=== PATIENT | female | born 1955 | race Caucasian/White ===

== ENCOUNTER 2020-02-04 15:52 | Outpatient (REF) | payer OTHER, SELFPAY ==
[2020-02-05 13:31] LABS: BV Int Neg Control Negative (Negative); BV Int Pos Control Positive (Positive)
== END 2020-02-04 15:53 | disposition home or self-care (01) ==
LOC: HO.LNP 15:52
PROVIDERS: Visit Provider Nurse Practitioner Family
DX: N30.90 Cystitis, unspecified without hematuria (principal)
CPT/HCPCS: 87086; 87480; 87510; 87660

== ENCOUNTER → 2020-07-20 11:13 | Outpatient (BNVA) | payer OTHER, SELFPAY | PROVIDERS: PCP Nurse Practitioner Family; Visit Provider Internal Medicine ==

== ENCOUNTER → 2020-09-15 10:19 | Outpatient (BNVA) | payer MEDICARE, MEDICAID, SELFPAY | PROVIDERS: PCP Nurse Practitioner Family; Visit Provider Internal Medicine | DX: J45.909 Unspecified asthma, uncomplicated (principal); R05 Cough; F17.200 Nicotine dependence, unspecified, uncomplicated; Z79.899 Other long term (current) drug therapy; Z71.6 Tobacco abuse counseling | CPT/HCPCS: 99212 ==

== ENCOUNTER 2020-12-08 20:28 | Emergency (ER) | payer MEDICARE, MEDICAID, SELFPAY ==
--- NOTE | ~2020-12-08 | CT_ITS ---
EXAMINATION: CT ANGIOGRAM NECK AND HEAD CLINICAL INFORMATION: Left-sided neck and headache COMPARISON: 08/15/2016 TECHNIQUE: Initial noncontrast head CT was performed. Test bolus sequences followed by intravenous administration 70 mL of Omnipaque 350. Helical imaging was performed in the axial plane from the thoracic inlet to the skull vertex. Delayed postcontrast imaging of the head was also performed. The data was processed at the orthopaedic technologist's workstation for generation of MIP sequences. Angled MIPs and volume rendered reformatted images were also generated at an offline 3D workstation. Stenoses are assessed in accordance with NASCET criteria unless otherwise indicated. DOSE LOWERING TECHNIQUES: This CT examination was performed using dose optimization techniques as appropriate, variously including the following: - Automated exposure control - Adjustment of mA and/or kV according to patient size (this includes techniques or standardized protocols for targeted exams were dose is matched to indication/reason for exam; i.e. extremities or head) - Use of iterative reconstruction technique DLP: 2144 mGy-cm FINDINGS: Neck CTA: There is a classic 3 vessel branching pattern of the aortic arch. Normal appearance of the visualized aortic arch and proximal branches. No evidence of stenosis at the branch origins. Both vertebral arteries are widely patent throughout their extracranial cervical course. There is mild calcification at the common carotid artery bifurcations bilaterally without significant stenosis. Otherwise normal appearance of the common and internal carotid arteries without focal stenosis. Brain CTA: Normal appearance of the intradural vertebral arteries; the left vertebral artery is dominant. Normal appearance of the basilar and superior cerebellar arteries. Normal appearance of the posterior cerebral arteries bilaterally. Normal appearance of the intradural internal carotid arteries without focal stenosis. Normal appearance of the anterior cerebral and middle cerebral arteries without focal occlusion or stenosis. Normal anterior communicating artery. Normal arborization of the middle cerebral arteries. CT Head: No intracranial mass, hemorrhage, extra-axial collection, or midline shift. The rodriguez-white matter differentiation is preserved. No pathologic intra-axial enhancement or regional oligemia. No hydrocephalus. The mastoid air cells and paranasal sinuses remain well aerated. CT Neck: The thyroid gland and remaining cervical soft tissues are normal in appearance. Patient is status post ACDF at C5-C6. Upper Chest: No abnormalities in the visualized lung apices or upper mediastinum. CT/CT angio head neck IMPRESSION: No acute intracranial findings. No hemodynamically significant stenosis in the major arteries of the neck. No large vessel occlusion or significant stenosis in the intracranial circulation.
[2020-12-08 20:41] VITALS: BP 143/96; PULSE 61; RESP 17; TEMP 36.7; O2SAT 96; BMI 33.2
--- NOTE | 2020-12-08 21:24 | ED_ITS ---
HPI - General Adult General Chief complaint: General Medical Stated complaint: headache Time Seen by Provider: 12/08/20 21:24 Source: patient Mode of arrival: ambulatory Limitations: no limitations History of Present Illness HPI narrative: Patient complaining of left-sided headache for last 1 week since yesterday noticed pain going to the neck 50 when she moves her neck on the left side also feel off balance which is going on for a while no nausea no vomiting patient has history of TIAs/CVA with right-sided weakness with full recovery on Plavix Related Data Home Medications Medication Instructions Recorded Confirmed cholecalciferol (vitamin D3) 10 10 mcg PO DAILY 02/03/20 08/03/20 mcg (400 unit) tablet citalopram 40 mg tablet 40 mg PO DAILY 02/03/20 08/03/20 lorazepam 1 mg tablet 1 mg PO BID PRN 02/03/20 08/03/20 albuterol sulfate 90 mcg/actuation 2 puff INHALATION Q6H PRN 07/20/20 08/03/20 aerosol inhaler Previous Rx's Medication Instructions Recorded trazodone 50 mg tablet 100 mg PO DAILY 30 Days #60 tab 05/18/20 betamethasone dipropionate 0.05 % 1 appl TOPICAL BID PRN #45 g 08/03/20 topical cream mecobalamin (vitamin B12) 1,000 1,000 mcg SUBLINGUAL DAILY 90 Days 08/27/20 mcg disintegrating #90 tab tablet,sublingual gabapentin 600 mg tablet 600 mg PO TID 90 Days #270 tab 09/15/20 metoprolol tartrate 50 mg tablet 50 mg PO BID 90 Days #180 tab 10/05/20 famotidine 40 mg tablet 40 mg PO BEDTIME #90 tab 10/12/20 atorvastatin 40 mg tablet 40 mg PO DAILY 90 Days #90 tab 11/01/20 clopidogrel 75 mg tablet 75 mg PO DAILY #90 tab 11/08/20 montelukast 10 mg tablet 10 mg PO DAILY 90 Days #90 tab 11/11/20 cyclobenzaprine 10 mg tablet 10 mg PO BEDTIME PRN 30 Days #30 12/08/20 tab Allergies Allergy/AdvReac Type Severity Reaction Status Date / Time aspirin [Aspirin] Allergy Severe ANAPHYLAXIS Verified 12/08/20 20:41 codeine [Codeine] Allergy Intermediate SHORTNESS Verified 12/08/20 20:41 OF BREATH, sob Penicillins Allergy Intermediate rash Verified 12/08/20 20:41 phenytoin Allergy Intermediate SHORTNESS Verified 12/08/20 20:41 OF BREATH,hives shrimp Allergy Mild ITCHY, Verified 12/08/20 20:41 anaphylaxis adhesive tape [ADHESIVE TAPE] Allergy Unknown RASH Verified 12/08/20 20:41 Review of Systems Review of Systems: Yes all other systems are reviewed and are negative [facility]LY [facility] Past Medical History Medical History (Updated 12/09/20 @ 00:39 by Alejandro Mayo MD) Asthma Cough CVA (cerebral vascular accident) Diabetes Dyslipidemia Esophageal stenosis Left sided sciatica Low vitamin B12 level Smoker TIA (transient ischemic attack) Vascular dementia Surgical History H/O arthroscopy H/O: hysterectomy History of removal of cyst Family History Family History Father Cirrhosis Brain cancer Mother No problems noted. Social History Social History Cigarette Packs Per Day: 0.5 Cigarettes Per Day: 5 Years Smoked: age 13 Advance Directives: No Advance Directives Information Provided: Yes Physical Exam Vital Signs: Vital Signs: Last Vital Signs Temp 98.1 F 12/08/20 20:41 Pulse 58 12/08/20 21:45 Resp 16 12/08/20 21:45 BP 124/50 L 12/08/20 21:45 Pulse Ox 94 12/08/20 21:45 Body Mass Index 33.2 Appearance: Alert. Oriented X3. No acute distress. Eyes: PERRLA, No Nystagmus ENT: Pharynx normal. Oral Mucosa moist no temporal artery tenderness no scalp tenderness Neck: Normal inspection. Neck supple. CVS: Normal heart rate and rhythm. Pulses normal. Respiratory: No respiratory distress. Equal air entry bilateral, no wheezing/rales/rhonchi Abdomen: Soft and nontender. Bowel sounds are present, no mass palpable, no CVA tenderness Skin: Skin warm and dry. Normal skin color. Normal skin turgor. Extremities: No lower extremity edema. No calf tenderness Neuro: Oriented X 3. No motor deficit. No sensory deficit.No cerebellar signs , cranial nerves II-XII intact Medical Decision Making MDM Narrative Medical decision making narrative: Patient's left scalp tenderness with pain in the left side of the neck CT head and neck is negative for any acute pathology patient comfortable having headache for the last 1 week likely tension headache. Discharge patient home Lab Data Lab results reviewed: Yes I reviewed the patient's lab results. Result diagrams: 12/08/20 21:44 12/08/20 21:44 Labs: Lab Results 12/08/20 12/08/20 Range/Units 21:44 21:44 WBC 9.9 (4.8-10.8) X10*3/uL RBC 4.14 L (4.20-5.50) X10*6/uL Hgb 10.1 L (12.0-16.0) g/dl Hct 32.1 L (37-47) % MCV 77.5 L (80-98) fL MCH 24.4 L (27.0-33.0) pg MCHC 31.5 (31.0-35.0) g/dl RDW 17.5 H (11.0-16.0) % Plt Count 272 (160-400) X10*3/uL MPV 10.3 (9.4-12.3) fL Immature Gran % (Auto) 0.4 (0.0-0.4) % Neut % (Auto) 50.8 (45-73) % Lymph % (Auto) 36.7 (20-40) % [place] % (Auto) 8.6 (2-11) % Eos % (Auto) 3.0 (0-4) % Baso % (Auto) 0.5 (0-2) % Lymph # (Auto) 3.6 (1.2-4.9) X10*3/uL [place] # (Auto) 0.9 (0.1-1.2) X10*3/uL Eos # (Auto) 0.3 (0.0-0.4) X10*3/uL Baso # (Auto) 0.1 (0.0-0.2) X10*3/uL Abs Immat Gran (auto) 0.04 H (0.00-0.03) X10*3/uL Absolute Neuts (auto) 5.0 (2.0-8.3) X10*3/uL Absolute Nucleated RBC 0.000 (0.0-0.012) X10*3/uL Nucleated RBC % (auto) 0.0 (0.0-0.2) /100WBC Sodium 141 (135-145) mmol/L Potassium 4.1 (3.3-5.1) mmol/L Chloride 109 H (96-108) mmol/L Carbon Dioxide 25 (22-29) mmol/L Anion Gap 11 L (12-20) BUN 9 (9-16) mg/dL Creatinine 0.96 (0.5-1.4) mg/dL Estim Creat Clear Calc 55.8 Estimated GFR 58 Random Glucose 100 (60-115) mg/dL Calcium 8.9 (8.4-10.2) mg/dL Discharge Plan Discharge Clinical Impression: Headache Qualifiers: Headache type: unspecified Headache chronicity pattern: chronic headache Intractability: not intractable Qualified Code(s): R51.9 - Headache, unspecified Patient Disposition: Home, Self-Care Instructions: Acute Headache (ED) Additional Instructions: Rest at home Tylenol for headache Follow with PCP if any concerns Prescriptions: No Action trazodone 50 mg tablet 100 mg PO DAILY 30 Days Qty: 60 RF: 2 mecobalamin (vitamin B12) 1,000 mcg tablet,disintegrating 1,000 mcg sublingual DAILY 90 Days Qty: 90 RF: 0 gabapentin 600 mg tablet 600 mg PO TID 90 Days Qty: 270 RF: 0 metoprolol tartrate 50 mg tablet 50 mg PO BID 90 Days Qty: 180 RF: 0 famotidine 40 mg tablet 40 mg PO BEDTIME Qty: 90 RF: 1 atorvastatin 40 mg tablet 40 mg PO DAILY 90 Days Qty: 90 RF: 1 clopidogrel 75 mg tablet 75 mg PO DAILY Qty: 90 RF: 0 montelukast 10 mg tablet 10 mg PO DAILY 90 Days Qty: 90 RF: 3 cyclobenzaprine 10 mg tablet 10 mg PO BEDTIME PRN (Reason: muscle spasm) 30 Days Qty: 30 RF: 1 citalopram 40 mg tablet 40 mg PO DAILY RF: 0 lorazepam 1 mg tablet 1 mg PO BID PRNRF: 0 cholecalciferol (vitamin D3) 10 mcg (400 unit) tablet 10 mcg PO DAILY RF: 0 betamethasone dipropionate 0.05 % cream 1 appl topical BID PRN (Reason: skin irritation) Qty: 45 RF: 0 albuterol sulfate 90 mcg/actuation HFA aerosol inhaler 2 puff inhalation Q6H PRNRF: 0
[2020-12-08 21:45] VITALS: BP 124/50; PULSE 58; RESP 16; O2SAT 94
[2020-12-08 21:49] LABS: MANUAL DIFF FLAG NO
[2020-12-08 21:50] LABS: Basophils Absolute Auto 0.1 X10*3/uL (0.0-0.2); Basophils Percent Auto 0.5 % (0-2); Eosinophils Absolute Auto 0.3 X10*3/uL (0.0-0.4); Hematocrit 32.1 % (37-47); Hemoglobin 10.1 g/dl (12.0-16.0); Imm Gran Abs Auto 0.04 X10*3/uL (0.00-0.03); Imm Gran Pct Auto 0.4 % (0.0-0.4); Lymphocytes Absolute Auto 3.6 X10*3/uL (1.2-4.9); Lymphocytes Percent Auto 36.7 % (20-40); Mean Corpuscular HGB Conc 31.5 g/dl (31.0-35.0); Mean Corpuscular Hemoglobin 24.4 pg (27.0-33.0); Mean Corpuscular Volume 77.5 fL (80-98); Mean Platelet Volume 10.3 fL (9.4-12.3); Monocytes Absolute Auto 0.9 X10*3/uL (0.1-1.2); Monocytes Percent Auto 8.6 % (2-11); Neutrophils Percent Auto 50.8 % (45-73); Platelet Count 272 X10*3/uL (160-400); Red Blood Count 4.14 X10*6/uL (4.20-5.50); Red Cell Distribution Width 17.5 % (11.0-16.0); White Blood Count 9.9 X10*3/uL (4.8-10.8)
[2020-12-08 22:13] LABS: Anion Gap 11 (12-20); Blood Urea Nitrogen 9 mg/dL (9-16); Calcium 8.9 mg/dL (8.4-10.2); Carbon Dioxide 25 mmol/L (22-29); Chloride 109 mmol/L (96-108); Creatinine Clr Calc Pharmacy 55.8; Estimated Glomerular Filt Rate 58; Glucose Random 100 mg/dL (60-115); Potassium 4.1 mmol/L (3.3-5.1); Sodium 141 mmol/L (135-145)
[2020-12-09] MEDS: iohexoL 350 MG/ML 100 ML INFUS..BTL 70 ML IV (00:06)
== END 2020-12-09 01:11 | disposition home or self-care (01) ==
PROVIDERS: Emergency Provider Internal Medicine; PCP Nurse Practitioner Family
DX: R51.9 Headache, unspecified (principal); Z86.73 Personal history of transient ischemic attack (TIA), and cerebral infarction without residual deficits; E11.9 Type 2 diabetes mellitus without complications; E78.5 Hyperlipidemia, unspecified; F17.210 Nicotine dependence, cigarettes, uncomplicated; Z79.02 Long term (current) use of antithrombotics/antiplatelets; Z79.899 Other long term (current) drug therapy
CPT/HCPCS: 36415; 70496; 70498; 80048; 85025; 99284; Q9967

== ENCOUNTER 2020-12-26 09:15 | Outpatient (REF) | payer MEDICARE, MEDICAID, SELFPAY ==
[2020-12-26 11:24] LABS: Basophils Percent Auto 0.6 % (0-2); Estimated Average Glucose 126 mg/dL; Hemoglobin 10.7 g/dl (12.0-16.0); MANUAL DIFF FLAG SCAN; PLT CLUMP 1; SCAN SMEAR FLAG 1
[2020-12-26 11:26] LABS: Eosinophils Absolute Auto 0.2 X10*3/uL (0.0-0.4); Hematocrit 35.1 % (37-47); Imm Gran Abs Auto 0.01 X10*3/uL (0.00-0.03); Imm Gran Pct Auto 0.1 % (0.0-0.4); Lymphocytes Absolute Auto 2.4 X10*3/uL (1.2-4.9); Mean Corpuscular HGB Conc 30.5 g/dl (31.0-35.0); Mean Corpuscular Hemoglobin 23.9 pg (27.0-33.0); Mean Corpuscular Volume 78.5 fL (80-98); Mean Platelet Volume 10.5 fL (9.4-12.3); Monocytes Absolute Auto 0.7 X10*3/uL (0.1-1.2); Monocytes Percent Auto 9.3 % (2-11); Neutrophils Absolute Auto 3.7 X10*3/uL (2.0-8.3); Platelet Count 275 X10*3/uL (160-400); Red Blood Count 4.47 X10*6/uL (4.20-5.50); Red Cell Distribution Width 18.8 % (11.0-16.0)
[2020-12-26 11:47] LABS: Creatinine Urine 80.29 mg/dL; Microalbum/Creatinine Ratio Ur 11.2 ug/mg cr
[2020-12-26 11:53] LABS: Alanine Aminotransferase 29 U/L (0-31); Alkaline Phosphatase 59 U/L (39-117); Anion Gap 14 (12-20); Aspartate Amino Transferase 26 U/L (5-31); Blood Urea Nitrogen 8 mg/dL (9-16); Carbon Dioxide 24 mmol/L (22-29); Chloride 107 mmol/L (96-108); Cholesterol 121 mg/dL; Estimated Glomerular Filt Rate > 60; Glucose Fasting 109 mg/dL (60-99); HDL Cholesterol 43 mg/dL; LDL Cholesterol Calculated 56 mg/dl; Potassium 4.4 mmol/L (3.3-5.1); Sodium 141 mmol/L (135-145); Total Protein 6.8 g/dL (6.5-8.0); Triglycerides 112 mg/dL
[2020-12-26 11:58] LABS: TSH reflex Free T4 0.73 uIU/mL (0.32-4.0)
[2020-12-26 12:02] LABS: Bilirubin Total 0.2 mg/dL (0.0-1.0)
[2020-12-26 12:56] LABS: SLIDE REVIEW VERIFIED
[2020-12-28 09:36] LABS: Vitamin B12 646 pg/mL (200-900)
== END 2020-12-26 09:16 | disposition home or self-care (01) ==
LOC: HO.HMGCLDS 09:15
PROVIDERS: PCP Nurse Practitioner Family; Visit Provider Nurse Practitioner Family
DX: E11.9 Type 2 diabetes mellitus without complications (principal); E53.8 Deficiency of other specified B group vitamins
CPT/HCPCS: 36415; 80053; 80061; 82043; 82607; 83036; 84443; 85025

== ENCOUNTER 2021-01-27 | Outpatient (REF) | payer MEDICARE, MEDICAID, SELFPAY ==
[2021-02-01 15:27] LABS: FIT1 NEGATIVE (NEGATIVE)
[2021-02-01 15:28] LABS: FIT Int Ctl YES; FIT2 POSITIVE (NEGATIVE)
== END 2021-01-27 00:01 | disposition home or self-care (01) ==
LOC: HO.LNP
PROVIDERS: Visit Provider Nurse Practitioner Family
DX: D64.9 Anemia, unspecified (principal)
CPT/HCPCS: 82274

== ENCOUNTER → 2021-03-23 10:13 | Outpatient (BNVA) | payer MEDICARE, MEDICAID, SELFPAY | PROVIDERS: PCP Nurse Practitioner Family; Visit Provider Internal Medicine | DX: J45.909 Unspecified asthma, uncomplicated (principal); J44.9 Chronic obstructive pulmonary disease, unspecified; F17.200 Nicotine dependence, unspecified, uncomplicated | CPT/HCPCS: 99212 ==

== ENCOUNTER 2021-07-13 10:13 | Outpatient (REF) | payer OTHER, MEDICAID, SELFPAY ==
[2021-07-13 11:32] LABS: Appearance Urine CLEAR; Color Urine YELLOW; Glucose Urine UA NEG (NEG); Leukocyte Esterase Urine TRACE (NEG); Nitrite Urine NEG (NEG); PH 5.5 (5.0-8.0); UACC Culture Trigger YES; Urine Blood NEG (NEG); Urine Ketones NEG (NEG); Urine Protein NEG (NEG-TRACE)
[2021-07-13 11:50] LABS: Bacteria Urine TRACE /LPF; RBC Urine 0 /HPF (0); Squamous Epithelial Cell Urine TRACE /LPF
[2021-07-13 12:14] LABS: Alanine Aminotransferase 32 U/L (0-31); Alkaline Phosphatase 57 U/L (39-117); Anion Gap 14 (12-20); Aspartate Amino Transferase 30 U/L (5-31); Bilirubin Total 0.3 mg/dL (0.0-1.0); Blood Urea Nitrogen 12 mg/dL (9-16); Calcium 9.7 mg/dL (8.4-10.2); Carbon Dioxide 25 mmol/L (22-29); Chloride 105 mmol/L (96-108); Cholesterol 128 mg/dL; Estimated Average Glucose 131 mg/dL; Estimated Glomerular Filt Rate 60; Glucose Fasting 135 mg/dL (60-99); HDL Cholesterol 46 mg/dL; Hemoglobin A1c % 6.2 %; LDL Cholesterol Calculated 58 mg/dl; Potassium 4.6 mmol/L (3.3-5.1); Sodium 139 mmol/L (135-145); Total Protein 7.1 g/dL (6.5-8.0); Triglycerides 124 mg/dL
[2021-07-13 12:15] LABS: Vitamin D 25-OH Total 12.2 ng/mL (>30)
[2021-07-13 12:20] LABS: Creatinine Urine 64.05 mg/dL; Microalbum/Creatinine Ratio Ur 9.3 ug/mg cr
[2021-07-13 12:25] LABS: Vitamin B12 328 pg/mL (200-900)
== END 2021-07-13 10:14 | disposition home or self-care (01) ==
LOC: HO.HMGCLDS 10:13
PROVIDERS: PCP Nurse Practitioner Family; Visit Provider Nurse Practitioner Family
DX: Z00.00 Encounter for general adult medical examination without abnormal findings (principal); E11.9 Type 2 diabetes mellitus without complications; E53.8 Deficiency of other specified B group vitamins; Z78.0 Asymptomatic menopausal state
CPT/HCPCS: 36415; 80053; 80061; 81001; 82043; 82306; 82607; 82746; 83036; 84443; 87086

== ENCOUNTER 2021-08-04 08:21 | Outpatient (REF) | payer OTHER, SELFPAY ==
--- NOTE | ~2021-08-04 | US_ITS ---
EXAMINATION: US ABDOMEN COMPLETE CLINICAL INFORMATION: Epigastric pain. COMPARISON: Renal ultrasound 06/26/2019. TECHNIQUE: Real-time imaging of the abdominal viscera. FINDINGS: PANCREAS: The visualized portion of the pancreas head and body are normal, portion of the pancreatic body and tail, not visualized are obscured by bowel gas. ABDOMINAL AORTA: The proximal, mid, and distal segments are normal in caliber. INFERIOR VENA CAVA: Visualized portions are normal. LIVER: The liver is normal in size. The liver contour is normal. No focal hepatic lesion. There is no intrahepatic biliary duct dilatation seen. GALLBLADDER: Normal. The gallbladder is physiologically distended without evidence of stones, sludge, polyps, wall thickening or pericholecystic fluid. COMMON BILE DUCT: Normal in caliber measuring 0.3 cm in diameter. RIGHT KIDNEY: Normal. No hydronephrosis. No renal calculi or focal parenchymal lesions. The kidney measures 10.1 cm in maximum dimension. LEFT KIDNEY: Normal. No hydronephrosis. No renal calculi or focal parenchymal lesions. The kidney measures 9.1 cm in maximum dimension. SPLEEN: Normal. The spleen measures 9.7 cm in maximum dimension. FREE FLUID: None. US/US abdomen complete IMPRESSION: Normal ultrasound, no evidence of gallbladder disease or gallstones. No ultrasound explanation for patient's epigastric pain. Pancreas partially visualized obscured by bowel gas.
== END 2021-08-04 08:22 | disposition home or self-care (01) ==
LOC: HO.HMGCX 08:21
PROVIDERS: Visit Provider Internal Medicine
DX: R10.13 Epigastric pain (principal)
CPT/HCPCS: 76700

== ENCOUNTER 2021-08-18 08:43 | Day surgery (SDC) | payer MEDICARE, SELFPAY ==
[2021-08-13 09:25] VITALS: BMI 33.0
--- NOTE | 2021-08-17 10:29 | HO.ANESPROP2 ---
Documented by User: Ghazal Aceves NP 08/17/21 10:31 HPI - Anesthesia Eval Consult details Narrative: 66yo F for Upper Endoscopy *Multiple Med Allergies* PMFSH Active Problems Active Problems: All Active Problems (Updated 07/13/21 @ 09:59 by Ilan Holden, [facility]) Screening for breast cancer (Acute) Postmenopausal (Acute) Physical exam (Acute) Allergic rhinitis (Acute) Anemia (Acute) Insomnia (Acute) Asthma (Acute) Dermatitis (Acute) Cough (Acute) Smoker (Acute) B12 deficiency (Acute) Diabetes (Acute) COPD (chronic obstructive pulmonary disease) (Acute) Vaginal itching (Acute) Dysuria (Acute) Past Medical History Medical History Allergic rhinitis Asthma Cough CVA (cerebral vascular accident) Diabetes Dyslipidemia Esophageal stenosis Left sided sciatica Low vitamin B12 level Smoker TIA (transient ischemic attack) Vascular dementia Family History Family History Father Cirrhosis Brain cancer Mother No problems noted. Surgical History Surgical History H/O arthroscopy H/O: hysterectomy History of removal of cyst Social History Social History Housing: House Patient Tobacco Use Status: Current everyday Tobacco user Tobacco use type: Cigarette Cigarette Packs Per Day: 0.5 Cigarettes Per Day: 4 Years Smoked: age 13 e-Cigarette/Vaping Use: Never Used Second Hand Smoke Exposure: No Use of substances other than those prescribed or required for medical reasons: No Are you DNR?: No Advance Directives: No Advance Directives Information Provided: Yes Current occupational status: retired and disabled Meds Allergies Allergy/AdvReac Type Severity Reaction Status Date / Time aspirin [Aspirin] Allergy Severe ANAPHYLAXIS Verified 07/13/21 09:32 codeine [Codeine] Allergy Intermediate SHORTNESS Verified 07/13/21 09:32 OF BREATH, sob Penicillins Allergy Intermediate rash Verified 07/13/21 09:32 phenytoin Allergy Intermediate SHORTNESS Verified 07/13/21 09:32 OF BREATH,hives shrimp Allergy Mild ITCHY, Verified 07/13/21 09:32 anaphylaxis adhesive tape [ADHESIVE TAPE] Allergy Unknown RASH Verified 07/13/21 09:32 Home Medications Medication Instructions Recorded Confirmed Last Taken Type albuterol sulfate 90 mcg/actuation 2 puff INHALATION Q6H PRN 07/20/20 08/03/20 Unknown History aerosol inhaler Exam Exam Date and Time: August 17, 2021 1029 Height,Weight and Vital Signs: Height 5 ft 2 in Weight 82.1 kg Pertinent Lab Results Pertinent Lab Results: Laboratory Tests 12/26/20 07/13/21 09:21 10:20 WBC 7.0 Hgb 10.7 L Hct 35.1 L Plt Count 275 Sodium 139 Potassium 4.6 Chloride 105 Carbon Dioxide 25 BUN 12 Creatinine 0.94 Assessment and Plan Assessment Anesthesia Assessment: Chart Reviewed Documented by User: Korey Escalante MD 08/18/21 14:56 HPI - Anesthesia Eval Consult details Narrative: 66yo F for Upper Endoscopy *Multiple Med Allergies* CVA , residual weakness right side , headache . PMFSH Past Medical History Medical History Allergic rhinitis Asthma Cough CVA (cerebral vascular accident) Diabetes Dyslipidemia Esophageal stenosis Left sided sciatica Low vitamin B12 level Smoker TIA (transient ischemic attack) Vascular dementia Family History Family History Father Cirrhosis Brain cancer Mother No problems noted. Family history of problems with anesthesia: No Surgical History Surgical History H/O arthroscopy H/O: hysterectomy History of removal of cyst History of Problems with Anesthesia: Yes (Delayed emergence ) Social History Social History Housing: House Patient Tobacco Use Status: Current everyday Tobacco user Tobacco use type: Cigarette Cigarette Packs Per Day: 0.5 Cigarettes Per Day: 4 Years Smoked: age 13 e-Cigarette/Vaping Use: Never Used Second Hand Smoke Exposure: No Use of substances other than those prescribed or required for medical reasons: No Are you DNR?: No Advance Directives: No Advance Directives Information Provided: Yes Current occupational status: retired and disabled Meds Allergies Allergy/AdvReac Type Severity Reaction Status Date / Time aspirin [Aspirin] Allergy Severe ANAPHYLAXIS Verified 07/13/21 09:32 codeine [Codeine] Allergy Intermediate SHORTNESS Verified 07/13/21 09:32 OF BREATH, sob Penicillins Allergy Intermediate rash Verified 07/13/21 09:32 phenytoin Allergy Intermediate SHORTNESS Verified 07/13/21 09:32 OF BREATH,hives shrimp Allergy Mild ITCHY, Verified 07/13/21 09:32 anaphylaxis adhesive tape [ADHESIVE TAPE] Allergy Unknown RASH Verified 07/13/21 09:32 Home Medications Medication Instructions Recorded Confirmed Last Taken Type albuterol sulfate 90 mcg/actuation 2 puff INHALATION Q6H PRN 07/20/20 08/03/20 Unknown History aerosol inhaler Exam Airway Mallampati Class: III TM Dist: >3cm Neck ROM: Limited Denture: Upper Loose/Missing/Broken Teeth: Yes Heart: S1,S2 Lungs: b/l breath sounds Assessment and Plan Assessment Anesthesia Assessment: Anesthesia Plan Discussed Final Anesthetic Review Family History of Problems with Anesthesia: No History of Problems with Anesthesia: Yes (Delayed emergence ) NPO: Yes ASA Class: III Final Preanesthetic Review: Meds/Allgs Chart Reviewed, Consent Obtained/Reviewed and Anes Risks/Benef Reviewed Patient Risk: Intermediate Procedure Risk: Intermediate Anesthetic Plan Anesthetic Plan: MAC: Disposition: Standard PACU
[2021-08-18 09:08] VITALS: BMI 33.0
[2021-08-18 09:31] VITALS: BP 131/66; PULSE 58; RESP 16; TEMP 35.7; O2SAT 97
[2021-08-18 09:35] LABS: Glucose, Whole Blood 111 mg/dL (60-115)
[2021-08-18] MEDS: Lactated Ringers 1,000 ML 100 ML IVCONT (09:41)
[2021-08-18 10:50] VITALS: BP 100/58; PULSE 61; RESP 16; TEMP 36.2; O2SAT 94
--- NOTE | 2021-08-18 10:53 | P.BOP_ITS ---
Brief Operative Note Date of Service: 08/18/21 Pre-op diagnosis: Abdominal pain Post-op diagnosis: other (Mild gastritis) Procedure: EGD with biopsies Surgeon: Jaime Jensen Anesthesia: MAC Was an Subway Train Driver used for this Procedure?: No Estimated blood loss (mL): 2.0 Pathology: other (A. Descending duodenum B. Gastric antrum) Condition: stable Disposition: PACU
[2021-08-18 11:05] VITALS: BP 115/69; PULSE 60; RESP 16; O2SAT 93
[2021-08-18 11:20] VITALS: BP 115/62; PULSE 60; RESP 18; TEMP 36.2; O2SAT 95
--- NOTE | 2021-08-18 22:27 | OP_ITS ---
SURGEON: Jaime Jensen MD INDICATIONS: The patient presents for evaluation of abdominal discomfort. Full consent was obtained from her for this, including risks of bleeding and perforation. PREOPERATIVE DIAGNOSIS: Abdominal discomfort. POSTOPERATIVE DIAGNOSIS: PROCEDURE PERFORMED: Esophagogastroduodenoscopy with biopsies. ESTIMATED BLOOD LOSS: COMPLICATIONS: ANESTHESIA: Monitored anesthesia care. ASSISTANTS: SPECIMENS: POSTOPERATIVE DIAGNOSES: Abdominal discomfort, mild gastritis. DESCRIPTION OF PROCEDURE: The patient was placed in the left lateral decubitus position. The Olympus video gastroscope was passed in the posterior oropharynx and upper esophagus under direct vision. The scope was passed slowly into the distal esophagus. The gastroesophageal junction appeared normal at 35 cm. There was no sign of any esophagitis nor Ford mucosa. The scope easily entered the stomach. I did not appreciate any hiatal hernia. The scope was advanced to the pylorus and the duodenum was cannulated to the descending portion. The duodenum including the bulb appeared normal. Biopsies were obtained from the second and third portions of duodenum. There was no ulceration or mass. The scope was withdrawn back into the stomach. The gastric antrum and body had some mild areas of erythema, but otherwise appeared normal. Peristalsis appeared normal. Biopsies were obtained from the antrum. Scope was retroflexed visualizing the proximal stomach carefully. This area appeared normal, without mass or ulceration. There was evidence of a previous fundoplication. The scope was straightened and withdrawn back in the esophagus. The esophageal mucosa appeared normal. The scope was withdrawn from the patient. She tolerated the procedure well and was returned to the recovery area in stable condition. IMPRESSION: 1. Mild gastritis. 2. Intact fundoplication. PLAN: The results of the biopsy will be checked. She did have a recent abdominal ultrasound that was negative for gallstones. She was advised to continue her omeprazole as well as dicyclomine p.r.n. She will see me later in the year for a followup visit. MD OXANA Roger/TITO / [id number]
== END 2021-08-18 11:59 | disposition home or self-care (01) ==
PROVIDERS: PCP Nurse Practitioner Family; Visit Provider Internal Medicine
PROC: 0DJ08ZZ Inspection of Upper Intestinal Tract, Via Natural or Artificial Opening Endoscopic (ICD-10-PCS; CPT 43235; principal; 2021-08-18 10:00)
DX: K29.50 Unspecified chronic gastritis without bleeding (principal); K21.9 Gastro-esophageal reflux disease without esophagitis; K58.9 Irritable bowel syndrome, unspecified; E78.5 Hyperlipidemia, unspecified; E11.9 Type 2 diabetes mellitus without complications; J44.9 Chronic obstructive pulmonary disease, unspecified; I69.828 Other speech and language deficits following other cerebrovascular disease; R41.3 Other amnesia; Z79.899 Other long term (current) drug therapy; Z88.0 Allergy status to penicillin; Z88.2 Allergy status to sulfonamides; Z88.8 Allergy status to other drugs, medicaments and biological substances; Z98.890 Other specified postprocedural states; F17.210 Nicotine dependence, cigarettes, uncomplicated
CPT/HCPCS: 43239; 82947; 88305; 88342; J3010

== ENCOUNTER → 2021-09-20 09:49 | Outpatient (BNVA) | payer MEDICARE, SELFPAY | PROVIDERS: PCP Nurse Practitioner Family; Visit Provider Internal Medicine | DX: J44.9 Chronic obstructive pulmonary disease, unspecified (principal); J30.9 Allergic rhinitis, unspecified; R05.9 Cough, unspecified; F17.210 Nicotine dependence, cigarettes, uncomplicated | CPT/HCPCS: 99212 ==

== ENCOUNTER 2021-10-12 11:13 | Outpatient (REF) | payer MEDICARE, MEDICAID, SELFPAY ==
[2021-10-12 13:33] LABS: MANUAL DIFF FLAG NO
[2021-10-12 13:41] LABS: Appearance Urine CLEAR; Color Urine YELLOW; Glucose Urine UA NEG (NEG); Leukocyte Esterase Urine 1+ (NEG); Nitrite Urine NEG (NEG); UACC Culture Trigger YES; Urine Blood NEG (NEG); Urine Ketones NEG (NEG); Urine Protein NEG (NEG-TRACE)
[2021-10-12 13:44] LABS: Basophils Absolute Auto 0.1 X10*3/uL (0.0-0.2); Basophils Percent Auto 0.8 % (0-2); Eosinophils Absolute Auto 0.2 X10*3/uL (0.0-0.4); Eosinophils Percent Auto 1.8 % (0-4); Hematocrit 34.2 % (37.0-47.0); Hemoglobin 10.4 g/dl (12.0-16.0); Imm Gran Abs Auto 0.05 X10*3/uL (0.00-0.03); Imm Gran Pct Auto 0.4 % (0.0-0.4); Lymphocytes Absolute Auto 2.6 X10*3/uL (1.2-4.9); Lymphocytes Percent Auto 22.4 % (20-40); Mean Corpuscular HGB Conc 30.4 g/dl (31.0-35.0); Mean Corpuscular Hemoglobin 22.9 pg (27.0-33.0); Mean Corpuscular Volume 75.2 fL (80.0-98.0); Monocytes Absolute Auto 0.9 X10*3/uL (0.1-1.2); Monocytes Percent Auto 7.5 % (2-11); Neutrophils Absolute Auto 7.6 x10*3/uL (2.0-8.3); Neutrophils Percent Auto 67.1 % (45-73); Platelet Count 355 X10*3/uL (160-400); Red Blood Count 4.55 X10*6/uL (4.20-5.50); Red Cell Distribution Width 20.1 % (11.0-16.0); White Blood Count 11.4 X10*3/uL (4.8-10.8)
[2021-10-12 14:02] LABS: RBC Urine 0 /HPF (0); WBC Clumps Urine NOTED
[2021-10-12 14:19] LABS: Estimated Average Glucose 126 mg/dL
[2021-10-12 14:20] LABS: Alanine Aminotransferase 30 U/L (0-31); Albumin Level 3.9 g/dL (3.5-5.0); Alkaline Phosphatase 51 U/L (39-117); Anion Gap 11 (12-20); Aspartate Amino Transferase 25 U/L (5-31); Bilirubin Total 0.3 mg/dL (0.0-1.0); Blood Urea Nitrogen 9 mg/dL (9-16); Calcium 9.2 mg/dL (8.4-10.2); Carbon Dioxide 26 mmol/L (22-29); Chloride 108 mmol/L (96-108); Cholesterol 121 mg/dL; Estimated Glomerular Filt Rate 59; Glucose Fasting 105 mg/dL (60-99); HDL Cholesterol 45 mg/dL; LDL Cholesterol Calculated 54 mg/dl; Potassium 4.6 mmol/L (3.3-5.1); Sodium 140 mmol/L (135-145); Total Protein 6.8 g/dL (6.5-8.0); Triglycerides 112 mg/dL
== END 2021-10-12 11:14 | disposition home or self-care (01) ==
LOC: HO.HMGCLDS 11:13
PROVIDERS: PCP Nurse Practitioner Family; Visit Provider Nurse Practitioner Family
DX: E11.9 Type 2 diabetes mellitus without complications (principal); N39.0 Urinary tract infection, site not specified
CPT/HCPCS: 36415; 80053; 80061; 81001; 83036; 85025; 87086

== ENCOUNTER 2021-10-24 | Outpatient (REF) | payer MEDICARE, MEDICAID, SELFPAY ==
[2021-10-25 12:10] LABS: FIT Int Ctl YES; FIT1 NEGATIVE (NEGATIVE); FIT2 NEGATIVE (NEGATIVE)
== END 2021-10-24 00:01 | disposition home or self-care (01) ==
LOC: HO.LNP
PROVIDERS: Visit Provider Nurse Practitioner Family
DX: D64.9 Anemia, unspecified (principal)
CPT/HCPCS: 82274

== ENCOUNTER 2021-12-23 10:08 | Outpatient (REF) | payer MEDICARE, MEDICAID, SELFPAY ==
[2021-12-23 14:18] LABS: MANUAL DIFF FLAG NO
[2021-12-23 14:32] LABS: Basophils Absolute Auto 0.1 X10*3/uL (0.0-0.2); Basophils Percent Auto 0.9 % (0-2); Eosinophils Absolute Auto 0.2 X10*3/uL (0.0-0.4); Eosinophils Percent Auto 2.3 % (0-4); Hematocrit 43.3 % (37.0-47.0); Hemoglobin 14.1 g/dl (12.0-16.0); Imm Gran Abs Auto 0.02 X10*3/uL (0.00-0.03); Imm Gran Pct Auto 0.2 % (0.0-0.4); Lymphocytes Absolute Auto 2.6 X10*3/uL (1.2-4.9); Lymphocytes Percent Auto 30.9 % (20-40); Mean Corpuscular HGB Conc 32.6 g/dl (31.0-35.0); Mean Corpuscular Hemoglobin 28.4 pg (27.0-33.0); Mean Corpuscular Volume 87.3 fL (80.0-98.0); Mean Platelet Volume 10.9 fL (9.4-12.3); Monocytes Absolute Auto 0.6 X10*3/uL (0.1-1.2); Monocytes Percent Auto 6.9 % (2-11); Neutrophils Percent Auto 58.8 % (45-73); Platelet Count 258 X10*3/uL (160-400); Red Blood Count 4.96 X10*6/uL (4.20-5.50); Red Cell Distribution Width 22.8 % (11.0-16.0); White Blood Count 8.5 X10*3/uL (4.8-10.8)
[2021-12-23 14:44] LABS: Iron 132 mcg/dL (30-160); Percent Iron Saturation 38 % (15-50); Total Iron Binding Capacity 351 mcg/dL (228-428); Unsaturated Iron Binding 219 ug/dL
[2021-12-23 15:07] LABS: Ferritin 47 ng/mL (10-250)
[2021-12-23 15:57] LABS: Folate 3.8 ng/mL (> or = 4.0); Vitamin B12 1664 pg/mL (200-900)
== END 2021-12-23 10:09 | disposition home or self-care (01) ==
LOC: HO.10HDL 10:08
PROVIDERS: Visit Provider Internal Medicine
DX: D50.9 Iron deficiency anemia, unspecified (principal)
CPT/HCPCS: 36415; 82607; 82728; 82746; 83540; 85025

== ENCOUNTER 2022-02-07 11:20 | Day surgery (SDC) | payer MEDICARE, MEDICAID, SELFPAY ==
[2022-02-07 11:38] VITALS: BMI 32.6
[2022-02-07 12:10] VITALS: BP 139/69; PULSE 73; RESP 18; TEMP 36.3; O2SAT 94
--- NOTE | 2022-02-07 12:14 | HO.ANESPROP2 ---
HPI - Anesthesia Eval Consult details Narrative: 66 yo female patient for colonoscopy PMFSH Active Problems Active Problems: All Active Problems (Updated 09/20/21 @ 10:33 by Cynthia Ga MD) Screening for breast cancer (Acute) Postmenopausal (Acute) Physical exam (Acute) Allergic rhinitis (Acute) Anemia (Acute) Insomnia (Acute) Asthma (Acute) Dermatitis (Acute) Cough (Acute) Smoker (Acute) B12 deficiency (Acute) Diabetes (Acute) COPD (chronic obstructive pulmonary disease) (Acute) Vaginal itching (Acute) Dysuria (Acute) CVA with residual Right sided weakness. Sometimes uses walker Past Medical History Medical History Allergic rhinitis Asthma Cough CVA (cerebral vascular accident) Diabetes Dyslipidemia Esophageal stenosis Left sided sciatica Low vitamin B12 level Smoker TIA (transient ischemic attack) Vascular dementia Family History Family History Father Cirrhosis Brain cancer Mother No problems noted. Family history of problems with anesthesia: No Surgical History Surgical History H/O arthroscopy H/O: hysterectomy History of removal of cyst History of Problems with Anesthesia: Yes (Delayed emergence ) Social History Social History Housing: House Patient Tobacco Use Status: Current everyday Tobacco user Tobacco use type: Cigarette Cigarette Packs Per Day: 0.5 Cigarettes Per Day: 5 Years Smoked: age 13 e-Cigarette/Vaping Use: Never Used Second Hand Smoke Exposure: No Use of substances other than those prescribed or required for medical reasons: No Are you DNR?: No Advance Directives: No Advance Directives Information Provided: Yes Advance Directives on File: No Current occupational status: retired and disabled Cognitive needs: No Hearing needs: No Vision needs: No Meds Allergies Allergy/AdvReac Type Severity Reaction Status Date / Time aspirin [Aspirin] Allergy Severe ANAPHYLAXIS Verified 01/20/22 10:44 codeine [Codeine] Allergy Intermediate SHORTNESS Verified 01/20/22 10:44 OF BREATH, sob Penicillins Allergy Intermediate rash Verified 01/20/22 10:44 phenytoin Allergy Intermediate SHORTNESS Verified 01/20/22 10:44 OF BREATH,hives shrimp Allergy Mild ITCHY, Verified 01/20/22 10:44 anaphylaxis adhesive tape [ADHESIVE TAPE] Allergy Unknown RASH Verified 01/20/22 10:44 Active Medications: Current Medications Sodium Biphosphate/Sodium Phosphate (Sodium Phosphate,[place]-Dibasic 133 Ml Enema) 133 ml LA ONCE PRN PRN Reason: Poor Colonoscopy Prep Results Exam Exam Date and Time: February 07, 2022 1214 Height,Weight and Vital Signs: Height 5 ft 1 in Weight 78.471 kg Last Vital Signs Temp 97.3 F 02/07/22 12:10 Pulse 73 02/07/22 12:10 Resp 18 02/07/22 12:10 BP 139/69 02/07/22 12:10 Pulse Ox 94 02/07/22 12:10 O2 Del Method 02/07/22 12:10 Pertinent Lab Results Pertinent Lab Results: Lab Results 02/07/22 Range/Units 12:12 POC Glucose 125 H (60-115) mg/dL Airway Mallampati Class: II TM Dist: >3cm Neck ROM: Full Denture: Upper Loose/Missing/Broken Teeth: No (Denies broken or loose teeth) Heart: RRR Lungs: CTAB. No wheezes Assessment and Plan Final Anesthetic Review Family History of Problems with Anesthesia: No History of Problems with Anesthesia: Yes (Delayed emergence ) NPO: Yes ASA Class: III Final Preanesthetic Review: No Changes in Pt Med Stat, Meds/Allgs Chart Reviewed, Consent Obtained/Reviewed and Anes Risks/Benef Reviewed Patient Risk: Intermediate Procedure Risk: Low Assessment/Block/Sedation in SS: Assess/Block/Sedation-SS Anesthetic Plan Anesthetic Plan: MAC: Disposition: Standard PACU
[2022-02-07 12:17] LABS: Glucose, Whole Blood 125 mg/dL (60-115)
[2022-02-07 13:40] VITALS: BP 104/73; PULSE 69; RESP 16; TEMP 36.9; O2SAT 97
--- NOTE | 2022-02-07 13:47 | PM.OP ---
Brief Operative Note Date of Service: 02/07/22 Pre-op diagnosis: Anemia, Heme + stool Post-op diagnosis: other (Diverticulosis) Procedure: Colonoscopy to the cecum and TI Surgeon: Jaime Jensen Anesthesia: MAC Was an Automatic Serging Machine Operator used for this Procedure?: No Estimated blood loss (mL): 0 Pathology: none sent Condition: stable Disposition: PACU
[2022-02-07 13:55] VITALS: BP 117/50; PULSE 69; RESP 16; O2SAT 96
[2022-02-07 14:10] VITALS: BP 126/76; PULSE 65; RESP 16; TEMP 36.9; O2SAT 96
--- NOTE | 2022-02-08 01:30 | OP_ITS ---
SURGEON: Jaime Jensen MD INDICATIONS: The patient presents for evaluation of heme-positive stool and previous anemia. Full consent has been obtained from her for this, including risks of bleeding and perforation. PREOPERATIVE DIAGNOSIS: Heme-positive stool and previous anemia. POSTOPERATIVE DIAGNOSIS: PROCEDURE PERFORMED: Colonoscopy to the cecum and terminal ileum. ESTIMATED BLOOD LOSS: COMPLICATIONS: ANESTHESIA: Monitored anesthesia care. ASSISTANTS: SPECIMENS: POSTOPERATIVE DIAGNOSES: Heme-positive stool and previous anemia, diverticulosis, and internal hemorrhoids. DESCRIPTION OF PROCEDURE: The patient was placed in the left lateral decubitus position. The digital rectal exam revealed no abnormalities. The Olympus video pediatric colonoscope was entered into the rectum advanced easily to the cecum. Once in the cecum, I did identify a normal-appearing cecal pouch with appendiceal orifice and a normal-appearing ileocecal valve. The terminal ileum was cannulated and appeared normal. The scope was withdrawn back in the colon. The entire cecum and ileocecal valve appeared normal. The scope was slowly withdrawn assessing all mucosal surfaces carefully. Preparation was excellent. I did not visualize any sign of polyps, colitis, nor angiodysplasia. There was a mild amount of sigmoid diverticulosis. In the rectum, scope was retroflexed visualizing internal hemorrhoids, but no other pathology. The rectal mucosa appeared normal. The scope was straightened and withdrawn from the patient she tolerated the procedure well and was returned to the recovery area in stable condition. IMPRESSION: 1. Diverticulosis. 2. Internal hemorrhoids. PLAN: Given today's negative exam, no previous history of tubular adenoma, and no family history of colon cancer, I would recommend a followup colonoscopy in 10 years for further screening. She was advised to resume her Plavix today. She was advised to resume her iron today as well. Her most recent labs from just last month revealed a normal hemoglobin of 14.1 with a normal MCV. Her ferritin was normal at 47, and the iron profile showed an iron of 132 with an iron saturation of 38%. B12 level was normal and folate level was slightly low at 3.8. She had been given a prescription for folate replacement in the past as well. She was advised to continue her folate and iron supplements. She will also continue her omeprazole. If things are stable, she will see me on a p.r.n. basis. MD OXANA Roger/TITO / [phone]
== END 2022-02-07 14:35 | disposition home or self-care (01) ==
PROVIDERS: PCP Nurse Practitioner Family; Visit Provider Internal Medicine
PROC: 0DJD8ZZ Inspection of Lower Intestinal Tract, Via Natural or Artificial Opening Endoscopic (ICD-10-PCS; CPT 45378; principal; 2022-02-07 11:30)
DX: D50.9 Iron deficiency anemia, unspecified (principal); R19.5 Other fecal abnormalities; K57.30 Diverticulosis of large intestine without perforation or abscess without bleeding; K64.8 Other hemorrhoids; K58.9 Irritable bowel syndrome, unspecified; J45.909 Unspecified asthma, uncomplicated; E78.5 Hyperlipidemia, unspecified; E11.9 Type 2 diabetes mellitus without complications; I69.328 Other speech and language deficits following cerebral infarction; R41.3 Other amnesia; F17.210 Nicotine dependence, cigarettes, uncomplicated; Z79.02 Long term (current) use of antithrombotics/antiplatelets; Z79.51 Long term (current) use of inhaled steroids; Z79.899 Other long term (current) drug therapy; Z88.0 Allergy status to penicillin; Z88.8 Allergy status to other drugs, medicaments and biological substances
CPT/HCPCS: 45378; 82947

== ENCOUNTER → 2022-03-21 10:22 | Outpatient (BNVA) | payer MEDICARE, MEDICAID, SELFPAY | PROVIDERS: PCP Nurse Practitioner Family; Visit Provider Internal Medicine | DX: J44.9 Chronic obstructive pulmonary disease, unspecified (principal); R05.9 Cough, unspecified; F17.210 Nicotine dependence, cigarettes, uncomplicated | CPT/HCPCS: 99212 ==

== ENCOUNTER 2022-05-09 11:06 | Outpatient (REF) | payer MEDICARE, MEDICAID, SELFPAY ==
[2022-05-09 13:59] LABS: MANUAL DIFF FLAG NO
[2022-05-09 14:06] LABS: Basophils Absolute Auto 0.1 X10*3/uL (0.0-0.2); Basophils Percent Auto 0.7 % (0-2); Eosinophils Absolute Auto 0.2 X10*3/uL (0.0-0.4); Eosinophils Percent Auto 1.7 % (0-4); Hematocrit 43.2 % (37.0-47.0); Hemoglobin 14.7 g/dl (12.0-16.0); Imm Gran Abs Auto 0.04 X10*3/uL (0.00-0.03); Imm Gran Pct Auto 0.3 % (0.0-0.4); Lymphocytes Absolute Auto 2.8 X10*3/uL (1.2-4.9); Lymphocytes Percent Auto 22.6 % (20-40); Mean Corpuscular Hemoglobin 32.5 pg (27.0-33.0); Mean Corpuscular Volume 95.6 fL (80.0-98.0); Mean Platelet Volume 10.6 fL (9.4-12.3); Monocytes Percent Auto 8.1 % (2-11); Neutrophils Absolute Auto 8.2 x10*3/uL (2.0-8.3); Neutrophils Percent Auto 66.6 % (45-73); Platelet Count 260 X10*3/uL (160-400); Red Blood Count 4.52 X10*6/uL (4.20-5.50); Red Cell Distribution Width 12.5 % (11.0-16.0); White Blood Count 12.3 X10*3/uL (4.8-10.8)
[2022-05-09 14:18] LABS: Estimated Average Glucose 120 mg/dL; Hemoglobin A1c % 5.8 %
[2022-05-09 14:26] LABS: Appearance Urine Cloudy; Color Urine Yellow; Glucose Urine UA Negative (Negative); Leukocyte Esterase Urine Large (3+) (Negative); Nitrite Urine Negative (Negative); UMIC TRIGGER UACC YES; Urine Blood Small (1+) (Negative); Urine Ketones Negative (Negative); Urine Protein Trace mg/dL (Neg-Trace)
[2022-05-09 14:41] LABS: Alanine Aminotransferase 43 U/L (0-31); Albumin Level 4.1 g/dL (3.5-5.0); Alkaline Phosphatase 46 U/L (39-117); Anion Gap 14 (12-20); Aspartate Amino Transferase 32 U/L (5-31); Bilirubin Total 0.4 mg/dL (0.0-1.0); Blood Urea Nitrogen 10 mg/dL (9-16); Calcium 9.3 mg/dL (8.4-10.2); Carbon Dioxide 28 mmol/L (22-29); Chloride 104 mmol/L (96-108); Cholesterol 152 mg/dL; Estimated Glomerular Filt Rate > 60; Glucose Fasting 111 mg/dL (60-99); HDL Cholesterol 49 mg/dL; LDL Cholesterol Calculated 76 mg/dl; Potassium 4.3 mmol/L (3.3-5.1); Sodium 142 mmol/L (135-145); Total Protein 6.9 g/dL (6.5-8.0); Triglycerides 138 mg/dL
[2022-05-09 14:46] LABS: TSH reflex Free T4 1.48 uIU/mL (0.32-4.0)
[2022-05-09 14:48] LABS: Bacteria Urine None Seen (None Seen); Hyaline Casts Urine 0-2 /LPF (0-2); Squamous Epithelial Cell Urine 0-2 /HPF (0-2); UACC Culture Trigger YES; WBC Urine >50 /HPF (0-5)
== END 2022-05-09 11:07 | disposition home or self-care (01) ==
LOC: HO.HMGCLDS 11:06
PROVIDERS: PCP Nurse Practitioner Family; Visit Provider Nurse Practitioner Family
DX: Z00.00 Encounter for general adult medical examination without abnormal findings (principal); E11.9 Type 2 diabetes mellitus without complications; R74.8 Abnormal levels of other serum enzymes
CPT/HCPCS: 36415; 80053; 80061; 81001; 81003; 83036; 84443; 85025; 87086

== ENCOUNTER 2022-05-16 08:58 | Outpatient (REF) | payer MEDICARE, MEDICAID, SELFPAY ==
--- NOTE | ~2022-05-16 | US_ITS ---
EXAMINATION: US ABDOMEN COMPLETE CLINICAL INFORMATION: Abnormal levels of other serum enzymes. COMPARISON: Ultrasound abdomen complete 08/04/2021. Ultrasound retroperitoneal complete (renal) 06/26/2019. TECHNIQUE: Real-time imaging of the abdominal viscera. FINDINGS: PANCREAS: Normal. ABDOMINAL AORTA: The proximal, mid, and distal segments are normal in caliber. INFERIOR VENA CAVA: Visualized portions are normal. LIVER: The liver is normal in size. The liver contour is normal. There is diffuse increased liver parenchymal echogenicity, consistent with hepatic steatosis. Similar findings can be appreciated on the 08/04/2021 abdominal ultrasound Focal fatty sparing is present adjacent to the gallbladder. No worrisome focal hepatic lesion. There is no intrahepatic biliary duct dilatation seen. GALLBLADDER: The gallbladder is physiologically distended without evidence of stones, sludge, polyps, wall thickening or pericholecystic fluid. COMMON BILE DUCT: Normal in caliber measuring 0.6 cm in diameter. RIGHT KIDNEY: Normal. No hydronephrosis. No renal calculi or focal parenchymal lesions. The kidney measures 10.0 cm in maximum dimension. LEFT KIDNEY: Normal. No hydronephrosis. No renal calculi or focal parenchymal lesions. The kidney measures 9.2 cm in maximum dimension. SPLEEN: Normal. The spleen measures 9.2 cm in maximum dimension. FREE FLUID: None. US/US abdomen complete IMPRESSION: Hepatic steatosis.
== END 2022-05-16 08:59 | disposition home or self-care (01) ==
LOC: HO.HMGCX 08:58
PROVIDERS: PCP Nurse Practitioner Family; Visit Provider Nurse Practitioner Family
DX: R74.8 Abnormal levels of other serum enzymes (principal)
CPT/HCPCS: 76700

== ENCOUNTER 2022-06-08 14:37 | Outpatient (REF) | payer MEDICARE, MEDICAID, SELFPAY ==
[2022-06-08 17:35] LABS: Appearance Urine Clear; Color Urine Yellow; Glucose Urine UA Negative (Negative); Leukocyte Esterase Urine Moderate (2+) (Negative); Nitrite Urine Negative (Negative); PH 5.5 (5.0-9.0); Specific Gravity - Urine <= 1.005 (1.005-1.025); UMIC TRIGGER UACC YES; Urine Blood Negative (Negative); Urine Ketones Negative (Negative); Urine Protein Negative (Neg-Trace)
[2022-06-08 17:54] LABS: Bacteria Urine None Seen (None Seen); Hyaline Casts Urine 0-2 /LPF (0-2); RBC Urine 0-2 /HPF (0-2); Squamous Epithelial Cell Urine 0-2 /HPF (0-2); UACC Culture Trigger YES
== END 2022-06-08 14:38 | disposition home or self-care (01) ==
LOC: HO.HMGCLDS 14:37
PROVIDERS: PCP Nurse Practitioner Family; Visit Provider Nurse Practitioner Family
DX: R10.9 Unspecified abdominal pain (principal); E11.9 Type 2 diabetes mellitus without complications
CPT/HCPCS: 81001; 81003; 87086

== ENCOUNTER 2022-06-10 13:36 | Outpatient (REF) | payer MEDICARE, MEDICAID, SELFPAY ==
[2022-06-11 10:44] LABS: Adenovirus F 40/41 Not Detected (Not Detect.); Astrovirus Not Detected (Not Detect.); Campylobacter Not Detected (Not Detect.); Cryptosporidium Not Detected (Not Detect.); Cyclospora cayetanensis Not Detected (Not Detect.); E. coli EAEC Not Detected (Not Detect.); E. coli EPEC Not Detected (Not Detect.); E. coli ETEC Not Detected (Not Detect.); E. coli STEC Not Detected (Not Detect.); Entamoeba histolytica Not Detected (Not Detect.); Giardia lamblia Not Detected (Not Detect.); Norovirus GI/GII Not Detected (Not Detect.); Plesiomonas shigelloides Not Detected (Not Detect.); Rotavirus A Not Detected (Not Detect.); Salmonella Not Detected (Not Detect.); Sapovirus Not Detected (Not Detect.); Shigella sp./EIEC Not Detected (Not Detect.); Vibrio Not Detected (Not Detect.); Vibrio Cholerae Not Detected (Not Detect.); Yersinia enterocolitica Not Detected (Not Detect.)
== END 2022-06-10 13:37 | disposition home or self-care (01) ==
LOC: HO.HMGCLNP 13:36
PROVIDERS: PCP Nurse Practitioner Family; Visit Provider Nurse Practitioner Family
DX: R19.7 Diarrhea, unspecified (principal)
CPT/HCPCS: 87507

== ENCOUNTER 2022-09-20 10:36 | Outpatient (REF) | payer MEDICARE, MEDICAID, SELFPAY ==
[2022-09-20 14:01] LABS: MANUAL DIFF FLAG NO
[2022-09-20 14:15] LABS: Basophils Absolute Auto 0.1 X10*3/uL (0.0-0.2); Basophils Percent Auto 0.9 % (0-2); Eosinophils Absolute Auto 0.2 X10*3/uL (0.0-0.4); Eosinophils Percent Auto 2.3 % (0-4); Hematocrit 43.1 % (37.0-47.0); Hemoglobin 14.2 g/dl (12.0-16.0); Imm Gran Abs Auto 0.04 X10*3/uL (0.00-0.03); Imm Gran Pct Auto 0.4 % (0.0-0.4); Lymphocytes Absolute Auto 2.8 X10*3/uL (1.2-4.9); Lymphocytes Percent Auto 28.9 % (20-40); Mean Corpuscular HGB Conc 32.9 g/dl (31.0-35.0); Mean Corpuscular Hemoglobin 32.4 pg (27.0-33.0); Mean Corpuscular Volume 98.4 fL (80.0-98.0); Mean Platelet Volume 11.5 fL (9.4-12.3); Monocytes Absolute Auto 0.7 X10*3/uL (0.1-1.2); Monocytes Percent Auto 7.4 % (2-11); Neutrophils Absolute Auto 5.7 x10*3/uL (2.0-8.3); Neutrophils Percent Auto 60.1 % (45-73); Platelet Count 246 X10*3/uL (160-400); Red Blood Count 4.38 X10*6/uL (4.20-5.50); Red Cell Distribution Width 11.9 % (11.0-16.0); White Blood Count 9.5 X10*3/uL (4.8-10.8)
[2022-09-20 14:20] LABS: Appearance Urine Clear; Color Urine Straw; Glucose Urine UA Negative (Negative); Leukocyte Esterase Urine Small (1+) (Negative); Nitrite Urine Negative (Negative); Specific Gravity - Urine <= 1.005 (1.005-1.025); UMIC TRIGGER UACC YES; Urine Blood Negative (Negative); Urine Ketones Negative (Negative); Urine Protein Negative (Neg-Trace)
[2022-09-20 14:26] LABS: Bacteria Urine None Seen (None Seen); Hyaline Casts Urine 0-2 /LPF (0-2); RBC Urine 0-2 /HPF (0-2); Squamous Epithelial Cell Urine 0-2 /HPF (0-2); UACC Culture Trigger YES; WBC Urine 0-5 /HPF (0-5)
[2022-09-20 14:27] LABS: Estimated Average Glucose 120 mg/dL; Hemoglobin A1C 151.1096 umol/L; Hemoglobin A1c % 5.8 %
[2022-09-20 14:31] LABS: Alanine Aminotransferase 26 U/L (0-31); Albumin Level 3.9 g/dL (3.5-5.0); Alkaline Phosphatase 52 U/L (39-117); Anion Gap 12 (12-20); Aspartate Amino Transferase 20 U/L (5-31); Bilirubin Total 0.4 mg/dL (0.0-1.0); Blood Urea Nitrogen 8 mg/dL (9-16); Calcium 9.8 mg/dL (8.4-10.2); Carbon Dioxide 28 mmol/L (22-29); Chloride 106 mmol/L (96-108); Cholesterol 127 mg/dL; Estimated Glomerular Filt Rate > 60; Glucose Fasting 107 mg/dL (60-99); HDL Cholesterol 47 mg/dL; LDL Cholesterol Calculated 56 mg/dl; Potassium 4.6 mmol/L (3.3-5.1); Sodium 141 mmol/L (135-145); Total Protein 6.7 g/dL (6.5-8.0); Triglycerides 120 mg/dL
[2022-09-20 14:47] LABS: TSH reflex Free T4 1.11 uIU/mL (0.32-4.0)
[2022-09-20 14:49] LABS: Creatinine Urine 20.34 mg/dL; Microalbumin Urine < 5.0 mg/L
== END 2022-09-20 10:37 | disposition home or self-care (01) ==
LOC: HO.HMGCLDS 10:36
PROVIDERS: PCP Nurse Practitioner Family; Visit Provider Nurse Practitioner Family
DX: E11.9 Type 2 diabetes mellitus without complications (principal); R82.90 Unspecified abnormal findings in urine
CPT/HCPCS: 36415; 80053; 80061; 81001; 82043; 83036; 84443; 85025; 87086

== ENCOUNTER 2022-11-17 10:33 | Outpatient (AMB) | payer MEDICARE, MEDICAID, SELFPAY ==
[2022-11-17 11:05] VITALS: BP 122/70; PULSE 56; O2SAT 96; BMI 32.9
--- NOTE | 2022-11-17 11:05 | A.OFFVIS_ITS ---
Intake Vital Signs 11/17/22 11:05 Height 5 ft 1 in Weight 174 lb BMI 32.9 BP 122/70 Blood Pressure Location Lt brachial Position Sitting Pulse 56 Pulse Oximetry (%) 96 Oxygen Delivery Method Room Air Intake Visit Reasons: COPD Intake Note: pt is here for follow up and states she has a cough that hurts her chest when it occurs, Electrical Unit Rebuilder Required: No Allergies aspirin [Aspirin] Allergy (Severe, Verified 11/17/22 11:23) ANAPHYLAXIS codeine [Codeine] Allergy (Intermediate, Verified 11/17/22 11:23) SHORTNESS OF BREATH, sob Penicillins Allergy (Intermediate, Verified 11/17/22 11:23) rash phenytoin Allergy (Intermediate, Verified 11/17/22 11:23) SHORTNESS OF BREATH,hives shrimp Allergy (Mild, Verified 11/17/22 11:23) ITCHY, anaphylaxis adhesive tape [ADHESIVE TAPE] Allergy (Unknown, Verified 11/17/22 11:23) RASH Medication List - Last Reconciled 11/17/22 by Cynthia Ga MD atorvastatin 40 mg PO DAILY 90 days cholecalciferol (vitamin D3) 25 mcg PO DAILY 90 days citalopram 40 mg PO DAILY 30 days clopidogrel 75 mg PO DAILY cyclobenzaprine 10 mg PO BEDTIME PRN 30 days famotidine 40 mg PO DAILY 90 days ferrous sulfate 325 mg PO DAILY folic acid 1 mg PO DAILY 90 days FreeStyle Niyah 2 [place] (flash glucose scanning reader) daily use NS FreeStyle Niyah 2 Sensor (flash glucose sensor) daily use NS gabapentin 600 mg PO TID 90 days lisinopril 2.5 mg PO DAILY 90 days lorazepam 1 mg PO BID PRN 30 days mecobalamin (vitamin B12) 1,000 mcg sublingual DAILY 90 days metoprolol tartrate 50 mg PO BID 90 days montelukast 10 mg PO DAILY 90 days trazodone 100 mg (2 x 50 mg) PO DAILY 30 days Do you need a note to return to daycare/school/sports/work: No HPI COPD HPI Details 67 YEARS OLD FEMALE A LONG-TIME PATIENT OF MINE, NOW COMES ABOUT EVERY 6 MONTHS FOR PULMONARY FOLLOW-UP. SHE IS A LIFETIME SMOKER AND HAS CUT DOWN TO ABOUT HALF PACK OF CIGARETTES A DAY. HER CHIEF COMPLAINT IS COUGH, WHICH IS INTERMITTENT. SHE WOULD NOT ADMIT THAT IT IS DUE TO SMOKING. SHE DOES BRING UP MINIMAL AMOUNT OF PHLEGM SOMETIMES. AND ALSO COMPLAINS OF DISCOMFORT IN THE CHEST WITH COUGH. IN THE PAST SHE USED TO BE ON COMBINATION OF LABA / ICS AGENTS, BUT SINCE LAST YEAR WE HAVE CUT IT DOWN TO ALBUTEROL ONLY P.R.N.. PFS Medical History Allergic rhinitis Asthma Cough CVA (cerebral vascular accident) Diabetes Dyslipidemia Esophageal stenosis Fatty liver Left sided sciatica Low vitamin B12 level Smoker TIA (transient ischemic attack) Vascular dementia Surgical History H/O arthroscopy H/O: hysterectomy History of removal of cyst Family History Father Cirrhosis Brain cancer Mother No problems noted. Social History Housing: House Patient Tobacco Use Status: Current everyday Tobacco user Tobacco use type: Cigarette Cigarette Packs Per Day: 0.5 Cigarettes Per Day: 8 Years Smoked: age 13 e-Cigarette/Vaping Use: Never Used Second Hand Smoke Exposure: No Current occupational status: retired and disabled Cognitive needs: No Hearing needs: No Vision needs: No Review of Systems Const All systems reviewed & are unremarkable except as noted in HPI and below Eyes Reports no additional complaints ENT Reports vertigo, Reports dizziness (Nonspecific off and on.) and Reports nasal congestion (Mild intermittent) Card Denies chest pain, Denies irregular heart rhythm and Denies leg edema Resp Reports as per HPI GI Reports heartburn (CONTROLLED WITH FAMOTIDINE) Reports no additional complaints Musc Reports no additional complaints Skin/Breast Reports system reviewed and no additional complaints, except as documented Neuro Reports vertigo and Reports dizziness (Nonspecific off and on.) Psych Reports no additional complaints and Reports anxiety (HAS TO USE LORAZEPAM 1 MG P.R.N..) Physical Exam Vital Signs: Last Vital Signs Pulse 56 11/17/22 11:05 BP 122/70 11/17/22 11:05 Pulse Ox 96 11/17/22 11:05 Oxygen Delivery Method Room Air 11/17/22 11:05 BMI result Body Mass Index 32.9 Const General: healthy appearing (Slightly pale looking), comfortable, no acute distress, alert and awake Orientation/consciousness: patient oriented x3 HEENT Head: Yes normal to inspection General nose exam: No nasal polyps present and No nasal discharge present Face and sinus: Yes sinuses nontender Mouth: oropharynx normal Throat: Yes posterior oropharynx normal Eyes General: appearance normal, both eyes and all related structures Neck Neck: Yes normal visual inspection, Yes no lymphadenopathy, Yes trachea midline and Yes no JVD Thyroid: Thyroid normal Chest Chest palpation & inspection: normal inspection of the chest, normal palpation of entire chest wall and no tenderness Resp Other: Percussion note is resonant, breath sounds are distant with prolonged expiratory phase but equal on both sides No wheezes rhonchi or Creps were heard. Cardio Palpation: normal PMI Rate: regular rate Rhythm: regular rhythm Heart sounds: no gallops and no murmurs GI Palpation (GI): Soft to palpation, nontender, No hepatosplenomegaly present and no masses Auscultation: normal bowel sounds Back/Spine/Pelvis Thoracic/Lumbar Spine: thoracic and lumbar spine normal to inspection and thoraco-lumbar ROM limited Skin General skin exam: no rashes or lesions noted Neuro General: patient oriented x3 and no focal motor deficits Cranial nerves: Yes CN's II-XII intact bilaterally Extrem General: Yes normal to inspection, Yes no clubbing, cyanosis or edema and Yes no calf tenderness Psych Appearance: grossly normal and well kempt Speech and movement: Normal speech and movement present Results Reviewed Results Reviewed: SPIROMETRY IN OFFICE , NORMAL. Assessment & Plan Assessment & Plan (1) Smoker: Comment: She has been a lifelong smoker, Currently down to 10 cigarettes a day, Have talked to her many times and she is not, going to stop completely. AGAIN COUNSELED TO QUIT SMOKING BUT , BE NO SHE IS NOT ABLE TO QUIT COMPLETELY. I ADVISED HER TO REDUCE THE NUMBER OF CIGARETTES TO 5 OR LESS . TALKED TO HER ABOUT AN WILL LUNG SCREENING PROGRAM. SHE IS AGREEABLE, AND THUS APPOINTMENT WILL BE MADE. Code(s): F17.200 - Nicotine dependence, unspecified, uncomplicated (2) Asthma: Comment: MILD , MOSTLY SEC TO BRONCHIAL IRRITATION , FROM SMOKING , WELL PSYCHOLOGICAL FACTORS . ADVISED TO USE , ALBUTEROL HFA, 2 PUFFS Q 4-6 HRS ONLY PRN , Code(s): J45.909 - Unspecified asthma, uncomplicated (3) COPD (chronic obstructive pulmonary disease): Comment: SHE HAS BEEN TREATED FOR MILD BRONCHIAL ASTHMA/COPD IN THE PAST. SPIROMETRY TODAY IS AGAIN NORMAL. TX : ADVISED TO USE ALBUTEROL HFA 2 PUFFS Q 6 HOURS ONLY P.R.N.. Code(s): J44.9 - Chronic obstructive pulmonary disease, unspecified (4) Allergic rhinitis: Comment: CHRONIC PERINEAL, ALLERGIC/VASOMOTOR RHINITIS, IT IS MILD SEEMS TO BE WELL CONTROLLED AT PRESENT. TX : MONTELUKAST 10 MG DAILY , AND OVER THE COUNTER ALLERGY AGENTS SUCH LORATADINE 10 MG P.R.N.. Code(s): J30.9 - Allergic rhinitis, unspecified Orders: Referrals Thoracic Surgery Referral F17.200 - Nicotine dependence, unspecified, uncomplicated, J44.9 - Chronic obstructive pulmonary disease, unspecified, J45.909 - Unspecified asthma, uncomplicated Coding Level of Care Code Est Pt Level 3 (53311) Diagnoses Smoker F17.200 Asthma J45.909 COPD (chronic obstructive pulmonary disease) J44.9 Allergic rhinitis J30.9
== END 2022-11-17 11:42 | disposition home or self-care (01) ==
PROVIDERS: PCP Nurse Practitioner Family; Visit Provider Internal Medicine
DX: F17.200 Nicotine dependence, unspecified, uncomplicated (principal); J44.9 Chronic obstructive pulmonary disease, unspecified; J30.9 Allergic rhinitis, unspecified
CPT/HCPCS: 99213

== ENCOUNTER → 2022-11-17 10:33 | Outpatient (BNVA) | payer MEDICARE, MEDICAID, SELFPAY | PROVIDERS: PCP Nurse Practitioner Family; Visit Provider Internal Medicine | DX: J44.9 Chronic obstructive pulmonary disease, unspecified (principal); J45.909 Unspecified asthma, uncomplicated; F17.210 Nicotine dependence, cigarettes, uncomplicated | CPT/HCPCS: 99212 ==

== ENCOUNTER 2023-06-08 13:33 | Outpatient (AMB) | payer MEDICARE, MEDICAID, SELFPAY ==
[2023-06-08 13:36] VITALS: BP 122/68; PULSE 61; O2SAT 96; BMI 32.8
--- NOTE | 2023-06-08 13:36 | MHC.PC.OV ---
Vital Signs 06/08/23 13:36 Height 5 ft 1 in Weight 173 lb 6 oz BMI 32.8 BP 122/68 Blood Pressure Location Lt brachial Position Sitting Pulse 61 Pulse Source Pulse Oximeter Pulse Oximetry (%) 96 Oxygen Delivery Method Room Air Intake Visit Reasons: Annual PE - see comments Intake Note: Pt is here for her Annual PE Allergies aspirin [Aspirin] Allergy (Severe, Verified 06/08/23 14:00) ANAPHYLAXIS codeine [Codeine] Allergy (Intermediate, Verified 06/08/23 14:00) SHORTNESS OF BREATH, sob Penicillins Allergy (Intermediate, Verified 06/08/23 14:00) rash phenytoin Allergy (Intermediate, Verified 06/08/23 14:00) SHORTNESS OF BREATH,hives shrimp Allergy (Mild, Verified 06/08/23 14:00) ITCHY, anaphylaxis adhesive tape [ADHESIVE TAPE] Allergy (Unknown, Verified 06/08/23 14:00) RASH Medication List - Last Reconciled 06/08/23 by BLAKE Cole atorvastatin 40 mg PO DAILY 90 days cholecalciferol (vitamin D3) 25 mcg PO DAILY 90 days citalopram 40 mg PO DAILY clopidogrel 75 mg PO DAILY cyclobenzaprine 10 mg PO BEDTIME PRN 30 days famotidine 40 mg PO DAILY 90 days ferrous sulfate 325 mg PO DAILY folic acid 1 mg PO DAILY 90 days FreeStyle Niyah 2 [place] (flash glucose scanning reader) daily use NS FreeStyle Niyah 2 Sensor (flash glucose sensor) daily use NS gabapentin 600 mg PO TID 90 days lisinopril 2.5 mg PO DAILY 90 days lorazepam 1 mg PO BID PRN 30 days mecobalamin (vitamin B12) 1,000 mcg sublingual DAILY 90 days metoprolol tartrate 50 mg PO BID 90 days montelukast 10 mg PO DAILY 90 days trazodone 100 mg (2 x 50 mg) PO DAILY 30 days Tobacco use date assessed: 06/08/23 Fall risk assessment: No Falls in past year Last assessed Fall Risk: 06/08/23 Dental Screening Dental Screen Date: 06/08/23 Did you have a dental visit in the last 12 months?: No Did you have a dental problem in the last 6 months where you did not have access to dental care?: No Was dental information given to patient?: Patient has dentist HPI Annual PE - see comments HPI Details Pt is here for a PE. Will order labs. Colon screen is up to date. Due for mammo, pt reports that she has not had one in years, will order. Pt is a diabetic, on an VALENTINE and a statin. Due for A1C, will order. Microalbumin is up to date. Denies polyuria, polydipsia, and neuropathy. Pt denies any signs and symptoms of hypoglycemia and does know how to correct it. Pt checks her blood sugar intermittently. Pt has been a PPD smoker since age 13. Will refer to thoracic for low-dose lung CT. Pt follows up with pulmonology. Pt will schedule her own eye exam. Hx of B12 deficiency, will order labs. [facility] Medical History Fatty liver Allergic rhinitis Asthma Cough Smoker Left sided sciatica Vascular dementia Dyslipidemia TIA (transient ischemic attack) Low vitamin B12 level Esophageal stenosis Diabetes CVA (cerebral vascular accident) Surgical History History of removal of cyst H/O arthroscopy H/O: hysterectomy Family History Father Cirrhosis Brain cancer Mother No problems noted. Social History Housing: House Patient Tobacco Use Status: Current everyday Tobacco user Tobacco use type: Cigarette Cigarette Packs Per Day: 0.5 Cigarettes Per Day: 5 Years Smoked: age 13 e-Cigarette/Vaping Use: Never Used Second Hand Smoke Exposure: No Current occupational status: retired and disabled Cognitive needs: No Hearing needs: No Vision needs: No Questionnaire PHQ-9 Over the last 2 weeks, how often have you been bothered by any of the following problems? 1. Little interest or pleasure in doing things: nearly every day 2. Feeling down, depressed, or hopeless: not at all 3. Trouble falling or staying asleep, or sleeping too much: several days 4. Feeling tired or having little energy: more than half the days 5. Poor appetite or overeating: nearly every day 6. Feeling bad about yourself - or that you are a failure or have let yourself or your family down: not at all 7. Trouble concentrating on things, such as reading the newspaper or watching television: not at all 8. Moving or speaking so slowly that other people could have noticed. Or the opposite - being so fidgety or restless that you have been moving around a lot more than usual: not at all 9. Thoughts that you would be better off or of hurting yourself in some way: not at all Total score: 9 Depression Screening Interpretation: Positive (has psychiatrist/therapist) Depression Screening Follow-up: Existing condition and In treatment Depression Screening Done: Yes 45729 - PHQ-9 Billing: Yes Source: Developed by Drs. Jaime Rodriguez, Brittani Wing, Raj Del Rosario and colleagues, with an educational ender from [employer]. Thrive Questionnaire Date Thrive assessed: 06/08/23 I am a: Patient What is your living situation today?: I have a steady place to live Within the past 12 months, did the food you bought not last and you didn't have the money to get more?: Sometimes True Within the past 12 months, did you worry whether your food would run out before you got money to buy more?: Sometimes True Do you have trouble paying for medicines?: No Do you have trouble getting transportation to medical appointments?: No Do you have trouble paying your heating and electricity bill?: No Do you have trouble taking care of your child, family member or friend?: No Do you have trouble with day-to-day activities such as bathing, preparing meals, shopping, managing finances, etc.?: Yes Are you currently unemployed and looking for a job?: No Are you interested in more education?: No THRIVE Score: 2 AUDIT C Alcohol Use Questionnaire (AUDIT-C) 1. How often do you have a drink containing alcohol?: Never Total Score: 0 Score Reviewed/Action Taken: Yes SHENA-7 AMB Questionnaire SHENA-7 Date SHENA - 7 assessed: 06/08/23 Source: Developed by Drs. Jaime Rodriguez, Brittani Wing, Raj Del Rosario and colleagues, with an educational ender from [employer]. SHENA-7 Assessment Billing SHENA-7 Assessment Tool: pt declined-do not bill Review of Systems Const Denies chills and Denies fever(s) Eyes Denies blurry vision ENT Denies vertigo, Denies dizziness and Denies sore throat Card Denies chest pain at rest, Denies chest pain with activity, Denies diaphoresis, Denies dyspnea and Denies dyspnea on exertion Resp Denies cough, Denies dyspnea, Denies dyspnea on exertion and Denies wheezing GI Denies abdominal pain, Denies melena, Denies hematochezia, Denies constipation, Denies diarrhea and Denies loose stools Denies hematuria Musc Denies numbness and Denies tingling Skin/Breast Denies lesions Neuro Denies vertigo, Denies dizziness, Denies numbness and Denies tingling Psych Denies anxiety, Denies depression, Denies homicidal ideation, Denies suicidal ideation and Denies other (substance abuse) Aller/Immun Denies wheezing Physical exam (Primary Care) Vital Signs: Last Vital Signs Pulse 61 06/08/23 13:36 BP 122/68 06/08/23 13:36 Pulse Ox 96 06/08/23 13:36 Oxygen Delivery Method Room Air 06/08/23 13:36 BMI result Body Mass Index 32.8 Tobacco/Smoking Status: Tobacco use Status Tobacco use date assessed 06/08/23 06/08/23 13:44 Patient Tobacco Use Status Current everyday Tobacco 06/08/23 13:44 Tobacco use type Cigarette 06/08/23 13:44 e-Cigarette/Vaping Use Never Used 06/08/23 13:44 Depression Screening Interpretation: Positive (has psychiatrist/therapist) Depression Screening Follow-up: Existing condition and In treatment Thrive Assessment: Date of Thrive Assessment Date Thrive assessed 07/13/21 06/08/23 13:44 Const General: cooperative Nutritional Appearance: obese Orientation/consciousness: patient oriented x3 HENMT Head: Yes normal to inspection, Yes normocephalic and Yes atraumatic Ears: TM's normal bilaterally Eyes General: appearance normal, both eyes and all related structures Alignment and Position: alignment normal and position normal Neck Neck: Yes normal visual inspection and Yes no lymphadenopathy Thyroid: Thyroid normal Resp Effort & Inspection: normal respiratory effort Auscultation: clear to auscultation bilaterally Cardio Rate: regular rate Rhythm: regular rhythm Heart sounds: S1 normal heart sound present, S2 normal heart sound present and no murmurs GI Palpation (GI): Soft to palpation and nontender Auscultation: normal bowel sounds Skin Rashes: no rashes Neuro General: patient oriented x3, moves all extremities, no focal motor deficits and deep tendon reflexes 2+ bilaterally Romberg Test: Negative Extrem Other: bilat feet: + sensation with use of monofilament, feet intact Psych Appearance: grossly normal Mental Status: mental status grossly normal Speech and movement: Normal speech and movement present Affect: normal affect Attitude: cooperative Thought process: Normal thought process present Thought content: Normal thought content present Insight: Good insight present (Psych) Judgement: Good judgement present (Psych) Assessment and Plan Assessment & Plan (1) Diabetes: Code(s): E11.9 - Type 2 diabetes mellitus without complications Plan: Labs ordered (2) Physical exam: Code(s): Z00.00 - Encounter for general adult medical examination without abnormal findings Plan: Labs ordered (3) B12 deficiency: Code(s): E53.8 - Deficiency of other specified B group vitamins Plan: Labs ordered (4) Smoker: Code(s): F17.200 - Nicotine dependence, unspecified, uncomplicated Plan: Referred to thoracic Plan The patient agreed to the use of a senior medical transcriptionist for this encounter. Scribed for LARRY Acuna- by Ana Chan senior medical transcriptionist, on 06/08/2023 at 13:50 EST. Orders: Orders Complete Blood Count Auto Diff Today E11.9 - Type 2 diabetes mellitus without complications, Z00.00 - Encounter for general adult medical examination without abnormal findings UA CC w/rflx Micro + Cult Today E11.9 - Type 2 diabetes mellitus without complications, Z00.00 - Encounter for general adult medical examination without abnormal findings Hemoglobin A1c Today E11.9 - Type 2 diabetes mellitus without complications, Z00.00 - Encounter for general adult medical examination without abnormal findings Microalbumin, Random (w Creat) Today E11.9 - Type 2 diabetes mellitus without complications, Z00.00 - Encounter for general adult medical examination without abnormal findings Comprehensive [place]. Panel Fast Today E11.9 - Type 2 diabetes mellitus without complications, Z00.00 - Encounter for general adult medical examination without abnormal findings TSH reflex Free T4 Today E11.9 - Type 2 diabetes mellitus without complications, Z00.00 - Encounter for general adult medical examination without abnormal findings Lipid Panel Today E11.9 - Type 2 diabetes mellitus without complications, Z00.00 - Encounter for general adult medical examination without abnormal findings Vitamin B12 and Folate Today E53.8 - Deficiency of other specified B group vitamins MM screening mammo BI Today Z12.31 - Encounter for screening mammogram for malignant neoplasm of breast Referrals Thoracic Surgery Referral F17.200 - Nicotine dependence, unspecified, uncomplicated Medications: Refilled FreeStyle Niyah 2 [place] (flash glucose scanning reader) daily use 1 ea 2RF NS E11.9 - Type 2 diabetes mellitus without complications FreeStyle Niyah 2 Sensor (flash glucose sensor) daily use 1 ea 2RF NS E11.9 - Type 2 diabetes mellitus without complications Coding Level of Care Code Est Pt Prev Care >65y(08709) Diagnoses Diabetes E11.9 Physical exam Z00.00 B12 deficiency E53.8 Smoker F17.200
== END 2023-06-08 14:05 | disposition home or self-care (01) ==
PROVIDERS: PCP Nurse Practitioner Family; Visit Provider Nurse Practitioner Family
DX: E11.9 Type 2 diabetes mellitus without complications (principal); Z00.00 Encounter for general adult medical examination without abnormal findings; E53.8 Deficiency of other specified B group vitamins; F17.200 Nicotine dependence, unspecified, uncomplicated
CPT/HCPCS: 99397

== ENCOUNTER 2023-06-27 09:01 | Outpatient (REF) | payer MEDICARE, MEDICAID, SELFPAY ==
--- NOTE | ~2023-06-27 | MM_ITS ---
EXAMINATION: MM SCREENING DIGITAL BREAST TOMOSYNTHESIS, BILATERAL CLINICAL INFORMATION: Screening. Asymptomatic. COMPARISON: Mammography: 12/13/2019, 01/14/2015, 11/15/2013, 09/07/2012 TECHNIQUE: Digital breast tomosynthesis is performed in both the craniocaudal and mediolateral oblique views along with computer-aided detection (CAD). Synthesized 2D images are generated from the tomosynthesis. FINDINGS: There are scattered areas of fibroglandular density (ACR BI-RADS breast composition Category b). There are no suspicious masses, suspicious grouped calcifications, or areas of architectural distortion in either breast. The parenchymal pattern is stable from prior exams. MM/MM tomosynthesis screening BI IMPRESSION: No mammographic evidence of malignancy. ASSESSMENT: BI-RADS BI-RADS 1 - Negative RECOMMENDATION: Routine annual mammography screening. 1 year F/U This examination should not preclude the clinical evaluation of a suspicious palpable abnormality. This patient's information was entered into a reminder system with a target due date for their next mammogram.
== END 2023-06-27 09:02 | disposition home or self-care (01) ==
LOC: HO.MAMMO 09:01
PROVIDERS: PCP Nurse Practitioner Family; Visit Provider Nurse Practitioner Family
DX: Z12.31 Encounter for screening mammogram for malignant neoplasm of breast (principal)
CPT/HCPCS: 77063; 77067

== ENCOUNTER → 2023-06-27 09:15 | Outpatient (BNV) | payer MEDICARE, MEDICAID, SELFPAY | PROVIDERS: PCP Nurse Practitioner Family; Visit Provider Radiology Diagnostic Radiology | DX: Z12.31 Encounter for screening mammogram for malignant neoplasm of breast (principal) | CPT/HCPCS: 77063; 77067 ==

== ENCOUNTER 2023-08-11 10:07 | Outpatient (AMB) | payer MEDICARE, MEDICAID, SELFPAY ==
--- NOTE | 2023-08-11 07:49 | A.OFFVIS_ITS ---
Intake Visit Reasons: Current Smoker Allergies aspirin [Aspirin] Allergy (Severe, Verified 06/08/23 14:00) ANAPHYLAXIS codeine [Codeine] Allergy (Intermediate, Verified 06/08/23 14:00) SHORTNESS OF BREATH, sob Penicillins Allergy (Intermediate, Verified 06/08/23 14:00) rash phenytoin Allergy (Intermediate, Verified 06/08/23 14:00) SHORTNESS OF BREATH,hives shrimp Allergy (Mild, Verified 06/08/23 14:00) ITCHY, anaphylaxis adhesive tape [ADHESIVE TAPE] Allergy (Unknown, Verified 06/08/23 14:00) RASH HPI HPI Current Smoker: Details: Initial visit for this 67yo smoker with a 40PYH. Patient has been smoking since age 13 for 54 years at 1ppd. Currently down to 1/4ppd. . Denies marijuana use. Denies second hand smoke exposure. Denies exposure to chemicals or substances like asbestos. . Denies known family history of lung cancer. Denies personal history of cancers. Denies chest CT in last year. . Denies recent travel outside the [place]. Denies recent respiratory illness or recent hospitalization for respiratory issues. Denies testing positive for COVID. Admits receiving COVID Vaccine. x 4. . Denies fever, chills, new/worsening cough, hemoptysis, hoarseness or dysphagia. Denies significant chest pain, significant dyspnea or unintentional weight loss. Patient Lung Cancer Screening Questionnaire reviewed with patient by provider. . Shared Decision Making Completed. Patient meets criteria. Discussed in detail with patient, the risk vs benefit of LDCT screening. Patient consents to proceed with scan. Discussed smoking cessation. [facility] Medical History (Updated 08/11/23 @ 10:18 by Nohelia Hernandez PA-C) History of TIA (transient ischemic attack) Vascular dementia Diabetes Dyslipidemia Fatty liver COPD (chronic obstructive pulmonary disease) Asthma Nicotine dependence, cigarettes, uncomplicated Allergic rhinitis Cough Esophageal stenosis B12 deficiency Left sided sciatica Surgical History (Updated 08/07/23 @ 15:39 by Nohelia Hernandez PA-C) History of Estevan fundoplication History of appendectomy History of hysterectomy History of esophagogastroduodenoscopy (EGD) History of colonoscopy History of arthroscopic knee surgery History of removal of cyst Family History Father Cirrhosis Brain cancer Mother No problems noted. Social History (Updated 08/11/23 @ 10:19 by Nohelia Hernandez PA-C) Housing: House Patient Tobacco Use Status: Current everyday Tobacco user Tobacco use type: Cigarette Cigarette Packs Per Day: 0.5 Cigarettes Per Day: 5 Years Smoked: (onset 13yo, 1ppd x 54yrs, now 1/4ppd, 40PYH) e-Cigarette/Vaping Use: Never Used Second Hand Smoke Exposure: No Current occupational status: retired and disabled Cognitive needs: No Hearing needs: No Vision needs: No Assessment & Plan Assessment & Plan (1) Nicotine dependence, cigarettes, uncomplicated: Comment: (smoker - onset 13yo, 1ppd x 54yrs, now 1/4ppd, 40PYH) Code(s): F17.210 - Nicotine dependence, cigarettes, uncomplicated Category: Medical Plan: - SDM visit completed today in office. - Patient meets criteria for LDCT for lung cancer screening purposes and is asymptomatic. - Smoking cessation counseling offered. Patients can always call [phone]. - Will arrange for a LDCT scan of the chest for screening purposes at [facility]. - Risks, benefits, and alternatives were discussed in detail and the patient agrees to proceed. - Risks discussed include but are not limited to: radiation exposure, anxiety during testing and while awaiting results, false negatives, false positives and possibility of additional intervention such as further imaging or surgical procedures for benign disease. - Benefits are obviously detection of lung cancer at an early stage which can lead to improved outcomes. - Discussed the importance of screening program compliance with adherence to yearly LDCT scan as scheduled - or sooner interval scans for personalized screening regimen. - Discussed follow up plan. Our office will send a letter discussing results and if needed set up phone call and office visit based on CT findings. - Patient educated on results categorization and the management decisions for suspicious findings potentially found on the screening LDCT scan. Any patient with a Lung RADS score of 3 or 4 will be reviewed by a multidisciplinary team at [facility] to form a plan of action in regards to scan findings. - If further work up is warranted for a suspicious lung finding this will be followed by the Lung Cancer Screening program in conjunction with the Thoracic Surgery Department at [facility]. - A copy of the office note and LDCT will be sent to the patient's PCP - as well as documentation on any associated further plans of care. - Incidental findings on LDCT are the PCP's responsibility. These findings are indicated with an S finding on the LDCT Assessment. A note discussing the findings will be sent to the PCP who is then responsible for further management. - All questions answered.? Coding Level of Care Code Lung Cancer Screening G0296 Diagnoses Nicotine dependence, cigarettes, uncomplicated F17.210
== END 2023-08-11 10:29 | disposition home or self-care (01) ==
PROVIDERS: PCP Nurse Practitioner Family; Referring Provider Nurse Practitioner Family; Visit Provider Physician Assistant Medical
DX: F17.210 Nicotine dependence, cigarettes, uncomplicated (principal)
CPT/HCPCS: G0296

== ENCOUNTER 2023-08-11 10:26 | Outpatient (REF) | payer MEDICARE, MEDICAID, SELFPAY ==
--- NOTE | ~2023-08-11 | CT_ITS ---
EXAMINATION: CT CHEST SCREENING CLINICAL INFORMATION: Nicotine dependence, cigarettes, uncomplicated. The patient is a current smoker with a 54 pack-year history of smoking. COMPARISON: X-ray chest 08/15/2016. TECHNIQUE: Multidetector volumetric CT imaging of the chest is performed on a Siemens SOMATOM Definition scanner without contrast using low-dose technique. Additional 2D coronal and sagittal reformatted images and axial 3D maximum intensity projection (MIP) images are generated on the CT workstation. This CT examination was performed using dose optimization techniques as appropriate, variously including the following: *Automated exposure control *Adjustment of mA and/or kV according to patient size (this includes techniques or standardized protocols for targeted exams where dose is matched to indication/reason for exam; i.e. extremities or head) *Use of iterative reconstruction technique DLP: 49 mGy-cm FINDINGS: LUNGS: Some mild bronchial thickening is present. There is a small 3 mm perifissural nodule in the right lower lobe (5:202). Calcified granuloma is seen in the left upper lobe (5:163). The lungs are otherwise clear with no evidence of inflammation or worrisome nodules. MEDIASTINUM: The mediastinum is normal. CORONARY ARTERY CALCIFICATION: Minimal. PLEURA: There is no pleural effusion. No pleural mass or thickening. AXILLA: No lymphadenopathy. UPPER ABDOMEN: There is hepatic steatosis. Fatty infiltration of the pancreas is noted. OSSEOUS STRUCTURES: Unremarkable. CT/CT lung screening IMPRESSION: No findings suggestive of malignancy. ASSESSMENT: Lung-RADS category 2: Benign. RECOMMENDATION: Routine annual low-dose CT screening in 12 months.
== END 2023-08-11 10:27 | disposition home or self-care (01) ==
LOC: HO.CT 10:26
PROVIDERS: PCP Nurse Practitioner Family; Visit Provider Physician Assistant Medical
DX: Z12.2 Encounter for screening for malignant neoplasm of respiratory organs (principal); F17.210 Nicotine dependence, cigarettes, uncomplicated
CPT/HCPCS: 71271; G0296

== ENCOUNTER 2023-08-24 14:07 | Outpatient (AMB) | payer MEDICARE, MEDICAID, SELFPAY ==
--- NOTE | 2023-08-24 14:35 | A.OFFPC_ITS ---
Vital Signs 08/24/23 14:37 Height 5 ft 1 in Weight 177 lb BMI 33.4 BP 110/70 Blood Pressure Location Lt brachial Position Sitting Pulse 64 Pulse Source Pulse Oximeter Pulse Oximetry (%) 94 Oxygen Delivery Method Room Air Intake Visit Reasons: 08/29 replace battery spinal cord stimulator (NEOS) Intake Note: Patient here for preop clearance. EKG, CBC, BMP Allergies aspirin [Aspirin] Allergy (Severe, Verified 08/24/23 16:58) ANAPHYLAXIS codeine [Codeine] Allergy (Intermediate, Verified 08/24/23 16:58) SHORTNESS OF BREATH, sob Penicillins Allergy (Intermediate, Verified 08/24/23 16:58) rash phenytoin Allergy (Intermediate, Verified 08/24/23 16:58) SHORTNESS OF BREATH,hives shrimp Allergy (Mild, Verified 08/24/23 16:58) ITCHY, anaphylaxis adhesive tape [ADHESIVE TAPE] Allergy (Unknown, Verified 08/24/23 16:58) RASH Medication List - Last Reconciled 08/24/23 by PORTIA Cole atorvastatin 40 mg PO DAILY 90 days cholecalciferol (vitamin D3) 25 mcg PO DAILY 90 days citalopram 40 mg PO DAILY clopidogrel 75 mg PO DAILY cyclobenzaprine 10 mg PO BEDTIME PRN 30 days famotidine 40 mg PO DAILY 90 days ferrous sulfate 325 mg PO DAILY folic acid 1 mg PO DAILY 90 days FreeStyle Niyah 2 [place]rett (flash glucose scanning reader) daily use NS FreeStyle Niyah 2 Sensor (flash glucose sensor) daily use NS gabapentin 600 mg PO TID 90 days lisinopril 2.5 mg PO DAILY 90 days lorazepam 1 mg PO BID PRN 30 days mecobalamin (vitamin B12) 1,000 mcg sublingual DAILY 90 days metoprolol tartrate 50 mg PO BID 90 days montelukast 10 mg PO DAILY 90 days trazodone 100 mg (2 x 50 mg) PO DAILY 30 days Tobacco use date assessed: 06/08/23 Fall risk assessment: No Falls in past year Last assessed Fall Risk: 08/24/23 Dental Screening Dental Screen Date: 06/08/23 HPI 08/29 replace battery spinal cord stimulator (NEOS) HPI Details Pt is here for a pre-op evaluation. She is scheduled to have the battery replaced in her spinal cord stimulator on 08/29. EKG done in office. Will order labs. [facility] Medical History (Updated 08/24/23 @ 15:10 by LARRY ColeJAY) Post laminectomy syndrome History of TIA (transient ischemic attack) Vascular dementia Diabetes Dyslipidemia Fatty liver COPD (chronic obstructive pulmonary disease) Asthma Nicotine dependence, cigarettes, uncomplicated Allergic rhinitis Cough Esophageal stenosis B12 deficiency Left sided sciatica Surgical History (Updated 08/21/23 @ 17:22 by LARRY ColeJAY) S/P insertion of spinal cord stimulator History of Estevan fundoplication History of appendectomy History of hysterectomy History of esophagogastroduodenoscopy (EGD) History of colonoscopy History of arthroscopic knee surgery History of removal of cyst Family History Father Cirrhosis Brain cancer Mother No problems noted. Social History Housing: House Patient Tobacco Use Status: Current everyday Tobacco user Tobacco use type: Cigarette Cigarette Packs Per Day: 0.5 Cigarettes Per Day: 5 Years Smoked: (onset 13yo, 1ppd x 54yrs, now 1/4ppd, 40PYH) e-Cigarette/Vaping Use: Never Used Second Hand Smoke Exposure: No Current occupational status: retired and disabled Cognitive needs: No Hearing needs: No Vision needs: No Questionnaire Thrive Questionnaire Date Thrive assessed: 06/08/23 SHENA-7 AMB Questionnaire SHENA-7 Date SHENA - 7 assessed: 06/08/23 Source: Developed by Drs. Jaime Rodriguez, Brittani Wing, Raj Del Rosario and colleagues, with an educational ender from [employer]. Review of Systems Const Denies chills and Denies fever(s) Eyes Denies blurry vision ENT Denies vertigo, Denies dizziness and Denies sore throat Card Denies chest pain at rest, Denies chest pain with activity, Denies diaphoresis, Denies dyspnea and Denies dyspnea on exertion Resp Denies cough, Denies dyspnea, Denies dyspnea on exertion and Denies wheezing GI Denies abdominal pain, Denies melena, Denies hematochezia, Denies constipation, Denies diarrhea and Denies loose stools Denies hematuria Musc Denies numbness and Denies tingling Skin/Breast Denies lesions Neuro Denies vertigo, Denies dizziness, Denies numbness and Denies tingling Psych Denies anxiety, Denies depression, Denies homicidal ideation, Denies suicidal ideation and Denies other (substance abuse) Aller/Immun Denies wheezing Physical exam (Primary Care) Vital Signs: Last Vital Signs Pulse 64 08/24/23 14:37 BP 110/70 08/24/23 14:37 Pulse Ox 94 08/24/23 14:37 Oxygen Delivery Method Room Air 08/24/23 14:37 BMI result Body Mass Index 33.4 Tobacco/Smoking Status: Tobacco use Status Tobacco use date assessed 06/08/23 08/24/23 14:36 Patient Tobacco Use Status Current everyday Tobacco 08/24/23 14:36 Tobacco use type Cigarette 08/24/23 14:36 e-Cigarette/Vaping Use Never Used 08/24/23 14:36 Thrive Assessment: Date of Thrive Assessment Date Thrive assessed 06/08/23 08/24/23 14:36 Const General: cooperative Nutritional Appearance: well nourished Orientation/consciousness: patient oriented x3 Neck Neck: Yes normal visual inspection and Yes no lymphadenopathy Resp Other: lungs fairly clear, slightly diminished Effort & Inspection: normal respiratory effort Cardio Rate: regular rate Rhythm: regular rhythm Heart sounds: S1 normal heart sound present, S2 normal heart sound present and no murmurs Neuro General: patient oriented x3 Psych Appearance: grossly normal Mental Status: mental status grossly normal Speech and movement: Normal speech and movement present Affect: normal affect Attitude: cooperative Thought process: Normal thought process present Thought content: Normal thought content present Insight: Good insight present (Psych) Judgement: Good judgement present (Psych) Assessment and Plan Assessment & Plan (1) Pre-op evaluation: Code(s): Z01.818 - Encounter for other preprocedural examination Plan The patient agreed to the use of a biomedical engineering supervisor for this encounter. Scribed for BLAKE Acuna by Ana Chan biomedical engineering supervisor, on 08/24/2023 at 15:10 EST. Orders: Orders Complete Blood Count Auto Diff Today Z01.818 - Encounter for other preprocedural examination Comprehensive Met. Panel Today Z01.818 - Encounter for other preprocedural examination TSH reflex Free T4 Today Z01.818 - Encounter for other preprocedural examination UA CC w/rflx Micro + Cult Today Z01.818 - Encounter for other preprocedural examination Coding Level of Care Code Est Pt Prev Care >65y(72573) Diagnoses Pre-op evaluation Z01.818
[2023-08-24 14:37] VITALS: BP 110/70; PULSE 64; O2SAT 94; BMI 33.4
== END 2023-08-24 16:19 | disposition home or self-care (01) ==
PROVIDERS: PCP Nurse Practitioner Family; Visit Provider Nurse Practitioner Family
DX: Z01.818 Encounter for other preprocedural examination (principal)
CPT/HCPCS: 93000; 99213

== ENCOUNTER 2023-08-24 15:14 | Outpatient (REF) | payer MEDICARE, MEDICAID, SELFPAY ==
[2023-08-24 16:15] LABS: MANUAL DIFF FLAG NO
[2023-08-24 16:25] LABS: Basophils Absolute Auto 0.1 X10*3/uL (0.0-0.2); Basophils Percent Auto 0.7 % (0-2); Eosinophils Absolute Auto 0.3 X10*3/uL (0.0-0.4); Eosinophils Percent Auto 2.5 % (0-4); Hematocrit 42.5 % (37.0-47.0); Hemoglobin 14.3 g/dl (12.0-16.0); Imm Gran Abs Auto 0.04 X10*3/uL (0.00-0.03); Imm Gran Pct Auto 0.4 % (0.0-0.4); Lymphocytes Absolute Auto 3.1 X10*3/uL (1.2-4.9); Lymphocytes Percent Auto 31.5 % (20-40); Mean Corpuscular HGB Conc 33.6 g/dl (31.0-35.0); Mean Corpuscular Hemoglobin 32.1 pg (27.0-33.0); Mean Corpuscular Volume 95.5 fL (80.0-98.0); Monocytes Absolute Auto 0.8 X10*3/uL (0.1-1.2); Monocytes Percent Auto 8.2 % (2-11); Neutrophils Absolute Auto 5.6 x10*3/uL (2.0-8.3); Neutrophils Percent Auto 56.7 % (45-73); Platelet Count 242 X10*3/uL (160-400); Red Blood Count 4.45 X10*6/uL (4.20-5.50); Red Cell Distribution Width 12.7 % (11.0-16.0); White Blood Count 9.9 X10*3/uL (4.8-10.8)
[2023-08-24 16:32] LABS: Appearance Urine Clear; Color Urine Yellow; Glucose Urine UA Negative (Negative); Leukocyte Esterase Urine Moderate (2+) (Negative); Nitrite Urine Negative (Negative); PH 5.5 (5.0-9.0); Specific Gravity - Urine 1.015 (1.005-1.025); UMIC TRIGGER UACC YES; Urine Blood Negative (Negative); Urine Ketones Negative (Negative); Urine Protein Negative (Neg-Trace)
[2023-08-24 16:44] LABS: Bacteria Urine None Seen (None Seen); Hyaline Casts Urine 0-2 /LPF (0-2); RBC Urine 0-2 /HPF (0-2); Squamous Epithelial Cell Urine 0-2 /HPF (0-2); UACC Culture Trigger YES
[2023-08-24 18:43] LABS: Alanine Aminotransferase 46 U/L (0-31); Alkaline Phosphatase 54 U/L (39-117); Anion Gap 15 (12-20); Aspartate Amino Transferase 33 U/L (5-31); Bilirubin Total 0.2 mg/dL (0.0-1.0); Blood Urea Nitrogen 8 mg/dL (9-16); Carbon Dioxide 26 mmol/L (22-29); Chloride 104 mmol/L (96-108); Estimated Glomerular Filt Rate 55; Glucose Random 131 mg/dL (60-115); Potassium 3.7 mmol/L (3.3-5.1); Sodium 141 mmol/L (135-145); Total Protein 7.3 g/dL (6.5-8.0)
[2023-08-24 18:59] LABS: TSH reflex Free T4 0.89 uIU/mL (0.32-4.0)
== END 2023-08-24 15:15 | disposition home or self-care (01) ==
LOC: HO.HMGCLDS 15:14
PROVIDERS: PCP Nurse Practitioner Family; Visit Provider Nurse Practitioner Family
DX: Z01.818 Encounter for other preprocedural examination (principal); R82.90 Unspecified abnormal findings in urine
CPT/HCPCS: 36415; 80053; 81001; 81003; 84443; 85025; 87086

== ENCOUNTER 2023-08-30 13:57 | Outpatient (AMB) | payer MEDICARE, MEDICAID, SELFPAY ==
--- OUTSIDE RECORDS SUMMARY | 2023-08-30 13:58 | XMS_ITS | Continuity of Care Document ---
Author Organization [facility] Address [address] [place] [address]- Care Team Providers Care Hot Pond Operator Name Role Phone Cynthia Ga Primary Care Physician [facility] [id number] Date(s): 08/18/23 - 08/25/23 [facility] [address] [place], [place] [address] Attending Physician: Driss Mitchell DO Referring Physician: Paola Manzanares MD Allergies, Adverse Reactions, Alerts Substance Reaction Severity Status codeine throat closes Active aspirin throat closes Active penicillins unknown Active Dilantin itching Active Shrimp throat closes,itching Acti ve Medications atorvastatin 40 mg oral tablet 1 tablet = 40 mg, By Mouth, Daily, # 30 tablet, 1 Refills, Maintenance, Tablet, Print Requisition Start Date: 08/18/16 Status: Ordered Calcium 600 +D oral tablet 1 tablet, By Mouth, Daily, 0 Refills, Maintenance, 12/23/13 8:41:09 Start Date: 12/23/13 Status: Ordered citalopram 20 mg oral tablet 1 tablet = 20 mg, By Mouth, 2 times a day, 0 Refills, Maintenance, 12/23/13 8:34:22 Start Date: 12/23/13 Status: Ordered cyclobenzaprine 10 mg oral tablet 1 tablet = 10 mg, By Mouth, Daily at bedtime, 0 Refills, Maintenance, 12/23/13 8:37:42 Start Date: 12/23/13 Status: Ordered gabapentin 600 mg oral tablet 1 tablet = 600 mg, By Mouth, 3 times a day, 0 Refills, Maintenance, 12/23/13 8:35:39 Start Date: 12/23/13 Status: Ordered lorazepam 1 mg oral tablet 1 tablet = 1 mg, By Mouth, 2 times a day, 0 Refills, Maintenance, 12/23/13 8:38:36 Start Date: 12/23/13 Status: Ordered metoprolol 25 mg oral tablet 1 tablet = 25 mg, By Mouth, 2 times a day, 0 Refills, Maintenance, 12/23/13 8:42:37 Start Date: 12/23/13 Status: Ordered Physical therapy Physical therapy, See Instructions, # 1 each, Refills 0, Tot. Refills 0, Maintenance, Indication: Stroke, 08/18/16 13:40:37, Compound Start Date: 08/18/16 Status: Ordered Singulair 10 mg oral tablet 1 tablet = 10 mg, By Mouth, Daily, 0 Refills, Maintenance, 12/23/13 8:36:22 Start Date: 12/23/13 Status: Ordered trazodone 100 mg oral tablet 1 tablet = 100 mg, By Mouth, Daily at bedtime, 0 Refills, Maintenance, 12/23/13 8:36:53 Start Date: 12/23/13 Status: Ordered Problem List Condition Confirmation Course Effective Dates Status H ealth Status Informant Anxiety Confirmed Active Basal ganglia hemorrhage 1 Confirmed Active CVAx 3? 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 2Reportedly x 3 Procedures Procedure Date Related Diagnosis Body Site Status Appendectomy Completed Colonoscopy Completed Hysterectomy Completed Myringotomy and insertion of T tube Completed Possible Hiatal herniorrhaphy Completed Spinal cord stimulator Co mpleted Vital Signs Most recent to oldest [Reference Range]: 1 Height 154.94 cm (08/18/23 12:24 PM) Weight 80.1 kg (08/18/23 12:24 PM) Oxygen Saturation [94-100 %] 97 % (08/18/23 12:24 PM) Pulse Rate [55-90 bpm] 65 bpm (08/18/23 12:24 PM) Body Mass Index [18.5-24.99 kg/m2] 33.37 kg/m2 *>HHI* (08/18/23 12:24 PM) Blood Pressure [90-138/55-84 mm Hg] 123/ 65mm Hg (08/18/23 12:24 PM) Respiratory Rate [16-30 br/min] 16 br/mi n (08/18/23 12:24 PM) Mode of Delivery (Oxygen) Room air (08/18/23 12:24 PM) Blood pressure sites Arm, left (08/18/23 12:24 PM) Weight Obtained Via Standing scale (08/18/23 12:24 PM) Social History Social History Type Response Smoking Status Current every day everardo castillo entered on: 08/15/16 Sex Patient Care team information Care Team Personnel Name: Cynthia Ga Position: Reference Physician Member Role: PCP Address: Address: [address] [place] [id number]- Name: Irais Evans RN Position: S RN Member Role: Primary Care Nurse Name: Magi Lombardi RN Position: S RN Member Role: Primary Care Nurse Care Team Related Persons Name: PAOLA LI Address: [address] [address]
--- OUTSIDE RECORDS SUMMARY | 2023-08-30 13:58 | XMS_ITS | Patient Health Record ---
Author Organization [facility] Address [address] [place] [address] Care Team Providers Care Group Therapy Counselor Name Role Phone AMBER PEGUERO Primary Care Provider Paola Quintero Unavailable [phone] ALLERGIES Allergen (clinical drug ingredient) Drug/Non Drug Allergy documented on EMR Reaction Allergy Type Onset Date Status aspirin Aspirin Unknown Drug Allergy Active opioid, analgesics (uncoded) Unknown Allergy Active Shellfish (FN) shrimp (uncoded) Unknown Allergy Active adhesive tape (uncoded) Unknown Allergy Active Penicillin Unknown Drug Allergy Active phenytoin Dilantin Unknown Drug Allergy Active Codeine Phosphate Unknown Drug Allergy Active REASON FOR REFERRAL No Information MEDICATIONS Medication SIG (Take, Route, Frequency, Duration) Notes Start Date End Date Status Spiriva HandiHaler 18 MCG 1 capsule Inha lation Once a day Not-Taking Singulair 10 MG 1 tablet in the evening Orally Once a day Not-Taking Dicyclomine HCl 10 MG take 1 30-60 minut es before a meal Orally Up tp three times a day for 30 day(s) 07/23/2021 Active Omeprazole 20 MG 1 capsule Orally bid Active Morphine Sulfate 15 MG 1 tablet as neede d Orally every 4 hrs Not-Taking metFORMIN HCl 500 MG 1 tablet with a kirt l Orally twice a day Not-Taking Calcium 600 + D 600-200 MG-UNIT 1 Orally qd Active MiraLax (colon prep) 8.3 ounce ((238) grams mixed with Gatorade or Crystal Light orally begin at 5:00 p.m. the day before the procedure for 1 day 03/27/2018 Not-Taking ProAir HFA 108 (90 Base) MCG/ACT 2 puffs as needed Inhalation every 4 hrs Active Ferrous Sulfate 325 (65 Fe) MG 1 tablet Orally Once a day Not-Taking Metoprolol Succinate ER 25 MG 1 tablet Orally twice a day Active Nitroglycerin 0.4 MG 1 spray under the tongue Sublingual prn Active Dulcolax (colon prep) 5 MG take at 3:00 p.m and 7:00p.m. Orally two tablets twice a day for one day for 1 day 03/27/2018 Not-Taking Citalopram & Diet Manage Prod 10 MG 1 Orally bid Active Cyclobenzaprine HCl 10 MG 1 tablet Orally qhs Active traZODone HCl 50 MG 2 tablet at bedtime Orally Once a day Active Oxycodone-Acetaminophen ER 7.5-325 MG 1 tablet Orally every 12 hrs Not-Taking LORazepam 1 MG 1 tablet as needed Orally Twice a day Active Clopidogrel Bisulfate 75 MG 1 tablet Ora lly Once a day for 30 day(s) Active Vitamin D-3 25 MCG (1000 UT) 1 capsule Orally Once a day for 30 day(s) Active Gabapentin 600 MG 1 capsule Orally Three times a day Active Metoprolol Succinate 25 MG 1 capsule Ora lly Once a day for 30 day(s) Active Atorvastatin Calcium 40 MG 1 tablet Oral ly Once a day for 30 day(s) Active Folic Acid 1 MG 1 tablet Orally Once a day for 30 day(s) 01/08/2022 Active IMMUNIZATIONS Vaccine Route Administration Date Status Comme nts Influenza Unknown 12/18/2017 Administered Influenza Unknown 02/03/2021 Administered SOCIAL HISTORY Tobacco Use: Social History Observation Description Date Details (start date - stop date) Current Smoker NA - NA Sex Assigned At : Social History Observation Description Sex Assigned At Unknown Tobacco Use/Smoking Question Answer Notes Patient is a current smoker How often do you smoke cigarettes? every day How many cigarettes a day do you smoke? 6-10 How soon after you wake up do you smoke your fir st cigarette? within 5 minutes Are you interested in quitting? Not ready to duncan t PROBLEMS Problem Type ICD Code Onset Dates Problem Status W/U Status Risk SNOMED Code Notes Problem Epigastric abdominal pain (R10.13) Active confirmed 86174159 Problem Gastro-esophageal reflux disease without esophagitis (K21.9) Active confirmed 139632736 Problem Encounter for screening for malignant neoplasm of colon (Z12.11) Active confirmed 901941775 Problem Gastroparesis (K31.84) Active confirmed 926876802 Problem Irritable bowel syndrome without diarrhea (K58.9) Active confirmed 95295787 Problem Other constipation (K59.09) Active confirmed 524438920 Problem Iron deficiency anemia (D50.9) Active confirmed Iron deficien cy anemia (58612961) Problem Gastroesophageal reflux disease, esophagitis presence not specified (K21.9) Active confirmed 517280104 Problem Heme + stool (R19.5) Active confirmed Abnormal feces (801183970) Problem Gastritis (K29.70) Active confirmed Gas tritis (8326825) Problem Abdominal pain, generalized (R10.84) Active confirmed 956931616 Problem Irritable bowel syndrome with constipation (K58.1) Active confirmed 333543753 Problem Diverticulosis of colon (K57.30) Active confirmed Diverticulosi s of colon (850625941) Problem Folate deficiency (E53.8) Active confirmed Folate deficiency (348480753) PLAN OF TREATMENT Pending Test Test Name Order Date IRON + IBC (FE) 12/23/2021 VITAMIN B12 AND FOLATE 12/23/2021 CBC w DIFF 12/23/2021 US ABD 07/23/2021 Future Test Test Name Order Date COLONOSCOPY 03/27/2018 UPPER GI ENDOSCOPY 07/23/2021 COLONOSCOPY 12/23/2021 Insurance Providers Payer Name Payer Address Payer Phone Subscriber Number Group Number Insured Name Patient Relationship to Insured Coverage Start Date Coverage End Date [facility] [address] [address] [place] [address] [phone] [id number] JACOBO LI Self - patient is the insured 2 2 MEDICAL (GENERAL) HISTORY Medical History History ICD Code Irritable bowel syndrome Gastroparesis-- a nuclear me dicine gastric emptying study in 2008 revealed significantly delayed gastric emptying Gastroesophageal reflux and dysphagia--most recent EGD was August 2011, at which time there was no evidence of any esophagitis nor esophageal stricture--the gastroesophageal junction was dilated with a 20 mm balloon--the previous fundoplication appeared intact Chronic back pain Depression and anxiety Hyperlipidemia Diet-controlled diabetes hearing aids She denies any history of HI She reports a history of a CVA and TIAs- - some residual speech deficit Reported negative colonoscopy with Dr. Ashlee Oliveros in 2004 Colonoscopy in November revealed only hyperplastic polyps, diverticulosis, and internal hemorrhoids Stroke x 2/ TIA's Memory issues Negative colonoscopy in 2018 Upper endoscopy in August was negative for celiac disease, gastritis, H. pylori, ulcer disease, and esophagitis Negative gallbladder ultrasound in July of 2021 Surgical History Surgery Date(Month/Year) Laparoscopic Estevan Fundoplication by Dr Miranda in October of 2001 Knee surgery Appendectomy NEAL Stimulator in back for back pain Elbow surgery C-spine disc
[2023-08-30 14:22] VITALS: BP 142/72; PULSE 91; O2SAT 98; BMI 32.1
--- NOTE | 2023-08-30 14:22 | MHC.OFFWIV ---
Intake Vital Signs 08/30/23 14:22 Height 5 ft 1 in Weight 170 lb BMI 32.1 BP 142/72 H Blood Pressure Location Rt brachial Position Sitting Pulse 91 Pulse Source Pulse Oximeter Pulse Oximetry (%) 98 Oxygen Delivery Method Room Air Intake Visit Reasons: EST/light headed/trouble sleeping (lobby) Intake Note: pt is here for light headed with trouble sleeping Patient Tobacco Use Status: Current everyday Tobacco user Allergies aspirin [Aspirin] Allergy (Severe, Verified 08/30/23 14:23) ANAPHYLAXIS codeine [Codeine] Allergy (Intermediate, Verified 08/30/23 14:23) SHORTNESS OF BREATH, sob Penicillins Allergy (Intermediate, Verified 08/30/23 14:23) rash phenytoin Allergy (Intermediate, Verified 08/30/23 14:23) SHORTNESS OF BREATH,hives shrimp Allergy (Mild, Verified 08/30/23 14:23) ITCHY, anaphylaxis adhesive tape [ADHESIVE TAPE] Allergy (Unknown, Verified 08/30/23 14:23) RASH Do you need a note to return to daycare/school/sports/work: No HPI HPI Comments History of Present Illness Details 68 y/o female patient who presents to walk in clinic with c/o feeling lethargic, inability to sleep, headaches, fatigue and stresses. Pt lives with her mother and the two are not getting along, so she has been under tremendous stress. Pt also needs refills of her medications - she has been out since . [facility] Medical History (Updated 08/30/23 @ 14:45 by Carol Kyle NP) Post laminectomy syndrome History of TIA (transient ischemic attack) Vascular dementia Diabetes Dyslipidemia Fatty liver COPD (chronic obstructive pulmonary disease) Asthma Nicotine dependence, cigarettes, uncomplicated Allergic rhinitis Cough Esophageal stenosis B12 deficiency Left sided sciatica Surgical History (Updated 08/21/23 @ 17:22 by BLAKE Cole) S/P insertion of spinal cord stimulator History of Estevan fundoplication History of appendectomy History of hysterectomy History of esophagogastroduodenoscopy (EGD) History of colonoscopy History of arthroscopic knee surgery History of removal of cyst Family History Father Cirrhosis Brain cancer Mother No problems noted. Social History Housing: House Patient Tobacco Use Status: Current everyday Tobacco user Tobacco use type: Cigarette Cigarette Packs Per Day: 0.5 Cigarettes Per Day: 5 Years Smoked: (onset 13yo, 1ppd x 54yrs, now 1/4ppd, 40PYH) e-Cigarette/Vaping Use: Never Used Second Hand Smoke Exposure: No Current occupational status: retired and disabled Cognitive needs: No Hearing needs: No Vision needs: No Review of Systems Const All systems reviewed & are unremarkable except as noted in HPI and below Physical Exam Vital Signs: Last Vital Signs Pulse 91 08/30/23 14:22 BP 142/72 H 08/30/23 14:22 Pulse Ox 98 08/30/23 14:22 Oxygen Delivery Method Room Air 08/30/23 14:22 BMI result Body Mass Index 32.1 Const General: comfortable and no acute distress Nutritional Appearance: obese Orientation/consciousness: patient oriented x3 Resp Effort & Inspection: normal respiratory effort Auscultation: clear to auscultation bilaterally Cardio Rate: regular rate Rhythm: regular rhythm Neuro General: patient oriented x3, gait normal and moves all extremities Psych Speech and movement: Normal speech and movement present Assessment & Plan Assessment & Plan (1) Medication refill: Code(s): Z76.0 - Encounter for issue of repeat prescription Plan: - refilled all her medications with 90 day supply - F/U with PCP for refills. (2) Malaise and fatigue: Code(s): R53.81 - Other malaise; R53.83 - Other fatigue Plan: - Probably stress related - Trazodone will help with sleep. Medications: Changed From atorvastatin 40 mg PO DAILY 90 days 90 tabs 1RF E78.5 - Hyperlipidemia, unspecified To atorvastatin 40 mg PO DAILY 90 tabs 0RF E78.5 - Hyperlipidemia, unspecified Refilled trazodone 100 mg (2 x 50 mg) PO DAILY 60 tabs 0RF 30 days citalopram 40 mg PO DAILY 90 tabs 1RF clopidogrel 75 mg PO DAILY 90 tabs 0RF gabapentin 600 mg PO TID 270 tabs 0RF 90 days metoprolol tartrate 50 mg PO BID 180 tabs 0RF 90 days montelukast 10 mg PO DAILY 90 tabs 0RF 90 days Coding Level of Care Code Est Pt Level 3 (72698) Diagnoses Medication refill Z76.0 Malaise and fatigue R53.81; R53.83 Time Spent (min) 15
== END 2023-08-30 14:54 | disposition home or self-care (01) ==
PROVIDERS: PCP Nurse Practitioner Family; Visit Provider Nurse Practitioner Family
DX: Z76.0 Encounter for issue of repeat prescription (principal); R53.81 Other malaise; R53.83 Other fatigue
CPT/HCPCS: 99213

== ENCOUNTER 2023-09-19 10:30 | Outpatient (AMB) | payer OTHER, MEDICAID, SELFPAY ==
--- NOTE | 2023-09-19 10:32 | A.OFFPC_ITS ---
Vital Signs 09/19/23 10:35 Height 5 ft 1 in Weight 170 lb 2 oz BMI 32.1 BP 108/68 Blood Pressure Location Rt brachial Position Sitting Pulse 52 Pulse Source Pulse Oximeter Pulse Oximetry (%) 94 Oxygen Delivery Method Room Air Intake Visit Reasons: 4M F/U Intake Note: Patient here for dm f/u. Allergies aspirin [Aspirin] Allergy (Severe, Verified 09/19/23 10:35) ANAPHYLAXIS codeine [Codeine] Allergy (Intermediate, Verified 09/19/23 10:35) SHORTNESS OF BREATH, sob Penicillins Allergy (Intermediate, Verified 09/19/23 10:35) rash phenytoin Allergy (Intermediate, Verified 09/19/23 10:35) SHORTNESS OF BREATH,hives shrimp Allergy (Mild, Verified 09/19/23 10:35) ITCHY, anaphylaxis adhesive tape [ADHESIVE TAPE] Allergy (Unknown, Verified 09/19/23 10:35) RASH Medication List - Last Reconciled 09/19/23 by BLAKE Cole atorvastatin 40 mg PO DAILY cholecalciferol (vitamin D3) 25 mcg PO DAILY 90 days citalopram 40 mg PO DAILY clopidogrel 75 mg PO DAILY cyclobenzaprine 10 mg PO BEDTIME PRN 30 days famotidine 40 mg PO DAILY 90 days ferrous sulfate 325 mg PO DAILY folic acid 1 mg PO DAILY 90 days FreeStyle Niyah 2 Jasper (flash glucose scanning reader) daily use NS FreeStyle Niyah 2 Sensor (flash glucose sensor) daily use NS gabapentin 600 mg PO TID 90 days lisinopril 2.5 mg PO DAILY 90 days lorazepam 1 mg PO BID PRN 30 days mecobalamin (vitamin B12) 1,000 mcg sublingual DAILY 90 days metoprolol tartrate 50 mg PO BID 90 days montelukast 10 mg PO DAILY 90 days trazodone 100 mg (2 x 50 mg) PO DAILY 30 days Tobacco use date assessed: 06/08/23 Fall risk assessment: No Falls in past year Last assessed Fall Risk: 09/19/23 Dental Screening Dental Screen Date: 06/08/23 HPI 4M F/U HPI Details Pt is a diabetic, on an VALENTINE and a statin. A1C in office today is 6.2. Due for microalbumin, will order. Denies polyuria, polydipsia, and neuropathy. Pt denies any signs and symptoms of hypoglycemia and does know how to correct it. Dyslipidemia: On atorvastatin 40mg. Will order labs. [facility] Medical History (Updated 08/30/23 @ 14:45 by Carol Kyle NP) Post laminectomy syndrome History of TIA (transient ischemic attack) Vascular dementia Diabetes Dyslipidemia Fatty liver COPD (chronic obstructive pulmonary disease) Asthma Nicotine dependence, cigarettes, uncomplicated Allergic rhinitis Cough Esophageal stenosis B12 deficiency Left sided sciatica Surgical History (Updated 08/21/23 @ 17:22 [facility] S/P insertion of spinal cord stimulator History of Estevan fundoplication History of appendectomy History of hysterectomy History of esophagogastroduodenoscopy (EGD) History of colonoscopy History of arthroscopic knee surgery History of removal of cyst Family History Father Cirrhosis Brain cancer Mother No problems noted. Social History Housing: House Patient Tobacco Use Status: Current everyday Tobacco user Tobacco use type: Cigarette Cigarette Packs Per Day: 0.5 Cigarettes Per Day: 5 Years Smoked: (onset 13yo, 1ppd x 54yrs, now 1/4ppd, 40PYH) e-Cigarette/Vaping Use: Never Used Second Hand Smoke Exposure: No Current occupational status: retired and disabled Cognitive needs: No Hearing needs: No Vision needs: No Questionnaire PHQ-9 Over the last 2 weeks, how often have you been bothered by any of the following problems? 22669 - PHQ-9 Billing: Patient declined-do not bill Source: Developed by Drs. Jaime Rodriguez, Brittani Wing, Raj Del Rosario and colleagues, with an educational ender from [employer]. Thrive Questionnaire Date Thrive assessed: 06/08/23 SHENA-7 AMB Questionnaire SHENA-7 Date SHENA - 7 assessed: 06/08/23 Source: Developed by Drs. Jaime Rodriguez, Brittani Wing, Raj Del Rosario and colleagues, with an educational ender from [employer]. SHENA-7 Assessment Billing SHENA-7 Assessment Tool: pt declined-do not bill Review of Systems Const Reports as per HPI Physical exam (Primary Care) Vital Signs: Last Vital Signs Pulse 52 09/19/23 10:35 BP 108/68 09/19/23 10:35 Pulse Ox 94 09/19/23 10:35 Oxygen Delivery Method Room Air 09/19/23 10:35 BMI result Body Mass Index 32.1 Tobacco/Smoking Status: Tobacco use Status Tobacco use date assessed 06/08/23 09/19/23 10:34 Patient Tobacco Use Status Current everyday Tobacco 09/19/23 10:34 Tobacco use type Cigarette 09/19/23 10:34 e-Cigarette/Vaping Use Never Used 09/19/23 10:34 Thrive Assessment: Date of Thrive Assessment Date Thrive assessed 06/08/23 09/19/23 10:34 Const General: cooperative Orientation/consciousness: patient oriented x3 Resp Effort & Inspection: normal respiratory effort Auscultation: clear to auscultation bilaterally and diminished lung sounds Cardio Rate: regular rate Rhythm: regular rhythm Heart sounds: S1 normal heart sound present and S2 normal heart sound present Neuro General: patient oriented x3 Extrem Other: bilat feet: + sensation with use of monofilament, feet intact, callus noted to right big toe medial aspect Psych Appearance: grossly normal Mental Status: mental status grossly normal Speech and movement: Normal speech and movement present Affect: normal affect Attitude: cooperative Thought process: Normal thought process present Thought content: Normal thought content present Insight: Good insight present (Psych) Judgement: Good judgement present (Psych) Results AMB Hemoglobin A1c AMB Hemoglobin A1c 6.2 % Last Edit by LARISSA Wesley on 09/19/23 10 :51 Assessment and Plan Assessment & Plan (1) Dyslipidemia: Code(s): E78.5 - Hyperlipidemia, unspecified Plan: Labs ordered (2) Diabetes: Code(s): E11.9 - Type 2 diabetes mellitus without complications Plan: Labs ordered Plan The patient agreed to the use of a medical physicist for this encounter. Scribed for BLAKE Acuna by Ana Chan medical physicist, on 09/19/2023 at 10:45 EST. Orders: Orders Lipid Panel Today E11.9 - Type 2 diabetes mellitus without complications, E78.5 - Hyperlipidemia, unspecified Microalbumin, Random (w Creat) Today E11.9 - Type 2 diabetes mellitus without complications AMB Hemoglobin A1c Today E11.9 - Type 2 diabetes mellitus without complications Coding Level of Care Code Est Pt Level 3 (36252) Diagnoses Dyslipidemia E78.5 Diabetes E11.9
[2023-09-19 10:35] VITALS: BP 108/68; PULSE 52; O2SAT 94; BMI 32.1
== END 2023-09-19 10:57 | disposition home or self-care (01) ==
PROVIDERS: PCP Nurse Practitioner Family; Visit Provider Nurse Practitioner Family
DX: E78.5 Hyperlipidemia, unspecified (principal); E11.9 Type 2 diabetes mellitus without complications
CPT/HCPCS: 83036; 99213

== ENCOUNTER 2023-09-19 10:57 | Outpatient (REF) | payer MEDICARE, MEDICAID, SELFPAY ==
[2023-09-19 13:21] LABS: MANUAL DIFF FLAG NO
[2023-09-19 13:33] LABS: Appearance Urine Clear; Color Urine Yellow; Glucose Urine UA Negative (Negative); Leukocyte Esterase Urine Moderate (2+) (Negative); Nitrite Urine Negative (Negative); UMIC TRIGGER UACC YES; Urine Blood Negative (Negative); Urine Ketones Negative (Negative); Urine Protein Negative (Neg-Trace)
[2023-09-19 13:34] LABS: Basophils Absolute Auto 0.1 X10*3/uL (0.0-0.2); Eosinophils Absolute Auto 0.2 X10*3/uL (0.0-0.4); Eosinophils Percent Auto 2.6 % (0-4); Hematocrit 43.2 % (37.0-47.0); Hemoglobin 14.6 g/dl (12.0-16.0); Imm Gran Abs Auto 0.02 X10*3/uL (0.00-0.03); Imm Gran Pct Auto 0.2 % (0.0-0.4); Lymphocytes Absolute Auto 2.5 X10*3/uL (1.2-4.9); Lymphocytes Percent Auto 31.7 % (20-40); Mean Corpuscular HGB Conc 33.8 g/dl (31.0-35.0); Mean Corpuscular Hemoglobin 32.7 pg (27.0-33.0); Mean Corpuscular Volume 96.6 fL (80.0-98.0); Mean Platelet Volume 11.1 fL (9.4-12.3); Monocytes Absolute Auto 0.6 X10*3/uL (0.1-1.2); Neutrophils Absolute Auto 4.6 x10*3/uL (2.0-8.3); Neutrophils Percent Auto 57.5 % (45-73); Platelet Count 261 X10*3/uL (160-400); Red Blood Count 4.47 X10*6/uL (4.20-5.50); Red Cell Distribution Width 12.6 % (11.0-16.0)
[2023-09-19 13:36] LABS: Bacteria Urine None Seen (None Seen); Hyaline Casts Urine 0-2 /LPF (0-2); RBC Urine 0-2 /HPF (0-2); Squamous Epithelial Cell Urine 0-2 /HPF (0-2); UACC Culture Trigger YES
[2023-09-19 14:00] LABS: Alanine Aminotransferase 51 U/L (0-31); Albumin Level 3.9 g/dL (3.5-5.0); Alkaline Phosphatase 53 U/L (39-117); Anion Gap 14 (12-20); Aspartate Amino Transferase 46 U/L (5-31); Bilirubin Total 0.4 mg/dL (0.0-1.0); Blood Urea Nitrogen 9 mg/dL (9-16); Calcium 9.7 mg/dL (8.4-10.2); Carbon Dioxide 24 mmol/L (22-29); Chloride 107 mmol/L (96-108); Cholesterol 121 mg/dL (<200); Estimated Glomerular Filt Rate > 60; Glucose Fasting 112 mg/dL (60-99); HDL Cholesterol 42 mg/dL (>40); LDL Cholesterol Calculated 51 mg/dL (<100); Potassium 4.5 mmol/L (3.3-5.1); Sodium 140 mmol/L (135-145); Total Protein 6.9 g/dL (6.5-8.0); Triglycerides 141 mg/dL (<150)
[2023-09-19 14:03] LABS: Estimated Average Glucose 126 mg/dL
[2023-09-19 14:07] LABS: Creatinine Urine 93.41 mg/dL; Microalbum/Creatinine Ratio Ur 19.2 ug/mg cr (<30)
[2023-09-19 14:30] LABS: Folate > 20.0 ng/mL (> or = 4.0); Vitamin B12 > 2000 pg/mL (200-900)
== END 2023-09-19 10:58 | disposition home or self-care (01) ==
LOC: HO.HMGCLDS 10:57
PROVIDERS: PCP Nurse Practitioner Family; Visit Provider Nurse Practitioner Family
DX: Z00.00 Encounter for general adult medical examination without abnormal findings (principal); E11.9 Type 2 diabetes mellitus without complications; E78.5 Hyperlipidemia, unspecified; E53.8 Deficiency of other specified B group vitamins; R82.90 Unspecified abnormal findings in urine
CPT/HCPCS: 36415; 80053; 80061; 81001; 82043; 82570; 82607; 82746; 83036; 84443; 85025; 87086

== ENCOUNTER 2024-01-23 10:10 | Outpatient (AMB) | payer MEDICARE, MEDICAID, SELFPAY ==
[2024-01-23 10:12] VITALS: BP 120/72; PULSE 58; O2SAT 95; BMI 30.4
--- NOTE | 2024-01-23 10:12 | A.OFFPC_ITS ---
Vital Signs 01/23/24 10:12 Height 5 ft 1 in Weight 161 lb BMI 30.4 BP 120/72 Blood Pressure Location Lt brachial Position Sitting Pulse 58 Pulse Source Pulse Oximeter Pulse Oximetry (%) 95 Oxygen Delivery Method Room Air Intake Visit Reasons: 4M F/U Intake Note: pt is here for 4 month follow up [employer] Specialist Required: No Accompanied by: Self / Same As Patient Allergies aspirin [Aspirin] Allergy (Severe, Verified 01/23/24 10:13) ANAPHYLAXIS codeine [Codeine] Allergy (Intermediate, Verified 01/23/24 10:13) SHORTNESS OF BREATH, sob Penicillins Allergy (Intermediate, Verified 01/23/24 10:13) rash phenytoin Allergy (Intermediate, Verified 01/23/24 10:13) SHORTNESS OF BREATH,hives shrimp Allergy (Mild, Verified 01/23/24 10:13) ITCHY, anaphylaxis adhesive tape [ADHESIVE TAPE] Allergy (Unknown, Verified 01/23/24 10:13) RASH Tobacco use date assessed: 06/08/23 Fall risk assessment: No Falls in past year Last assessed Fall Risk: 01/23/24 Dental Screening Dental Screen Date: 06/08/23 HPI 4M F/U HPI Details diabetes: here for a follow up. Denies any polyuria, polydipsia, or neuropathy. A1c was 5.9 today. Pt is on a statin and a VALENTINE. Will order more labs. Microalbumin is up to date. Reports her eye exam is up to date [facility] Medical History Post laminectomy syndrome History of TIA (transient ischemic attack) Vascular dementia Diabetes Dyslipidemia Fatty liver COPD (chronic obstructive pulmonary disease) Asthma Nicotine dependence, cigarettes, uncomplicated Allergic rhinitis Cough Esophageal stenosis B12 deficiency Left sided sciatica Surgical History S/P insertion of spinal cord stimulator History of Estevan fundoplication History of appendectomy History of hysterectomy History of esophagogastroduodenoscopy (EGD) History of colonoscopy History of arthroscopic knee surgery History of removal of cyst Family History Father Cirrhosis Brain cancer Mother No problems noted. Social History Housing: House Patient Tobacco Use Status: Current everyday Tobacco user Tobacco use type: Cigarette Cigarette Packs Per Day: 0.5 Cigarettes Per Day: 5 Years Smoked: (onset 13yo, 1ppd x 54yrs, now 1/4ppd, 40PYH) Packs Per Year: 0 Packs per year/per ci.00 e-Cigarette/Vaping Use: Never Used Second Hand Smoke Exposure: No Current occupational status: retired and disabled Cognitive needs: No Hearing needs: No Vision needs: No Questionnaire PHQ-9 Over the last 2 weeks, how often have you been bothered by any of the following problems? 1. Little interest or pleasure in doing things: not at all 2. Feeling down, depressed, or hopeless: not at all 3. Trouble falling or staying asleep, or sleeping too much: not at all 4. Feeling tired or having little energy: not at all 5. Poor appetite or overeating: not at all 6. Feeling bad about yourself - or that you are a failure or have let yourself or your family down: not at all 7. Trouble concentrating on things, such as reading the newspaper or watching television: not at all 8. Moving or speaking so slowly that other people could have noticed. Or the opposite - being so fidgety or restless that you have been moving around a lot more than usual: not at all 9. Thoughts that you would be better off or of hurting yourself in some way: not at all Total score: 0 Depression Screening Interpretation: Negative Depression Screening Done: Yes 54752 - PHQ-9 Billing: Yes Source: Developed by Drs. Jaime Rodriguez, Brittani Wing, Raj Del Rosario and colleagues, with an educational ender from [employer]. Thrive Questionnaire Date Thrive assessed: 01/23/24 I am a: Patient What is your living situation today?: I have a steady place to live Within the past 12 months, did the food you bought not last and you didn't have the money to get more?: Often true Within the past 12 months, did you worry whether your food would run out before you got money to buy more?: Often true Do you have trouble paying for medicines?: No Do you have trouble getting transportation to medical appointments?: Yes Do you have trouble paying your heating and electricity bill?: No Do you have trouble taking care of your child, family member or friend?: No Do you have trouble with day-to-day activities such as bathing, preparing meals, shopping, managing finances, etc.?: No Are you interested in more education?: No Please select the resources that you would like help with: None Currently or been in a relationship where the following occur: I choose not to answer THRIVE Score: 3 AUDIT C Alcohol Use Questionnaire (AUDIT-C) 1. How often do you have a drink containing alcohol?: Monthly or less 2. How many drinks containing alcohol do you have on a typical day when you are drinking?: 1 or 2 3. How often do you have six or more drinks on one occasion?: Never Total Score: 1 Score Reviewed/Action Taken: Yes SHENA-7 AMB Questionnaire SHENA-7 Date SHENA - 7 assessed: 01/23/24 Feeling nervous, anxious, or on edge: 0 = Not at all Not being able to stop or control worryin = Not at all Worrying too much about different things: 0 = Not at all Trouble relaxin = Not at all Being so restless that it is hard to sit still: 0 = Not at all Becoming easily annoyed or irritable: 1 = Several days Feeling afraid as if something awful might happen: 0 = Not at all Total SHENA-7 score (0-4 normal; 5-9 mild; 10-14 moderate; 15-21 severe): 1 Source: Developed by Drs. Jiame Rodriguez, Brittani Wing, Raj Del Rosario and colleagues, with an educational ender from [employer]. SHENA-7 Assessment Billing SHENA-7 Assessment Tool: SHENA-7 Assessment 95119 Physical exam (Primary Care) Vital Signs: Last Vital Signs Pulse 58 01/23/24 10:12 BP 120/72 01/23/24 10:12 Pulse Ox 95 01/23/24 10:12 Oxygen Delivery Method Room Air 01/23/24 10:12 BMI result Body Mass Index 30.4 Tobacco/Smoking Status: Tobacco use Status Tobacco use date assessed 06/08/23 01/23/24 10:14 Patient Tobacco Use Status Current everyday Tobacco 01/23/24 10:14 Tobacco use type Cigarette 01/23/24 10:14 e-Cigarette/Vaping Use Never Used 01/23/24 10:14 PHQ-9: PHQ-9 Score PHQ-9: Total score 0 01/23/24 10:45 Depression Screening Interpretation: Negative Thrive Assessment: Date of Thrive Assessment Date Thrive assessed 01/23/24 01/23/24 10:14 Currently or been in a relationship where the following occur: I choose not to answer Resp Effort & Inspection: normal respiratory effort Auscultation: clear to auscultation bilaterally Cardio Rate: regular rate Rhythm: regular rhythm Heart sounds: S1 normal heart sound present and S2 normal heart sound present Neuro Other: + sensation with use of monofilament, intact bilat Psych Appearance: grossly normal Mental Status: mental status grossly normal Speech and movement: Normal speech and movement present Affect: normal affect Attitude: cooperative Thought process: Normal thought process present Thought content: Normal thought content present Insight: Good insight present (Psych) Judgement: Good judgement present (Psych) Results AMB Hemoglobin A1c AMB Hemoglobin A1c 5.9 % Last Edit by Miller Chandler CMA on 01/23/24 10: 45 Results Reviewed Results Reviewed: Laboratory Last Values Hgb A1c (Clinic) 5.9 % (4.0-6.0) 01/23/24 10:45 Coding Level of Care Code Est Pt Level 3 (10028) Diagnoses Diabetes E11.9 Postmenopausal Z78.0 Vitamin D deficiency E55.9 Additional Codes SHENA-7 Assessment Billing - SHENA-7 Assessment Tool: SHENA-7 Assessment [id number] ([id number]) Assessment & Plan Assessment & Plan (1) Diabetes: Code(s): E11.9 - Type 2 diabetes mellitus without complications Category: Medical Plan: controlled (2) Postmenopausal: Code(s): Z78.0 - Asymptomatic menopausal state Category: Medical Plan: bone density (3) Vitamin D deficiency: Code(s): E55.9 - Vitamin D deficiency, unspecified Category: Medical Plan: checking levels Orders: Orders AMB Hemoglobin A1c Today E11.9 - Type 2 diabetes mellitus without complications Complete Blood Count Auto Diff Today E11.9 - Type 2 diabetes mellitus without complications Comprehensive [place]. Panel Fast Today E11.9 - Type 2 diabetes mellitus without complications UA CC w/rflx Micro + Cult Today E11.9 - Type 2 diabetes mellitus without complications XR DEXA axial skeleton Today E55.9 - Vitamin D deficiency, unspecified, Z78.0 - Asymptomatic menopausal state TSH reflex Free T4 Today E11.9 - Type 2 diabetes mellitus without complications Lipid Panel Today E11.9 - Type 2 diabetes mellitus without complications Vitamin D 25-OH Total Today E55.9 - Vitamin D deficiency, unspecified
== END 2024-01-23 15:23 | disposition home or self-care (01) ==
PROVIDERS: PCP Nurse Practitioner Family; Visit Provider Nurse Practitioner Family
DX: E11.9 Type 2 diabetes mellitus without complications (principal); Z78.0 Asymptomatic menopausal state; E55.9 Vitamin D deficiency, unspecified

== ENCOUNTER → 2024-01-23 10:10 | Outpatient (BNVA) | payer MEDICARE, MEDICAID, SELFPAY | PROVIDERS: PCP Nurse Practitioner Family; Visit Provider Nurse Practitioner Family | DX: E11.9 Type 2 diabetes mellitus without complications (principal); E55.9 Vitamin D deficiency, unspecified; Z78.0 Asymptomatic menopausal state | CPT/HCPCS: 83036; 96127; 99212 ==

== ENCOUNTER 2024-02-15 09:05 | Outpatient (REF) | payer MEDICARE, MEDICAID, SELFPAY ==
[2024-02-15 13:18] LABS: MANUAL DIFF FLAG NO
[2024-02-15 13:19] LABS: Appearance Urine Clear; Color Urine Yellow; Glucose Urine UA Negative (Negative); Leukocyte Esterase Urine Moderate (2+) (Negative); Nitrite Urine Negative (Negative); Specific Gravity - Urine 1.015 (1.005-1.025); UMIC TRIGGER UACC YES; Urine Blood Negative (Negative); Urine Ketones Negative (Negative); Urine Protein Negative (Neg-Trace)
[2024-02-15 13:23] LABS: Bacteria Urine None Seen (None Seen); Hyaline Casts Urine 0-2 /LPF (0-2); RBC Urine 0-2 /HPF (0-2); Squamous Epithelial Cell Urine 0-2 /HPF (0-2); UACC Culture Trigger YES
[2024-02-15 13:43] LABS: INTERNATIONAL NORM RATIO 0.9 (0.9-1.1)
[2024-02-15 13:46] LABS: Basophils Absolute Auto 0.1 X10*3/uL (0.0-0.2); Basophils Percent Auto 0.9 % (0-2); Eosinophils Absolute Auto 0.2 X10*3/uL (0.0-0.4); Eosinophils Percent Auto 2.5 % (0-4); Hemoglobin 13.8 g/dl (12.0-16.0); Imm Gran Abs Auto 0.03 X10*3/uL (0.00-0.03); Imm Gran Pct Auto 0.3 % (0.0-0.4); Lymphocytes Absolute Auto 2.2 X10*3/uL (1.2-4.9); Lymphocytes Percent Auto 25.2 % (20-40); Mean Corpuscular HGB Conc 33.7 g/dl (31.0-35.0); Mean Corpuscular Hemoglobin 33.2 pg (27.0-33.0); Mean Corpuscular Volume 98.6 fL (80.0-98.0); Mean Platelet Volume 11.6 fL (9.4-12.3); Monocytes Absolute Auto 0.7 X10*3/uL (0.1-1.2); Monocytes Percent Auto 8.1 % (2-11); Neutrophils Absolute Auto 5.5 x10*3/uL (2.0-8.3); Partial Thromboplastin Time 33.1 SEC (26.0-36.8); Platelet Count 228 X10*3/uL (160-400); Red Blood Count 4.16 X10*6/uL (4.20-5.50); Red Cell Distribution Width 13.2 % (11.0-16.0); White Blood Count 8.7 X10*3/uL (4.8-10.8)
[2024-02-15 14:30] LABS: Alanine Aminotransferase 27 U/L (0-31); Albumin Level 3.7 g/dL (3.5-5.0); Alkaline Phosphatase 51 U/L (39-117); Anion Gap 12 (12-20); Aspartate Amino Transferase 29 U/L (5-31); Bilirubin Total 0.4 mg/dL (0.0-1.0); Blood Urea Nitrogen 11 mg/dL (9-16); Calcium 10.1 mg/dL (8.4-10.2); Carbon Dioxide 27 mmol/L (22-29); Chloride 108 mmol/L (96-108); Cholesterol 129 mg/dL (<200); Estimated Glomerular Filt Rate > 60; Glucose Fasting 97 mg/dL (60-99); HDL Cholesterol 46 mg/dL (>40); LDL Cholesterol Calculated 59 mg/dL (<100); Potassium 4.1 mmol/L (3.3-5.1); Sodium 143 mmol/L (135-145); Total Protein 6.5 g/dL (6.5-8.0); Triglycerides 120 mg/dL (<150)
[2024-02-15 14:37] LABS: TSH reflex Free T4 1.49 uIU/mL (0.32-4.0); Vitamin D 25-OH Total 45.9 ng/mL (>30)
== END 2024-02-15 09:06 | disposition home or self-care (01) ==
LOC: HO.HMGCLDS 09:05
PROVIDERS: PCP Nurse Practitioner Family; Visit Provider Nurse Practitioner Family
DX: E11.9 Type 2 diabetes mellitus without complications (principal); R23.3 Spontaneous ecchymoses; E55.9 Vitamin D deficiency, unspecified
CPT/HCPCS: 36415; 80053; 80061; 81001; 82306; 84443; 85025; 85610; 85730; 87086

== ENCOUNTER 2024-02-22 11:21 | Outpatient (REF) | payer MEDICARE, MEDICAID, SELFPAY ==
--- NOTE | ~2024-02-22 | MM_ITS ---
EXAMINATION: BONE DENSITOMETRY CLINICAL INDICATION: Vitamin D deficiency. COMPARISON: Previous BD dated 01/12/2012 and baseline BD dated 05/17/2007. TECHNIQUE: Using a [employer] DXA System (software version: 13.1) manufactured by [employer], dual-energy x-ray absorptiometry was performed of the lumbar spine and left hip. The images are of good technical quality. Summary results are attached. FINDINGS: LEFT FEMUR, NECK: Current: BMD 0.826 g/cm2, Z-score -0.1, T-score -1.5, osteopenia. Prior: BMD 0.887 g/cm2. Baseline: BMD 0.897 g/cm2. LEFT FEMUR, TOTAL: Current: BMD 1.034 g/cm2, Z-score 1.4, T-score 0.2, normal, 3.4% decrease from previous, 5.5% decrease from baseline (<5% change is not significant). Prior: BMD 1.070 g/cm2. Baseline: BMD 1.094 g/cm2. AP SPINE L1-L4: Current: BMD 1.344 g/cm2, Z-score 2.8, T-score 1.4, normal, 13.2% increase from previous, 20.9% increase from baseline (<5% change is not significant). Prior: BMD 1.187 g/cm2. Baseline: BMD 1.112 g/cm2. IDENTIFIED RISK FACTORS: Early menopause, history of fracture (adult), hysterectomy, anticonvulsant, bilateral oophorectomy, osteoporosis, tobacco use (current smoker), secondary osteoporosis. HISTORY OF FRACTURE: Other. MEDICATIONS: Vitamin D. MM/XR DEXA axial skeleton IMPRESSION: 1. DIAGNOSIS: Osteopenia based on the lowest T-score value of -1.5 in the femoral neck applying World Health Organization criteria. 2. 10-YEAR FRACTURE RISK PREDICTION, FRAX: Major osteoporotic fracture (clinical spine, forearm, hip or shoulder) 15.5%. Hip fracture 3.3%. 3. Treatment Recommendations: NOF guidelines recommend consideration for treatment in postmenopausal women and men age 50 and older presenting with the following: -A hip or vertebral (clinical or morphometric) fracture. -T-score less than or equal to -2.5 at the femoral neck or spine after appropriate evaluation to exclude secondary causes. -Low bone mass at the hip or spine and a 10-year fracture probability by FRAX of greater than or equal to 3% for hip fracture or greater than or equal to 20% for major osteoporotic fracture based on the [place] adapted WHO algorithm. 4. Other Recommendations: All treatment decisions require clinical judgment and consideration of individual patient factors, including patient preferences, comorbidities, previous drug use, risk factors not captured in the FRAX model (e.g. frailty, falls, vitamin D deficiency, increased bone turnover, interval significant decline in bone density) and possible under or overestimation of fracture risk by FRAX. Additional medical evaluation for secondary cause of low bone mineral density may be appropriate. FUTURE SCAN RECOMMENDATION: People with diagnosed cases of osteoporosis or at high risk for fracture should have regular bone mineral density tests. For patients eligible for Medicare, routine testing is allowed once every 2 years. The testing frequency can be increased to one year for patients who have rapidly progressing disease, those who are receiving or discontinuing medical therapy to restore bone mass, or have additional risk factors. Electronically signed by: Stefano Carver MD 02/22/2024 04:13 PM JOO AMEZCUA
== END 2024-02-22 11:22 | disposition home or self-care (01) ==
LOC: HO.MAMMO 11:21
PROVIDERS: PCP Nurse Practitioner Family; Visit Provider Nurse Practitioner Family
DX: E55.9 Vitamin D deficiency, unspecified (principal); Z78.0 Asymptomatic menopausal state
CPT/HCPCS: 77080

== ENCOUNTER 2024-06-15 09:15 | Outpatient (AMB) | payer MEDICARE, MEDICAID, SELFPAY ==
[2024-06-15 09:23] VITALS: BP 100/60; PULSE 54; RESP 16; TEMP 36.7; O2SAT 98; BMI 31.9
--- NOTE | 2024-06-15 09:23 | AM.OFFWIN_ITS ---
Intake Vital Signs 06/15/24 09:23 Height 5 ft 1 in Weight 169 lb BMI 31.9 BP 100/60 Blood Pressure Location Rt brachial Position Sitting Respiration 16 Pulse 54 Pulse Source Pulse Oximeter Temp 98.0 F Temp Source Oral Pulse Oximetry (%) 98 Oxygen Delivery Method Room Air Intake Visit Reasons: EP LT knee swelling Intake Note: Pt is here today c/o Lt knee pain and swelling started this am: no injury noted Patient Tobacco Use Status: Current everyday Tobacco user Allergies aspirin [Aspirin] Allergy (Severe, Verified 06/15/24 09:34) ANAPHYLAXIS codeine [Codeine] Allergy (Intermediate, Verified 06/15/24 09:34) SHORTNESS OF BREATH, sob Penicillins Allergy (Intermediate, Verified 06/15/24:34) rash phenytoin Allergy (Intermediate, Verified 06/15/24:34) SHORTNESS OF BREATH,hives shrimp Allergy (Mild, Verified 06/15/24 09:34) ITCHY, anaphylaxis adhesive tape [ADHESIVE TAPE] Allergy (Unknown, Verified 06/15/24:34) RASH HPI EP LT knee swelling HPI Details Patient is a 68-year-old female comes to the walk-in clinic complaining of 2 weeks of persistent left knee pain and swelling. She reports no acute injury that she can remember prior to this, and has had to start using a cane to ambulate due to the pain. She is a heavy smoker, and a diabetic, as well as sedentary lifestyle, and has history of COPD, B12 deficiency and other comorbidities. She denies fever or chills, weakness, myalgias or malaise, nausea vomiting or diarrhea, or other systemic signs of infection. No extremity weakness, numbness or tingling, chest pain or pressure or shortness of breath, or other significant associated symptoms. [facility] Medical History Post laminectomy syndrome History of TIA (transient ischemic attack) Vascular dementia Diabetes Dyslipidemia Fatty liver COPD (chronic obstructive pulmonary disease) Asthma Nicotine dependence, cigarettes, uncomplicated Allergic rhinitis Cough Esophageal stenosis B12 deficiency Vitamin D deficiency Osteopenia Left sided sciatica Surgical History S/P insertion of spinal cord stimulator History of Estevan fundoplication History of appendectomy History of hysterectomy History of esophagogastroduodenoscopy (EGD) History of colonoscopy History of arthroscopic knee surgery History of removal of cyst Family History Father Cirrhosis Brain cancer Mother No problems noted. Social History Housing: House Patient Tobacco Use Status: Current everyday Tobacco user Tobacco use type: Cigarette Cigarette Packs Per Day: 0.5 Cigarettes Per Day: 5 Years Smoked: (onset 13yo, 1ppd x 54yrs, now 1/4ppd, 40PYH) e-Cigarette/Vaping Use: Never Used Second Hand Smoke Exposure: No Current occupational status: retired and disabled Cognitive needs: No Hearing needs: No Vision needs: No Review of Systems Const All systems reviewed & are unremarkable except as noted in HPI and below Physical Exam Vital Signs: Last Vital Signs Temp 98.0 F 06/15/24 09:23 Pulse 54 06/15/24 09:23 Resp 16 06/15/24 09:23 BP 100/60 06/15/24 09:23 Pulse Ox 98 06/15/24 09:23 Oxygen Delivery Method Room Air 06/15/24 09:23 BMI result Body Mass Index 31.9 Const General: cooperative, comfortable, no acute distress, alert, awake, Physically active and well groomed; No anxious, diaphoretic, ill appearing, intoxicated appearing, poor hygiene or tired appearing Nutritional Appearance: average body habitus Limitations: no limitations Resp Effort & Inspection: normal respiratory effort, able to speak in complete sentences, no audible wheezes, no cough, no grunting, not labored, no nasal flaring, no pursed lip breathing, no retractions, not tachypneic, no tripod positioning, no use of accessory muscles and symmetric chest movement Auscultation: clear to auscultation bilaterally, no crackles, no rales, no rhonchi, no wheezes, lung sounds not diminished and No rub present Cardio Rate: regular rate Skin Other: Left posterior knee swelling, and tenderness to palpation. There is no erythema, warmth, induration or fluctuance to the area. She has 2+ pitting edema distally, with intact posterior tibial pulse. Good range of motion and strength to the left foot. Extrem Other: Left posterior knee with swollen palpable edema, tender to the palpation. No fluctuance noted, but mild induration to the area, and left calf also mildly firm than the right. No palpable cord in the calf. No erythema or warmth surrounding the joint. She has limited range of motion due to pain. Neurovascularly intact distally Psych Appearance: grossly normal Mental Status: mental status grossly normal Speech and movement: Normal speech and movement present Affect: normal affect Attitude: cooperative Thought process: Normal thought process present Insight: Good insight present (Psych) Judgement: Good judgement present (Psych) Assessment & Plan Assessment & Plan (1) Edema of knee: Code(s): M25.469 - Effusion, unspecified knee Plan Patient is a 68-year-old female was a heavy smoker and is at high-risk for DVTs, who comes to the walk-in clinic complaining of persistent left knee pain and swelling for the last 2 weeks. She reports that she has had no fever or chills or systemic signs of infection. There was no reported acute chronic physical trauma otherwise. No erythema or warmth or fever or chills suggestive of a septic joint, however very possible that she has a DVT. Unfortunately, we do not have ultrasound here at the walk-in today, as it is the weekend, and I told her that she should have Doppler ultrasound of the veins to rule out a clot at this time. I told her of the risks a clot dislodging and becoming life- threatening. She had a friend drive her here, who will be the one picking her up, and I advised that she get a ride over to the emergency department. She declined ambulance transport. She reports that she will go to [facility] as soon as she gets picked up. Coding Level of Care Code Est Pt Level 4 (09211) Diagnoses Edema of knee M25.469
== END 2024-06-15 11:08 | disposition home or self-care (01) ==
PROVIDERS: PCP Nurse Practitioner Family; Visit Provider Physician Assistant Medical
DX: M25.469 Effusion, unspecified knee (principal)

== ENCOUNTER → 2024-06-15 09:15 | Outpatient (BNVA) | payer MEDICARE, MEDICAID, SELFPAY | PROVIDERS: PCP Nurse Practitioner Family | DX: M25.462 Effusion, left knee (principal) | CPT/HCPCS: 99212 ==

== ENCOUNTER 2024-06-17 13:26 | Outpatient (REF) | payer MEDICARE, SELFPAY ==
--- NOTE | ~2024-06-17 | US_ITS ---
.EXAMINATION: US TRIPLEX LOWER EXTREMITY, LEFT CLINICAL INFORMATION: Edema, left lower extremity. COMPARISON: None available. TECHNIQUE: Color-flow triplex imaging with spectral analysis and compression Doppler were performed on the left lower extremity. FINDINGS: Respiratory variation, normal compression and augmented flow are noted throughout the visualized common femoral vein, superficial femoral vein, profunda femoral vein, popliteal vein and midcalf peroneal and posterior tibial venous segments.. There is no Delgado's cyst. US/US venous duplex LE LT IMPRESSION: No acute deep venous thrombosis involving the left lower extremity. Negative exam. Electronically signed by: Domo Arvizu MD 06/17/2024 02:12 PM EST
--- OUTSIDE RECORDS SUMMARY | 2024-06-17 15:53 | XMS_ITS | Patient Health Record ---
Author Organization [facility] Address [address] [place] [address] Care Team Providers Care Laboratory Assistant Name Role Phone AMBER PEGUERO Primary Care Provider Paola Quintero Unavailable [phone] ALLERGIES Allergen (clinical drug ingredient) Drug/Non Drug Allergy documented on EMR Reaction Allergy Type Onset Date Status Penicillin Unknown Drug Allergy Active phenytoin Dilantin Unknown Drug Allergy Active Codeine Phosphate Unknown Drug Allergy Active aspirin Aspirin Unknown Drug Allergy Active opioid, analgesics (uncoded) Unknown Allergy Active Shellfish (FN) shrimp (uncoded) Unknown Allergy Active adhesive tape (uncoded) Unknown Allergy Active REASON FOR REFERRAL No Information [...] Problem Epigastric abdominal pain (R10.13) Active confirmed 54186409 Problem Gastro-esophageal reflux disease without esophagitis (K21.9) Active confirmed [id number] Problem Encounter for screening for malignant neoplasm of colon (Z12.11) Active confirmed [id number] Problem Gastroparesis (K31.84) Active confirmed 646909367 Problem Irritable bowel syndrome without diarrhea (K58.9) Active confirmed 16344385 Problem Other constipation (K59.09) Active confirmed 222597396 Problem Iron deficiency anemia (D50.9) Active confirmed Iron deficien cy anemia (16807141) Problem Gastroesophageal reflux disease, esophagitis presence not specified (K21.9) Active confirmed 189337939 Problem Heme + stool (R19.5) Active confirmed Abnormal feces (042252865) Problem Gastritis (K29.70) Active confirmed Gas tritis (5769248) Problem Abdominal pain, generalized (R10.84) Active confirmed 915313170 Problem Irritable bowel syndrome with constipation (K58.1) Active confirmed 736016957 Problem Diverticulosis of colon (K57.30) Active confirmed Diverticulosi s of colon (574360404) Problem Folate deficiency (E53.8) Active confirmed Folate deficiency (614728856) PLAN OF TREATMENT Pending Test Test Name [...] Insured Coverage Start Date Coverage End Date [facility] [address] [address] [place] [address] [id number] JACOBO LI Self - patient is the [...] hearing aids She denies any history of [place] She reports a history of a CVA [...]
== END 2024-06-17 13:27 | disposition home or self-care (01) ==
LOC: HO.US 13:26
PROVIDERS: PCP Nurse Practitioner Family; Visit Provider Nurse Practitioner Family
DX: R22.42 Localized swelling, mass and lump, left lower limb (principal); M79.89 Other specified soft tissue disorders
CPT/HCPCS: 93971

== ENCOUNTER → 2024-06-17 13:32 | Outpatient (BNV) | payer MEDICARE, SELFPAY | PROVIDERS: PCP Nurse Practitioner Family; Visit Provider Radiology Diagnostic Radiology | DX: R60.0 Localized edema (principal) | CPT/HCPCS: 93971 ==

== ENCOUNTER 2024-07-09 14:58 | Outpatient (REF) | payer MEDICARE, MEDICAID, SELFPAY ==
--- NOTE | ~2024-07-09 | XR_ITS ---
EXAMINATION: XR KNEE, LEFT CLINICAL INFORMATION: M25.562 - Pain in left knee COMPARISON: None available. TECHNIQUE: Four views of the left knee. FINDINGS: Joint space narrowing involving the medial compartment. Marginal osteophyte formation and medial femoral condyle and medial tibial plateau. Sclerosis and the articular surface of the medial femoral condyle and medial tibial plateau. No acute cortical disruption or malalignment. Exostosis at the quadriceps tendon insertion. Suprapatellar bursa joint effusion, large volume. 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 Suprapatellar bursa joint effusion, large volume. Electronically signed by: Domo Arvizu MD 07/10/2024 02:25 PM EDT
--- OUTSIDE RECORDS SUMMARY | 2024-07-09 19:20 | XMS_ITS | Patient Health Record ---
Author Organization [facility] Address [address] [place] [address] Care Team Providers Care Grain Operations Manager Name Role Phone AMBER PEGUERO Primary Care Provider Paola Quintero Unavailable [phone] Allergies Allergen (clinical drug ingredient) Drug/Non Drug Allergy documented on EMR Reaction Allergy Type Onset Date Status aspirin Aspirin Unknown Drug Allergy Active opioid, analgesics (uncoded) Unknown Allergy Active Shellfish (FN) shrimp (uncoded) Unknown Allergy Active adhesive tape (uncoded) Unknown Allergy Active Penicillin Unknown Drug Allergy Active phenytoin Dilantin Unknown Drug Allergy Active Codeine Phosphate Unknown Drug Allergy Active Reason For Referral No Information Medications Medication SIG (Take, Route, Frequency, Duration) Notes [...] a day for 30 day(s) 01/08/2022 Active Immunizations Vaccine Route Administration Date Status Comme nts Influenza Unknown 12/18/2017 Administered Influenza Unknown 02/03/2021 Administered Social History Tobacco Use: Social History Observation Description Date Details (start date - stop date) Current Smoker NA - NA Tobacco Use/Smoking Question Answer Notes Patient is a current smoker How often do you smoke cigarettes? every day How many cigarettes a day do you smoke? 6-10 How soon after you wake up do you smoke your fir st cigarette? within 5 minutes Are you interested in quitting? Not ready to duncan t Section Notes: She does smoke, but denies a ny significant alcohol use She does smoke 1 1/2 ppd, bu t denies any significant alcohol use She does smoke 1/2 ppd, but denies any significant alcohol use She does smoke 1/2 ppd, but denies any significant alcohol use She does smoke 1/2 ppd, but denies any significant alcohol use Problems Problem Type SNOMED Code ICD Code Onset Dates Problem Status W/U Status Risk Notes Problem 33146390 Epigastric abdominal pain (R10.13) Active confirmed Problem 650673254 Gastro-esophagea l reflux disease without esophagitis (K21.9) Active confirmed Problem 511256187 Encounter for screening for malignant neoplasm of colon (Z12.11) Active confirmed Problem 002274060 Gastroparesis (K31.84) Active confirmed Problem 73939377 Irritable bowel syndrome without diarrhea (K58.9) Active confirmed Problem 238256398 Other constipati on (K59.09) Active confirmed Problem Iron deficiency anemia (81977766) Iron deficiency anemia (D50.9) Active confirmed Problem 760105871 Gastroesophageal reflux disease, esophagitis presence not specified (K21.9) Active confirmed Problem Abnormal feces (055150543) Heme + stool (R19.5) Active confirmed Problem Gastritis (3755727) Gastritis (K29.70) Active confirmed Problem 651857171 Abdominal pain, generalized (R10.84) Active confirmed Problem 201746893 Irritable bowel syndrome with constipation (K58.1) Active confirmed Problem Diverticulosis of colon (550190787) Diverticulosis of colon (K57.30) Active confirmed Problem Folate deficiency (171264960) Folate deficiency (E53.8) Active confirmed Plan Of Treatment Pending Test Test Name Order Date IRON + IBC (FE) 12/23/2021 VITAMIN B12 AND FOLATE 12/23/2021 CBC w DIFF 12/23/2021 US ABD 07/23/2021 Future Test Test Name Order Date COLONOSCOPY 03/27/2018 UPPER GI ENDOSCOPY 07/23/2021 COLONOSCOPY 12/23/2021 Insurance Providers Payer Name Payer Address Payer Phone Subscriber Number Group Number Insured Name Patient Relationship to Insured Coverage Start Date Coverage End Date [facility] [address] [address] [place], [place] [id number] [phone] [id number] GARYISAAC ESPINALILA Self - patient is the insured 2 2 Medical (General) History Medical History History ICD Code Irritable bowel [...] hearing aids She denies any history of [place] She reports a history of a CVA [...]
== END 2024-07-09 14:59 | disposition home or self-care (01) ==
LOC: HO.HMGCX 14:58
PROVIDERS: PCP Nurse Practitioner Family; Visit Provider Nurse Practitioner Family
DX: Z00.01 Encounter for general adult medical examination with abnormal findings (principal); M25.562 Pain in left knee; E11.9 Type 2 diabetes mellitus without complications; E53.8 Deficiency of other specified B group vitamins
CPT/HCPCS: 73564; 83036; 96127; 99397

== ENCOUNTER 2024-07-09 14:58 | Outpatient (AMB) | payer MEDICARE, MEDICAID, SELFPAY ==
[2024-07-09 15:00] VITALS: BP 122/72; PULSE 55; RESP 20; TEMP 36.9; O2SAT 95; BMI 31.6
--- NOTE | 2024-07-09 15:00 | MHC.PC.OV ---
Vital Signs 07/09/24 15:00 Height 5 ft 1 in Weight 167 lb 6 oz BMI 31.6 BP 122/72 Blood Pressure Location Lt brachial Position Sitting Respiration 20 Pulse 55 Pulse Source Pulse Oximeter Temp 98.4 F Temp Source Oral Pulse Oximetry (%) 95 Oxygen Delivery Method Room Air Intake Visit Reasons: ANNUAL PE Intake Note: Pt is here today for her annual physical. Pt states that she has been having L knee pain for about 7 weeks now. Allergies aspirin [Aspirin] Allergy (Severe, Verified 07/09/24 15:00) ANAPHYLAXIS codeine [Codeine] Allergy (Intermediate, Verified 07/09/24 15:00) SHORTNESS OF BREATH, sob Penicillins Allergy (Intermediate, Verified 07/09/24 15:00) rash phenytoin Allergy (Intermediate, Verified 07/09/24 15:00) SHORTNESS OF BREATH,hives shrimp Allergy (Mild, Verified 07/09/24 15:00) ITCHY, anaphylaxis adhesive tape [ADHESIVE TAPE] Allergy (Unknown, Verified 07/09/24 15:00) RASH Medication List - Last Reconciled 07/09/24 by LARRY Cole- atorvastatin 40 mg PO DAILY cholecalciferol (vitamin D3) 25 mcg PO DAILY 90 days citalopram 40 mg PO DAILY clopidogrel 75 mg PO DAILY cyclobenzaprine 10 mg PO BEDTIME PRN 30 days famotidine 40 mg PO DAILY 90 days ferrous sulfate 325 mg PO DAILY folic acid 1 mg PO DAILY 90 days FreeStyle Niyah 2 [place] (flash glucose scanning reader) daily use NS FreeStyle Niyah 2 Sensor (flash glucose sensor) daily use NS gabapentin 600 mg PO TID 90 days lisinopril 2.5 mg PO DAILY 90 days lorazepam 1 mg PO BID PRN 30 days mecobalamin (vitamin B12) 1,000 mcg sublingual DAILY 90 days metoprolol tartrate 50 mg PO BID montelukast 10 mg PO DAILY 90 days tramadol 50 mg PO BEDTIME trazodone 100 mg PO DAILY PRN 30 days Tobacco use date assessed: 07/09/24 Fall risk assessment: No Falls in past year Last assessed Fall Risk: 07/09/24 Dental Screening Dental Screen Date: 07/09/24 Did you have a dental visit in the last 12 months?: Yes Did you have a dental problem in the last 6 months where you did not have access to dental care?: No Was dental information given to patient?: Patient has dentist HPI ANNUAL PE HPI Details History of Present Illness The patient is a 68-year-old female presenting for a physical exam. She is a known case of Type 2 Diabetes Mellitus and follows up regularly for Chronic Obstructive Pulmonary Disease (COPD) with a cash sales audit clerk. Her diabetic condition is currently controlled with a 5.8 A1c. There is a callus on her right medial big toe without any open lesions. The patient has been experiencing left knee pain and swelling for the past seven weeks. An ultrasound study has already ruled out DVT. The pain is associated with tenderness and crepitus in the anterior and medial knee aspects, but there is no report of severe injury or recent trauma. Health Maintenance - Mammogram due; patient has previous cancellations. - Colon cancer screening is current and up to date. - Bone density screening is current and up to date. - Enrolled in the low-dose CAT scan program and sees pulmonary for COPD management. Social History Review of Systems denies any fevers, chills, cp, sob, n/v, blood in stool, urinary issues, polyuria, polydipsia, neuropathy. Physical Exam General: Cooperative, healthy appearing, comfortable, no acute distress and well developed Orientation: Patient oriented x3 Limitations: No limitations Head: Normal to inspection Ears: Hearing grossly normal bilaterally Nose: Normal external nose present Face and sinus: Normal facial exam Eyes: Appearance normal, both eyes and all related structures Neck: Normal visual inspection and Yes full ROM Respiratory: Scattered wheezes. Able to speak in complete sentences. Clear to auscultation bilaterally Cardiovascular: Regular rate and rhythm. Normal S1 and S2 GI: Normal to inspection. Soft to palpation and nontender Skin: No rashes or lesions noted Neuro: Patient oriented x3 Extremities: Swelling at the left knee, positive dorsalis pedis with extension and flexion tenderness noted throughout the entire anterior knee and medial aspect, crepitus noted, negative McMurrays, negative Lachmans. faint swelling to LLE, no calf tenderness or warmth. callus to right first toe (medical aspect) Results - Ultrasound of left knee ruled out deep vein thrombosis (DVT). Plan An order for a mammogram was placed to ensure the patient completes her routine screening, addressing past cancellations. The patient's Type 2 Diabetes is stable concerning neuropathy. She remains under the low-dose CAT scan surveillance for her COPD and follows up with a cash sales audit clerk. For her left knee pain, conservative management is advised as DVT has been excluded. Continued monitoring and further evaluation will be dependent on symptom progression. Discussion Notes I discussed the necessity of completing her mammogram to ensure adherence to preventive screenings. I also reviewed her COPD management plan, including ongoing involvement in a low-dose CAT scan program. For her knee pain, I explained the results of the ultrasound, allowing for an understanding of the current conservative management plan. Engagement in health maintenance practices, including regular screenings, remains crucial. Future symptoms or changes necessitating further examinations were highlighted. Patient Instructions - Schedule and complete a mammogram as soon as possible. - Continue with current management of diabetes and follow-up with cash sales audit clerk for COPD. - Monitor left knee for any worsening symptoms and report any changes. - Adhere to routine screening schedules for ongoing health maintenance. -please call to reschedule an EYE exam [facility] Medical History Post laminectomy syndrome History of TIA (transient ischemic attack) Vascular dementia Diabetes Dyslipidemia Fatty liver COPD (chronic obstructive pulmonary disease) Asthma Nicotine dependence, cigarettes, uncomplicated Allergic rhinitis Cough Esophageal stenosis B12 deficiency Vitamin D deficiency Osteopenia Left sided sciatica Surgical History S/P insertion of spinal cord stimulator History of Estevan fundoplication History of appendectomy History of hysterectomy History of esophagogastroduodenoscopy (EGD) History of colonoscopy History of arthroscopic knee surgery History of removal of cyst Family History Father Cirrhosis Brain cancer Mother No problems noted. Social History Housing: House Patient Tobacco Use Status: Current everyday Tobacco user Tobacco use type: Cigarette Cigarette Packs Per Day: 0.5 Cigarettes Per Day: 5 Years Smoked: (onset 13yo, 1ppd x 54yrs, now 1/4ppd, 40PYH) e-Cigarette/Vaping Use: Never Used Second Hand Smoke Exposure: No service: No Current occupational status: retired and disabled Cognitive needs: No Hearing needs: No Vision needs: Yes Questionnaire PHQ-9 Over the last 2 weeks, how often have you been bothered by any of the following problems? 1. Little interest or pleasure in doing things: not at all 2. Feeling down, depressed, or hopeless: not at all 3. Trouble falling or staying asleep, or sleeping too much: several days 4. Feeling tired or having little energy: several days 5. Poor appetite or overeating: several days 6. Feeling bad about yourself - or that you are a failure or have let yourself or your family down: several days 7. Trouble concentrating on things, such as reading the newspaper or watching television: not at all 8. Moving or speaking so slowly that other people could have noticed. Or the opposite - being so fidgety or restless that you have been moving around a lot more than usual: several days 9. Thoughts that you would be better off or of hurting yourself in some way: not at all Total score: 5 Depression Screening Interpretation: Negative Depression Screening Done: Yes 74264 - PHQ-9 Billing: Yes Source: Developed by Drs. Jaime Rodriguez, Brittani Wing, Raj Del Rosario and colleagues, with an educational ender from [employer]. Thrive Questionnaire Date Thrive assessed: 07/09/24 I am a: Patient What is your living situation today?: I have a steady place to live Within the past 12 months, did the food you bought not last and you didn't have the money to get more?: I choose not to answer this question Within the past 12 months, did you worry whether your food would run out before you got money to buy more?: I choose not to answer this question Do you have trouble paying for medicines?: No Do you have trouble getting transportation to medical appointments?: No Do you have trouble paying your heating and electricity bill?: No Do you have trouble taking care of your child, family member or friend?: No Do you have trouble with day-to-day activities such as bathing, preparing meals, shopping, managing finances, etc.?: No Are you currently unemployed and looking for a job?: No Are you interested in more education?: No Please select the resources that you would like help with: None Currently or been in a relationship where the following occur: No concerns reported THRIVE Score: 0 AUDIT C Alcohol Use Questionnaire (AUDIT-C) 1. How often do you have a drink containing alcohol?: Never 2. How many drinks containing alcohol do you have on a typical day when you are drinking?: 1 or 2 3. How often do you have six or more drinks on one occasion?: Never Total Score: 0 Score Reviewed/Action Taken: Yes SHENA-7 AMB Questionnaire SHENA-7 Date SHENA - 7 assessed: 07/09/24 Feeling nervous, anxious, or on edge: 0 = Not at all Not being able to stop or control worryin = Not at all Worrying too much about different things: 0 = Not at all Trouble relaxin = Not at all Being so restless that it is hard to sit still: 0 = Not at all Becoming easily annoyed or irritable: 0 = Not at all Feeling afraid as if something awful might happen: 0 = Not at all Total SHENA-7 score (0-4 normal; 5-9 mild; 10-14 moderate; 15-21 severe): 0 Source: Developed by Drs. Jaime Rodriguez, Brittani Wing, Raj Del Rosario and colleagues, with an educational ender from [employer]. SHENA-7 Assessment Billing SHENA-7 Assessment Tool: SHENA-7 Assessment 00221 Physical exam (Primary Care) Vital Signs: Last Vital Signs Temp 98.4 F 07/09/24 15:00 Pulse 55 07/09/24 15:00 Resp 20 07/09/24 15:00 BP 122/72 07/09/24 15:00 Pulse Ox 95 07/09/24 15:00 Oxygen Delivery Method Room Air 07/09/24 15:00 BMI result Body Mass Index 31.6 Tobacco/Smoking Status: Tobacco use Status Tobacco use date assessed 07/09/24 07/09/24 15:02 Patient Tobacco Use Status Current everyday Tobacco 07/09/24 15:02 Tobacco use type Cigarette 07/09/24 15:02 e-Cigarette/Vaping Use Never Used 07/09/24 15:02 PHQ-9: PHQ-9 Score PHQ-9: Total score 5 07/09/24 15:17 Depression Screening Interpretation: Negative Thrive Assessment: Date of Thrive Assessment Date Thrive assessed 07/09/24 07/09/24 15:03 Currently or been in a relationship where the following occur: No concerns reported Results AMB Hemoglobin A1c AMB Hemoglobin A1c 5.8 % Last Edit by BALTAZAR Cannon on 07/09/24 15:17 Results Reviewed Results Reviewed: Laboratory Last Values Hgb A1c (Clinic) 5.8 % (4.0-6.0) 07/09/24 15:11 Coding Level of Care Code Est Pt Prev Care >65y(25553) Diagnoses Left knee pain M25.562 Diabetes E11.9 Encounter for routine adult physical exam with abnormal findings Z00.01 B12 deficiency E53.8 Additional Codes SHENA-7 Assessment Billing - SHENA-7 Assessment Tool: SHENA-7 Assessment 75018 ([id number]) PHQ-9 - 44430 - PHQ-9 Billing: Yes ([id number]) Assessment & Plan Assessment & Plan (1) Left knee pain: Code(s): M25.562 - Pain in left knee Category: Medical (2) Diabetes: Code(s): E11.9 - Type 2 diabetes mellitus without complications Category: Medical (3) Encounter for routine adult physical exam with abnormal findings: Code(s): Z00.01 - Encounter for general adult medical examination with abnormal findings Category: Medical (4) B12 deficiency: Code(s): E53.8 - Deficiency of other specified B group vitamins Category: Medical Plan . Orders: Orders AMB Hemoglobin A1c Today Z13.9 - Encounter for screening, unspecified Complete Blood Count Auto Diff Today E11.9 - Type 2 diabetes mellitus without complications Comprehensive [place]. Panel Fast Today E11.9 - Type 2 diabetes mellitus without complications UA CC w/rflx Micro + Cult Today E11.9 - Type 2 diabetes mellitus without complications Lipid Panel Today E11.9 - Type 2 diabetes mellitus without complications TSH reflex Free T4 Today E11.9 - Type 2 diabetes mellitus without complications XR knee LT 2V Today M25.562 - Pain in left knee MM screening mammo BI Today Z12.31 - Encounter for screening mammogram for malignant neoplasm of breast Vitamin B12 and Folate Today E53.8 - Deficiency of other specified B group vitamins Referrals Orthopedics Referral M25.562 - Pain in left knee
== END 2024-07-09 15:42 | disposition home or self-care (01) ==
LOC: HO.HMCC 14:59
PROVIDERS: PCP Nurse Practitioner Family; Visit Provider Nurse Practitioner Family
DX: M25.562 Pain in left knee (principal); E11.9 Type 2 diabetes mellitus without complications; Z00.01 Encounter for general adult medical examination with abnormal findings; E53.8 Deficiency of other specified B group vitamins; Z13.9 Encounter for screening, unspecified

== ENCOUNTER → 2024-07-09 15:33 | Outpatient (BNV) | payer MEDICARE, MEDICAID, SELFPAY | PROVIDERS: PCP Nurse Practitioner Family; Visit Provider Radiology Diagnostic Radiology | DX: M25.462 Effusion, left knee (principal) | CPT/HCPCS: 73564 ==

== ENCOUNTER 2024-08-03 19:39 | Emergency (ER) | payer MEDICARE, MEDICAID, SELFPAY ==
--- NOTE | ~2024-08-03 | XR_ITS ---
CLINICAL HISTORY: pain 3 view right foot Comparison: None Findings: No acute fracture. Mild osteophytes along the dorsum of the foot. No ankle effusion. No radiopaque foreign body. Mildly diffuse soft tissue swelling. Accessory ossicles adjacent to the navicula. Enthesophytes of the Achilles tendon insertion. Mildly diffuse soft tissue swelling. IMPRESSION: No acute fracture. This document has been electronically signed by: David Toney MD on 08/03/2024 21:32:46
--- NOTE | ~2024-08-03 | XR_ITS ---
CLINICAL HISTORY: pain 3 view right ankle Comparison: None Findings: No acute fracture. Mild degenerative changes of the ankle mortise. Enthesophytes of the Achilles tendon insertion. Mild osteophytes along the dorsum of the foot. Mildly prominent os trigonum. No ankle effusion. No radiopaque foreign body. Lateral ankle soft tissue swelling. IMPRESSION: No acute fracture. This document has been electronically signed by: David Tnoey MD on 08/03/2024 21:35:05
[2024-08-03 19:45] VITALS: BP 100/61; PULSE 68; RESP 16; TEMP 36.7; O2SAT 98; BMI 24.2
[2024-08-03 19:57] VITALS: BP 132/71; PULSE 72; RESP 16; TEMP 36.8; O2SAT 94
[2024-08-03 20:01] VITALS: BP 121/56; PULSE 76; RESP 18; TEMP 36.5; O2SAT 96; BMI 26.1
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
--- NOTE | 2024-08-03 21:33 | PC.NURSE ---
pt wheeled self out to [place] can't i just have someone wrap my foot and give me crutches this rn confirmed that xrays had not yet come back yet pt wheeled back to room to await results of xrays and disposition
[2024-08-03] MEDS: Bacitracin Oint 0.9 GM PACKET 1 APPL TOPICAL (22:01)
[2024-08-03 22:03] VITALS: BP 121/56; PULSE 76; RESP 18; TEMP 36.5; O2SAT 96
== END 2024-08-03 22:09 | disposition home or self-care (01) ==
PROVIDERS: Emergency Provider Internal Medicine; PCP Nurse Practitioner Family
DX: S93.401A Sprain of unspecified ligament of right ankle, initial encounter (principal); X58.XXXA Exposure to other specified factors, initial encounter; Y93.9 Activity, unspecified; Y92.9 Unspecified place or not applicable; Y99.9 Unspecified external cause status; M79.671 Pain in right foot
CPT/HCPCS: 73610; 73630; 99283; 99284

== ENCOUNTER → 2024-08-03 20:07 | Outpatient (BNV) | payer MEDICARE, MEDICAID, SELFPAY | PROVIDERS: Emergency Provider Internal Medicine; PCP Nurse Practitioner Family; Visit Provider Radiology Diagnostic Radiology | DX: M25.571 Pain in right ankle and joints of right foot (principal); M79.671 Pain in right foot | CPT/HCPCS: 73610; 73630 ==

== ENCOUNTER 2024-08-08 10:47 | Outpatient (AMB) | payer MEDICAID, SELFPAY ==
[2024-08-08 11:06] VITALS: BP 130/70; PULSE 55; O2SAT 96; BMI 26.6
--- NOTE | 2024-08-08 11:06 | MHC.OFFVIS ---
Vital Signs 08/08/24 11:06 Height 5 ft 6 in Weight 165 lb BMI 26.6 BP 130/70 Blood Pressure Location Lt brachial Position Sitting Pulse 55 Pulse Source Pulse Oximeter Pulse Oximetry (%) 96 Oxygen Delivery Method Room Air Intake Visit Reasons: COPD Intake Note: pt is here for follow up and states her breathing and has some coughing Medicaid Service Coordinator Required: No Allergies aspirin [Aspirin] Allergy (Severe, Verified 08/08/24 11:23) ANAPHYLAXIS codeine [Codeine] Allergy (Intermediate, Verified 08/08/24 11:23) SHORTNESS OF BREATH, sob Penicillins Allergy (Intermediate, Verified 08/08/24 11:23) rash phenytoin Allergy (Intermediate, Verified 08/08/24 11:23) SHORTNESS OF BREATH,hives shrimp Allergy (Mild, Verified 08/08/24 11:23) ITCHY, anaphylaxis adhesive tape [ADHESIVE TAPE] Allergy (Unknown, Verified 08/08/24 11:23) RASH Medication List - Last Reconciled 08/08/24 by Cynthia Ga MD atorvastatin 40 mg PO DAILY cholecalciferol (vitamin D3) 25 mcg PO DAILY 90 days citalopram 40 mg PO DAILY clopidogrel 75 mg PO DAILY cyclobenzaprine 10 mg PO BEDTIME PRN 30 days famotidine 40 mg PO DAILY 90 days ferrous sulfate 325 mg PO DAILY folic acid 1 mg PO DAILY 90 days FreeStyle Niyah 2 Lyman (flash glucose scanning reader) daily use NS FreeStyle Niyah 2 Sensor (flash glucose sensor) daily use NS gabapentin 600 mg PO TID 90 days lisinopril 2.5 mg PO DAILY 90 days lorazepam 1 mg PO BID PRN 30 days mecobalamin (vitamin B12) 1,000 mcg sublingual DAILY 90 days metoprolol tartrate 50 mg PO BID montelukast 10 mg PO DAILY 90 days tramadol 50 mg PO BEDTIME trazodone 100 mg PO DAILY PRN 30 days Do you need a note to return to daycare/school/sports/work: No HPI HPI COPD: Details: Laura is now 68 years old, lifelong smoker, now down to about 5 cigarettes a day, does not planned to quit completely. She is being followed for mild degree of COPD, and chronic nasal allergies. Denies any significant shortness of breath or wheezing but does have mild intermittent cough. The nasal congestion which flares up once in a while is mostly minimal and she has to use OTC nasal spray such as Flonase. She does stay on montelukast 10 mg daily to control the allergies. [facility] Medical History Post laminectomy syndrome History of TIA (transient ischemic attack) Vascular dementia Diabetes Dyslipidemia Fatty liver COPD (chronic obstructive pulmonary disease) Asthma Nicotine dependence, cigarettes, uncomplicated Allergic rhinitis Cough Esophageal stenosis B12 deficiency Vitamin D deficiency Osteopenia Left sided sciatica Surgical History S/P insertion of spinal cord stimulator History of Estevan fundoplication History of appendectomy History of hysterectomy History of esophagogastroduodenoscopy (EGD) History of colonoscopy History of arthroscopic knee surgery History of removal of cyst Family History Father Cirrhosis Brain cancer Mother No problems noted. Social History Housing: House Patient Tobacco Use Status: Current everyday Tobacco user Tobacco use type: Cigarette Cigarette Packs Per Day: 0.5 Cigarettes Per Day: 5 Years Smoked: (onset 13yo, 1ppd x 54yrs, now 1/4ppd, 40PYH) e-Cigarette/Vaping Use: Never Used Second Hand Smoke Exposure: No service: No Current occupational status: retired and disabled Cognitive needs: No Hearing needs: No Vision needs: Yes Review of Systems Const All systems reviewed & are unremarkable except as noted in HPI and below Eyes Reports no additional complaints ENT Reports vertigo, Reports dizziness (Nonspecific off and on.) and Reports nasal congestion (Mild intermittent) Card Denies chest pain, Denies irregular heart rhythm and Denies leg edema Resp Reports as per HPI GI Reports heartburn (CONTROLLED WITH FAMOTIDINE) Reports no additional complaints Musc Reports no additional complaints Skin/Breast Reports system reviewed and no additional complaints, except as documented Neuro Reports vertigo and Reports dizziness (Nonspecific off and on.) Psych Reports no additional complaints and Reports anxiety (HAS TO USE LORAZEPAM 1 MG P.R.N..) Physical Exam Vital Signs: Last Vital Signs Pulse 55 08/08/24 11:06 BP 130/70 08/08/24 11:06 Pulse Ox 96 08/08/24 11:06 Oxygen Delivery Method Room Air 08/08/24 11:06 BMI result Body Mass Index 26.6 Const General: healthy appearing (Slightly pale looking), comfortable, no acute distress, alert and awake Orientation/consciousness: patient oriented x3 HEENT Head: Yes normal to inspection General nose exam: No nasal polyps present and No nasal discharge present Face and sinus: Yes sinuses nontender Mouth: oropharynx normal Throat: Yes posterior oropharynx normal Eyes General: appearance normal, both eyes and all related structures Neck Neck: Yes normal visual inspection, Yes no lymphadenopathy, Yes trachea midline and Yes no JVD Thyroid: Thyroid normal Chest Chest palpation & inspection: normal inspection of the chest, normal palpation of entire chest wall and no tenderness Resp Other: Percussion note is resonant, breath sounds are distant with prolonged expiratory phase but equal on both sides No wheezes rhonchi or Creps were heard. Cardio Palpation: normal PMI Rate: regular rate Rhythm: regular rhythm Heart sounds: no gallops and no murmurs GI Palpation (GI): Soft to palpation, nontender, No hepatosplenomegaly present and no masses Auscultation: normal bowel sounds Back/Spine/Pelvis Thoracic/Lumbar Spine: thoracic and lumbar spine normal to inspection and thoraco-lumbar ROM limited Skin General skin exam: no rashes or lesions noted Neuro General: patient oriented x3 and no focal motor deficits Cranial nerves: Yes CN's II-XII intact bilaterally Extrem General: Yes normal to inspection, Yes no clubbing, cyanosis or edema and Yes no calf tenderness Psych Appearance: grossly normal and well kempt Speech and movement: Normal speech and movement present Assessment & Plan Assessment & Plan (1) COPD (chronic obstructive pulmonary disease): Comment: (Treated for Mild Bronchial Asthma/COPD in past - normal spiromety) in 2022 Code(s): J44.9 - Chronic obstructive pulmonary disease, unspecified Category: Medical Plan: [place] : ADVISED TO USE ALBUTEROL HFA 2 PUFFS Q 6 HOURS ONLY P.R.N.. (2) Cough: Comment: (mild chronic cough - related to smoking) Code(s): R05 - Cough Category: Medical Plan: Explained to her that her cough is mostly related to smoking. (3) Nicotine dependence, cigarettes, uncomplicated: Comment: (smoker - onset 13yo, 1ppd x 54yrs, now 1/4ppd, 40PYH) Discussed with her about smoking again today., he is keeping it limited to about 5 cigarettes a day, does not show any motivation to quit completely. Code(s): F17.210 - Nicotine dependence, cigarettes, uncomplicated Category: Medical Plan: Advised to continue in the lung screening program. (4) Allergic rhinitis: Comment: (Chronic/Mild/WellControlled Perineal Allergic/Vasomotor Rhinitis) Code(s): J30.9 - Allergic rhinitis, unspecified Category: Medical Plan: [place] : Montelukast 10 MG Daily, and over the counter allergy agent such as Lotatidine 10mg PRN Coding Level of Care Code Est Pt Level 3 (97655) Diagnoses COPD (chronic obstructive pulmonary disease) J44.9 Cough R05 Nicotine dependence, cigarettes, uncomplicated F17.210 Allergic rhinitis J30.9
--- OUTSIDE RECORDS SUMMARY | 2024-08-08 12:40 | XMS_ITS | Patient Health Record ---
Author Organization [facility] Address [address] [place] [address] Care Team Providers Care Veterinary Toxicologist Name Role Phone AMBER PEGUERO Primary Care Provider Paola Quintero Unavailable [phone] Allergies Allergen (clinical drug ingredient) Drug/Non Drug Allergy documented on EMR Reaction Allergy Type Onset Date Status Codeine Phosphate Unknown Drug Allergy Active aspirin Aspirin Unknown Drug Allergy Active opioid, analgesics (uncoded) Unknown Allergy Active Shellfish (FN) shrimp (uncoded) Unknown Allergy Active adhesive tape (uncoded) Unknown Allergy Active Penicillin Unknown Drug Allergy Active phenytoin Dilantin Unknown Drug Allergy Active Reason For Referral [...] Problem Status W/U Status Risk Notes Problem 50679264 Epigastric abdominal pain (R10.13) Active confirmed Problem 875342063 Gastro-esophagea l reflux disease without esophagitis (K21.9) Active confirmed Problem 741495018 Encounter for screening for malignant neoplasm of colon (Z12.11) Active confirmed Problem 749846470 Gastroparesis (K31.84) Active confirmed Problem 02625561 Irritable bowel syndrome without diarrhea (K58.9) Active confirmed Problem 605971984 Other constipati on (K59.09) Active confirmed Problem Iron deficiency anemia (83221738) Iron deficiency anemia (D50.9) Active confirmed Problem 379073886 Gastroesophageal reflux disease, esophagitis presence not specified (K21.9) Active confirmed Problem Abnormal feces (818310005) Heme + stool (R19.5) Active confirmed Problem Gastritis (4300697) Gastritis (K29.70) Active confirmed Problem 556295758 Abdominal pain, generalized (R10.84) Active confirmed Problem 852165307 Irritable bowel syndrome with constipation (K58.1) Active confirmed Problem Diverticulosis of colon (049345531) Diverticulosis of colon (K57.30) Active confirmed Problem Folate deficiency (936280631) Folate deficiency (E53.8) Active confirmed Plan Of [...] Insured Coverage Start Date Coverage End Date [facility] [address] [address] [place], [place] [id number] GARYISAAC ESPINALILA Self - patient is the [...] hearing aids She denies any history of [place] She reports a history of a CVA [...]
== END 2024-08-08 11:23 | disposition home or self-care (01) ==
LOC: HO.HPS 10:48
PROVIDERS: PCP Nurse Practitioner Family; Visit Provider Internal Medicine
DX: J44.9 Chronic obstructive pulmonary disease, unspecified (principal); R05.9 Cough, unspecified; F17.210 Nicotine dependence, cigarettes, uncomplicated; J30.9 Allergic rhinitis, unspecified
CPT/HCPCS: 99213

== ENCOUNTER → 2024-08-08 10:47 | Outpatient (BNVA) | payer MEDICAID, SELFPAY | PROVIDERS: PCP Nurse Practitioner Family; Visit Provider Internal Medicine | DX: J44.9 Chronic obstructive pulmonary disease, unspecified (principal); J30.9 Allergic rhinitis, unspecified; F17.210 Nicotine dependence, cigarettes, uncomplicated; Z79.899 Other long term (current) drug therapy | CPT/HCPCS: 99212 ==

== ENCOUNTER 2024-08-14 07:46 | Outpatient (AMB) | payer MEDICARE, MEDICAID, SELFPAY ==
--- NOTE | 2024-08-14 07:48 | A.OFFVIS_ITS ---
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 She describes her discomfort as achy in nature. Her symptoms have gotten somewhat worse over the last 9 months. She also reports intermittent giving way. She has tried a home exercise program, Tylenol and anti-inflammatory medicines. Most of the pain is along the medial aspect of her knee. Allergies aspirin [Aspirin] Allergy (Severe, Verified 08/08/24 11:23) ANAPHYLAXIS codeine [Codeine] Allergy (Intermediate, Verified 08/08/24 11:23) SHORTNESS OF BREATH, sob Penicillins Allergy (Intermediate, Verified 08/08/24 11:23) rash phenytoin Allergy (Intermediate, Verified 08/08/24 11:23) SHORTNESS OF BREATH,hives shrimp Allergy (Mild, Verified 08/08/24 11:23) ITCHY, anaphylaxis adhesive tape [ADHESIVE TAPE] Allergy (Unknown, Verified 08/08/24 11:23) RASH Medication List - Last Reconciled 08/14/24 by Ayush Pastrana MD atorvastatin 40 mg PO DAILY cholecalciferol (vitamin D3) 25 mcg PO DAILY 90 days citalopram 40 mg PO DAILY clopidogrel 75 mg PO DAILY cyclobenzaprine 10 mg PO BEDTIME PRN 30 days famotidine 40 mg PO DAILY 90 days ferrous sulfate 325 mg PO DAILY folic acid 1 mg PO DAILY 90 days FreeStyle Niyah 2 [place] (flash glucose scanning reader) daily use NS FreeStyle Niyah 2 Sensor (flash glucose sensor) daily use NS gabapentin 600 mg PO TID 90 days lisinopril 2.5 mg PO DAILY 90 days lorazepam 1 mg PO BID PRN 30 days mecobalamin (vitamin B12) 1,000 mcg sublingual DAILY 90 days metoprolol tartrate 50 mg PO BID montelukast 10 mg PO DAILY 90 days tramadol 50 mg PO BEDTIME trazodone 100 mg PO DAILY PRN 30 days [facility] Medical History Post laminectomy syndrome History of TIA (transient ischemic attack) Vascular dementia Diabetes Dyslipidemia Fatty liver COPD (chronic obstructive pulmonary disease) Asthma Nicotine dependence, cigarettes, uncomplicated Allergic rhinitis Cough Esophageal stenosis B12 deficiency Vitamin D deficiency Osteopenia Left sided sciatica Surgical History S/P insertion of spinal cord stimulator History of Estevan fundoplication History of appendectomy History of hysterectomy History of esophagogastroduodenoscopy (EGD) History of colonoscopy History of arthroscopic knee surgery History of removal of cyst Family History Father Cirrhosis Brain cancer Mother No problems noted. Social History Housing: House Patient Tobacco Use Status: Current everyday Tobacco user Tobacco use type: Cigarette Cigarette Packs Per Day: 0.5 Cigarettes Per Day: 5 Years Smoked: (onset 13yo, 1ppd x 54yrs, now 1/4ppd, 40PYH) e-Cigarette/Vaping Use: Never Used Second Hand Smoke Exposure: No service: No Current occupational status: retired and disabled Cognitive needs: No Hearing needs: No Vision needs: Yes Physical Exam Vital Signs: BMI result Body Mass Index 31.2 Const Other: Well-nourished well-developed very friendly female awake alert and oriented x3 in no acute distress Extrem Other: Bilateral lower extremity examination shows good capillary refill, no skin lesions noted, normal sensation light touch Left knee examination shows a minimal effusion, mild crepitus with range of motion, tenderness along her medial joint line, positive Destinee's test, no instability Results Reviewed Results Reviewed: X-rays of the patient's left knee show mild diffuse joint space narrowing, no acute bony abnormalities Assessment & Plan Assessment & Plan (1) Left knee pain: Code(s): M25.562 - Pain in left knee Category: Medical Plan Ms. Ponce presents with left knee pain and mechanical symptoms most likely due to a medial meniscus tear. I had a lengthy discussion with the patient regarding the treatment options. I did give the patient a prescription to go to formal physical therapy. If the patient's symptoms do not improve with formal physical therapy I will order an MRI of her left knee to further evaluate the status of her medial meniscus. Feel free to call me at any time should questions regarding her orthopedic management arise. Thank you very much for asking me to see this very friendly patient. I spent 21 minutes in reviewing the patient's records and imaging studies, seeing the patient and documenting in the medical record. Orders: Orders PT Evaluation and Treatment Today M25.562 - Pain in left knee Coding Level of Care Code New Pt Level 3 (94337) Complex EM visit Add On G2211 Diagnoses Left knee pain M25.562
[2024-08-14 07:53] VITALS: BMI 31.2
== END 2024-08-14 08:08 | disposition home or self-care (01) ==
LOC: HO.HOS 07:47
PROVIDERS: PCP Nurse Practitioner Family; Visit Provider Orthopaedic Surgery
DX: M25.562 Pain in left knee (principal)
CPT/HCPCS: 99203; G2211

== ENCOUNTER → 2024-08-14 07:46 | Outpatient (BNVA) | payer MEDICARE, MEDICAID, SELFPAY | PROVIDERS: PCP Nurse Practitioner Family; Visit Provider Orthopaedic Surgery | DX: M25.562 Pain in left knee (principal) | CPT/HCPCS: 99202 ==

== ENCOUNTER 2024-09-02 09:55 | Outpatient (REF) | payer MEDICARE, MEDICAID, SELFPAY ==
--- NOTE | ~2024-09-02 | CT_ITS ---
CLINICAL HISTORY: F17.210 - Nicotine dependence, cigarettes, uncomplicated CT lung cancer screening (LDCT) Comparison: CT/SD/SR - CT LUNG SCREENING - 08/11/23 10:38 EDT Technique: Axial CT images of the chest using low-dose technique. Referring provider counseled the patient on shared decision-making for LDCT screening. Additional counseling was provided on smoking cessation. Effective radiation dose total: DLP 36.5 mGycm, CTDIvol 1.2 mGy. Findings: Lung: Mild emphysema. Stable 3 mm pulmonary nodule of the right middle lobe series 4, image 65. Coronary artery calcifications: Mild Limited upper abdomen: Unremarkable Other: Spinal stimulator. Impression: LungRADS 2 - Benign Appearance: Continue annual screening with low dose Chest CT in 12 months. ##L2# Category 1: Normal; continue annual screening Category 2: Benign appearance or behavior, continue annual screening Category 3: Probably benign, [address] recommended Category 4A: Suspicious, [address] recommended; may consider PET/CT Category 4B: Suspicious, Additional diagnostics and/or tissue sampling recommended Category 4X: Suspicious, Additional diagnostics and/or tissue sampling recommended Category 0: Recalls (incomplete screen due to Incomplete coverage, Noise, Respiratory motion, Expiration, Obscured by acute abnormality) This document has been electronically signed by: Rich Brooke MD on 09/02/2024 14:07:54
--- OUTSIDE RECORDS SUMMARY | 2024-09-02 10:18 | XMS_ITS | Patient Health Record ---
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 Name Role Phone AMBER PEGUERO Primary Care Provider Paola Quintero Unavailable [phone] Allergies Allergen (clinical drug ingredient) Drug/Non Drug [...] Problem Status W/U Status Risk Notes Problem 72706920 Epigastric abdominal pain (R10.13) Active confirmed Problem 378100149 Gastro-esophagea l reflux disease without esophagitis (K21.9) Active confirmed Problem 985036295 Encounter for screening for malignant neoplasm of colon (Z12.11) Active confirmed Problem 236411260 Gastroparesis (K31.84) Active confirmed Problem 21570801 Irritable bowel syndrome without diarrhea (K58.9) Active confirmed Problem 476344011 Other constipati on (K59.09) Active confirmed Problem Iron deficiency anemia (40462990) Iron deficiency anemia (D50.9) Active confirmed Problem 428184656 Gastroesophageal reflux disease, esophagitis presence not specified (K21.9) Active confirmed Problem Abnormal feces (498387172) Heme + stool (R19.5) Active confirmed Problem Gastritis (5868338) Gastritis (K29.70) Active confirmed Problem 821635157 Abdominal pain, generalized (R10.84) Active confirmed Problem 144468316 Irritable bowel syndrome with constipation (K58.1) Active confirmed Problem Diverticulosis of colon (852241623) Diverticulosis of colon (K57.30) Active confirmed Problem Folate deficiency (947569012) Folate deficiency (E53.8) Active confirmed Plan Of [...] Insured Coverage Start Date Coverage End Date [facility] [address] [address] [place], [place] [id number] [phone] [id number] GARYISAAC ESPINALILA Self - patient is the [...] hearing aids She denies any history of [place] She reports a history of a CVA [...]
== END 2024-09-02 09:56 | disposition home or self-care (01) ==
LOC: HO.CT 09:55
PROVIDERS: PCP Nurse Practitioner Family; Visit Provider Physician Assistant Medical
DX: Z12.2 Encounter for screening for malignant neoplasm of respiratory organs (principal); F17.210 Nicotine dependence, cigarettes, uncomplicated
CPT/HCPCS: 71271

== ENCOUNTER → 2024-09-02 09:57 | Outpatient (BNV) | payer MEDICARE, MEDICAID, SELFPAY | PROVIDERS: PCP Nurse Practitioner Family; Visit Provider Nuclear Medicine | DX: F17.210 Nicotine dependence, cigarettes, uncomplicated (principal) | CPT/HCPCS: 71271 ==

== ENCOUNTER 2024-11-08 19:49 | Outpatient (REF) | payer MEDICARE, MEDICAID, SELFPAY | END 2024-11-08 19:50 | disposition home or self-care (01) | LOC: HO.MRI 19:49 | PROVIDERS: PCP Nurse Practitioner Family; Visit Provider Orthopaedic Surgery | DX: Z13.89 Encounter for screening for other disorder (principal) ==

== ENCOUNTER 2024-11-18 17:43 | Outpatient (REF) | payer MEDICARE, MEDICAID, SELFPAY ==
--- OUTSIDE RECORDS SUMMARY | 2024-11-18 17:46 | XMS_ITS | Patient Health Record ---
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 Automotive Electrician Name Role Phone AMBER PEGUERO Primary Care Provider Paola Quintero Unavailable [phone] Allergies Allergen (clinical drug ingredient) Drug/Non Drug [...] Problem Status W/U Status Risk Notes Problem 43739791 Epigastric abdominal pain (R10.13) Active confirmed Problem 027616763 Gastro-esophagea l reflux disease without esophagitis (K21.9) Active confirmed Problem 893599496 Encounter for screening for malignant neoplasm of colon (Z12.11) Active confirmed Problem 548310420 Gastroparesis (K31.84) Active confirmed Problem 70017030 Irritable bowel syndrome without diarrhea (K58.9) Active confirmed Problem 092166064 Other constipati on (K59.09) Active confirmed Problem Iron deficiency anemia (81072683) Iron deficiency anemia (D50.9) Active confirmed Problem 352003347 Gastroesophageal reflux disease, esophagitis presence not specified (K21.9) Active confirmed Problem Abnormal feces (719876155) Heme + stool (R19.5) Active confirmed Problem Gastritis (7443978) Gastritis (K29.70) Active confirmed Problem 030636209 Abdominal pain, generalized (R10.84) Active confirmed Problem 518257910 Irritable bowel syndrome with constipation (K58.1) Active confirmed Problem Diverticulosis of colon (830165085) Diverticulosis of colon (K57.30) Active confirmed Problem Folate deficiency (703208119) Folate deficiency (E53.8) Active confirmed Plan Of [...] Insured Coverage Start Date Coverage End Date [facility] [address] [address] [place], [place] [id number] GARYISAAC ESPINALILA Self - patient is the [...]
== END 2024-11-18 17:44 | disposition home or self-care (01) ==
LOC: HO.MRI 17:43
PROVIDERS: PCP Nurse Practitioner Family; Visit Provider Orthopaedic Surgery
DX: Z13.89 Encounter for screening for other disorder (principal)

== ENCOUNTER 2025-01-24 12:02 | Outpatient (AMB) | payer MEDICARE, MEDICAID, SELFPAY ==
--- NOTE | 2025-01-24 12:04 | A.OFFPC_ITS ---
Vital Signs 01/24/25 12:06 Height 5 ft 1 in Weight 159 lb BMI 30.0 BP 130/70 Blood Pressure Location Rt brachial Position Sitting Pulse 51 Pulse Source Pulse Oximeter Pulse Oximetry (%) 99 Oxygen Delivery Method Room Air Intake Visit Reasons: 6m follow up DM Allergies aspirin (Aspirin) Allergy (Severe, Verified 01/24/25 12:06) ANAPHYLAXIS codeine (Codeine) Allergy (Intermediate, Verified 01/24/25 12:06) SHORTNESS OF BREATH, sob Penicillins Allergy (Intermediate, Verified 01/24/25 12:06) rash phenytoin Allergy (Intermediate, Verified 01/24/25 12:06) SHORTNESS OF BREATH,hives shrimp Allergy (Mild, Verified 01/24/25 12:06) ITCHY, anaphylaxis adhesive tape (ADHESIVE TAPE) Allergy (Unknown, Verified 01/24/25 12:06) RASH Medication List - Last Reconciled 01/24/25 by Alverto Barragan MD atorvastatin 40 mg PO DAILY cholecalciferol (vitamin D3) 25 mcg PO DAILY 90 days citalopram 40 mg PO DAILY clopidogrel 75 mg PO DAILY cyclobenzaprine 10 mg PO BEDTIME PRN 30 days famotidine 40 mg PO DAILY 90 days ferrous sulfate 325 mg PO DAILY folic acid 1 mg PO DAILY 90 days FreeStyle Niyah 2 [place] (flash glucose scanning reader) daily use NS FreeStyle Niyah 2 Sensor (flash glucose sensor) daily use NS gabapentin 600 mg PO TID 90 days lisinopril 2.5 mg PO DAILY 90 days lorazepam 1 mg PO BID PRN 30 days mecobalamin (vitamin B12) 1,000 mcg sublingual DAILY 90 days metoprolol tartrate 50 mg PO BID montelukast 10 mg PO DAILY 90 days tramadol 50 mg PO BEDTIME trazodone 100 mg PO DAILY PRN 30 days Tobacco use date assessed: 07/09/24 Fall risk assessment: No Falls in past year Last assessed Fall Risk: 01/24/25 Dental Screening Dental Screen Date: 07/09/24 HPI 6m follow up DM HPI Details History of Present Illness The patient is a 69-year-old female presenting with diabetes, chronic lower back pain, and other chronic conditions. Diabetes Mellitus: - History of diabetes with a current A1c of 6.0, which is a good control level. - The patient does not monitor blood glu cose levels regularly and does not perform self-checks. Chronic Lower Back Pain: - Persistent back pain originating since her 20s. - The patient has a spinal stimulator; h owever, it has been ineffective in alleviating her pain. - Reports that the current pain medicati on (Tramadol) is insufficient for pain relief. - I feel that she has gotten used to it, sometimes it is advisable to taper off the medication to see if it is helping or not Hyperlipidemia: - Currently managed with atorvastatin 40 mg. Depression: - Managed with citalopram 40 mg. Neuropathic Pain: - Management with gabapentin 600 mg. COPD (mild): - Previous notes indicate mild COPD diag nosis, though patient denies having COPD. - Smoking history since age 13, approxim ately half to one pack per day. And has no intention to stop - patient is established with air quality instrument specialist Dr. Ga. Fatty Liver: - Previous diagnosis of fatty liver. - Expressed interest in understanding ho w to manage or reduce liver fat. We talked about dietary management today how to count calories and how much calories to consume Patient is not able to exercise due to her chronic back pain Medical History: - Type 2 Diabetes Mellitus - Chronic lower back pain with spinal st imulator in place - Hyperlipidemia - Depression - Diabetic neuropathy - Mild Chronic Obstructive Pulmonary Dis ease (COPD) - Fatty liver disease Surgical History: - Implantation of a spinal stimulator fo r lower back pain Medications: - Atorvastatin 40 mg for hyperlipidemia - Vitamin D supplement - Citalopram 40 mg for depression - Tramadol 50 mg for pain management - Gabapentin 600 mg for neuropathy - Lorazepam 1 mg BID - Metoprolol 50 mg - Montelukast 10 mg - Trazodone 100 mg - Famotidine 40 mg - Iron supplement Problem List - Type 2 Diabetes Mellitus - Chronic lower back pain - Hyperlipidemia - Depression - Neuropathy - Mild Chronic Obstructive Pulmonary Dis ease (COPD) - Fatty liver disease Review of Systems - General: No fever no chills - Neurological: No headaches no dizziness - Ear nose throat: No sore throat no hearing difficulty no ear pain - Cardiovascular: No syncope, no chest pain, no palpitations - Gastrointestinal: No nausea vomiting or diarrhea - Endocrine: No polyuria polydipsia no heat intolerance - Genitourinary: No dysuria , no blood in urine Physical Exam - General: No acute distress - HEENT: No acute findings - Neck: Supple - Respiratory system: Able to talk in f ull sentences, no audible wheeze - Cardiovascular: S1-S2 regular in rate and rhythm - Gastrointestinal: No pain - Extremities: No new findings - 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 awake oriented x3 motor in tact - Skin: Normal turgor PFSH Medical History Post laminectomy syndrome History of TIA (transient ischemic attack) Vascular dementia Diabetes Dyslipidemia Fatty liver COPD (chronic obstructive pulmonary disease) Asthma Nicotine dependence, cigarettes, uncomplicated Allergic rhinitis Cough Esophageal stenosis B12 deficiency Vitamin D deficiency Osteopenia Left sided sciatica Surgical History S/P insertion of spinal cord stimulator History of Estevan fundoplication History of appendectomy History of hysterectomy History of esophagogastroduodenoscopy (EGD) History of colonoscopy History of arthroscopic knee surgery History of removal of cyst Family History Father Cirrhosis Brain cancer Mother No problems noted. Social History Housing: House Patient Tobacco Use Status: Current everyday Tobacco user Tobacco use type: Cigarette Cigarette Packs Per Day: 0.5 Cigarettes Per Day: 5 Years Smoked: (onset 13yo, 1ppd x 54yrs, now 1/4ppd, 40PYH) e-Cigarette/Vaping Use: Never Used Second Hand Smoke Exposure: No service: No Current occupational status: retired and disabled Cognitive needs: No Hearing needs: No Vision needs: Yes Questionnaire PHQ-9 Over the last 2 weeks, how often have you been bothered by any of the following problems? 1. Little interest or pleasure in doing things: not at all 2. Feeling down, depressed, or hopeless: not at all 3. Trouble falling or staying asleep, or sleeping too much: several days 4. Feeling tired or having little energy: several days 5. Poor appetite or overeating: several days 6. Feeling bad about yourself - or that you are a failure or have let yourself or your family down: several days 7. Trouble concentrating on things, such as reading the newspaper or watching television: not at all 8. Moving or speaking so slowly that other people could have noticed. Or the opposite - being so fidgety or restless that you have been moving around a lot more than usual: several days 9. Thoughts that you would be better off or of hurting yourself in some way: not at all Total score: 5 Depression Screening Interpretation: Negative Depression Screening Done: Yes 44346 - PHQ-9 Billing: Yes Source: Developed by Drs. Jaime Rodriguez, Brittani Wing, Raj Del Rosario and colleagues, with an educational ender from [employer]. Thrive Questionnaire Date Thrive assessed: 07/03/24 I am a: Patient What is your living situation today?: I have a steady place to live Within the past 12 months, did the food you bought not last and you didn't have the money to get more?: I choose not to answer this question Within the past 12 months, did you worry whether your food would run out before you got money to buy more?: I choose not to answer this question Do you have trouble paying for medicines?: No Do you have trouble getting transportation to medical appointments?: No Do you have trouble paying your heating and electricity bill?: No Do you have trouble taking care of your child, family member or friend?: No Do you have trouble with day-to-day activities such as bathing, preparing meals, shopping, managing finances, etc.?: No Are you currently unemployed and looking for a job?: No Are you interested in more education?: No Please select the resources that you would like help with: None Currently or been in a relationship where the following occur: No concerns reported THRIVE Score: 0 AUDIT C Alcohol Use Questionnaire (AUDIT-C) 1. How often do you have a drink containing alcohol?: Never 2. How many drinks containing alcohol do you have on a typical day when you are drinking?: 1 or 2 3. How often do you have six or more drinks on one occasion?: Never Total Score: 0 Score Reviewed/Action Taken: Yes SHENA-7 AMB Questionnaire SHENA-7 Date SHENA - 7 assessed: 07/09/24 Feeling nervous, anxious, or on edge: 0 = Not at all Not being able to stop or control worryin = Not at all Worrying too much about different things: 0 = Not at all Trouble relaxin = Not at all Being so restless that it is hard to sit still: 0 = Not at all Becoming easily annoyed or irritable: 0 = Not at all Feeling afraid as if something awful might happen: 0 = Not at all Total SHENA-7 score (0-4 normal; 5-9 mild; 10-14 moderate; 15-21 severe): 0 Source: Developed by Drs. Jaime Rodriguez, Brittani Wing, Raj Del Rosario and colleagues, with an educational ender from [employer]. SHENA-7 Assessment Billing SHENA-7 Assessment Tool: SHENA-7 Assessment 20033 Physical exam (Primary Care) Vital Signs: Last Vital Signs Pulse 51 01/24/25 12:06 BP 130/70 01/24/25 12:06 Pulse Ox 99 01/24/25 12:06 Oxygen Delivery Method Room Air 01/24/25 12:06 BMI result Body Mass Index 30.0 Tobacco/Smoking Status: Tobacco use Status Tobacco use date assessed 07/09/24 01/24/25 12:05 Patient Tobacco Use Status Current everyday Tobacco 01/24/25 12:05 Tobacco use type Cigarette 01/24/25 12:05 e-Cigarette/Vaping Use Never Used 01/24/25 12:05 PHQ-9: PHQ-9 Score PHQ-9: Total score 5 01/24/25 12:09 Depression Screening Interpretation: Negative Thrive Assessment: Date of Thrive Assessment Date Thrive assessed 07/03/24 01/24/25 12:05 Currently or been in a relationship where the following occur: No concerns reported Results AMB Hemoglobin A1c AMB Hemoglobin A1c 6.0 % Last Edit by Miller Chandler CMA on 01/24/25 12: 20 Coding Level of Care Code Est Pt Level 4 (05906) Complex EM visit Add On G2211 Diagnoses Diabetes mellitus type 2, noninsulin dependent E11.9 Lipid disorder E78.9 Class 1 obesity due to excess calories with serious comorbidity and body mass index (BMI) of 30.0 to 30.9 in adult E66.811; E66.09; Z68.30 Obesity classification: adult class 1 (BMI 30 - 34.9) Serious obesity comorbidity presence: with serious comorbidity Body mass index: BMI 30.0-30.9 Recurrent major depressive disorder, in partial remission F33.41 Active/Remission status: in partial remission Anxiety, generalized F41.1 Pain management R52 Tobacco use disorder F17.200 Additional Codes PHQ-9 - 11333 - PHQ-9 Billing: Yes ([id number]) SHENA-7 Assessment Billing - SHENA-7 Assessment Tool: SHENA-7 Assessment 81312 ([id number]) Assessment & Plan Assessment & Plan (1) Diabetes mellitus type 2, noninsulin dependent: Code(s): E11.9 - Type 2 diabetes mellitus without complications Category: Medical (2) Lipid disorder: Code(s): E78.9 - Disorder of lipoprotein metabolism, unspecified Category: Medical (3) Obesity due to excess calories: Code(s): E66.09 - Other obesity due to excess calories Category: Medical Qualifiers: Obesity classification: adult class 1 (BMI 30 - 34.9) Serious obesity comorbidity presence: with serious comorbidity Body mass index: BMI 30.0-30.9 Qualified Code(s): E66.811 - Obesity, class 1; E66.09 - Other obesity due to excess calories; Z68.30 - Body mass index [BMI] 30.0-30.9, adult (4) Major depression, recurrent: Code(s): F33.9 - Major depressive disorder, recurrent, unspecified Category: Medical Qualifiers: Active/Remission status: in partial remission Qualified Code(s): F33.41 - Major depressive disorder, recurrent, in partial remission (5) Anxiety, generalized: Code(s): F41.1 - Generalized anxiety disorder Category: Medical (6) Pain management: Code(s): R52 - Pain, unspecified Category: Medical (7) Tobacco use disorder: Code(s): F17.200 - Nicotine dependence, unspecified, uncomplicated Category: Medical Plan Plan - Maintain current diabetic management as A1c is well-controlled at 6.0; recommend continued compliance with current medications. - Tramadol may need reevaluation due to insufficient pain control for chronic back pain. Discuss potential alternatives or adjunct therapies. - Continue atorvastatin 40 mg for hyperlipidemia management. - Continue citalopram 40 mg for depression. - Recommend regular substance use counseling for smoking cessation due to COPD history and to prevent progression. - Educate patient on the importance of weight management and dietary modifications for addressing fatty liver disease. - Recommend complete blood work to assess liver and kidney functions given last lab work is more than a year old. - Encourage patient in dietary adjustments by reducing calorie intake as instructed. Patient already have appointment in April with primary care Orders: Orders Complete Blood Count Auto Diff Today E11.9 - Type 2 diabetes mellitus without complications, E78.5 - Hyperlipidemia, unspecified, F17.210 - Nicotine dependence, cigarettes, uncomplicated Comprehensive Met. Panel Today E11.9 - Type 2 diabetes mellitus without complications, E78.5 - Hyperlipidemia, unspecified, F17.210 - Nicotine dependence, cigarettes, uncomplicated AMB Hemoglobin A1c Today Z13.9 - Encounter for screening, unspecified LDL Cholesterol Direct Today E11.9 - Type 2 diabetes mellitus without complications, E78.5 - Hyperlipidemia, unspecified, F17.210 - Nicotine dependence, cigarettes, uncomplicated TSH reflex Free T4 Today E11.9 - Type 2 diabetes mellitus without complications, E78.5 - Hyperlipidemia, unspecified, F17.210 - Nicotine dependence, cigarettes, uncomplicated Microalbumin, Random (w Creat) Today E11.9 - Type 2 diabetes mellitus without complications, E78.5 - Hyperlipidemia, unspecified, F17.210 - Nicotine dependence, cigarettes, uncomplicated
[2025-01-24 12:06] VITALS: BP 130/70; PULSE 51; O2SAT 99
== END 2025-01-24 13:15 | disposition home or self-care (01) ==
LOC: HO.HMCC 12:03
PROVIDERS: PCP Nurse Practitioner Family; Visit Provider Internal Medicine
DX: E11.9 Type 2 diabetes mellitus without complications (principal); E78.9 Disorder of lipoprotein metabolism, unspecified; E66.811 Obesity, class 1; E66.09 Other obesity due to excess calories; Z68.30 Body mass index [BMI] 30.0-30.9, adult; F33.41 Major depressive disorder, recurrent, in partial remission; F41.1 Generalized anxiety disorder; R52 Pain, unspecified; F17.200 Nicotine dependence, unspecified, uncomplicated; Z13.9 Encounter for screening, unspecified

== ENCOUNTER 2025-01-24 12:02 | Outpatient (REF) | payer MEDICARE, MEDICAID, SELFPAY ==
[2025-01-24 16:29] LABS: MANUAL DIFF FLAG NO
[2025-01-24 16:41] LABS: Hematocrit 43.1 % (37.0-47.0); Hemoglobin 14.4 g/dl (12.0-16.0); Imm Gran Abs Auto 0.01 X10*3/uL (0.00-0.03); Imm Gran Pct Auto 0.1 % (0.0-0.4); Lymphocytes Absolute Auto 1.8 X10*3/uL (1.2-4.9); Mean Corpuscular HGB Conc 33.4 g/dl (31.0-35.0); Mean Corpuscular Hemoglobin 32.3 pg (27.0-33.0); Mean Corpuscular Volume 96.6 fL (80.0-98.0); NRBC Abs Auto 0.000 X10*3/uL (0.0-0.012); NRBC Pct Auto 0.0 /100WBC (0.0-0.2); Platelet Count 201 X10*3/uL (160-400); Red Blood Count 4.46 X10*6/uL (4.20-5.50); White Blood Count 6.7 X10*3/uL (4.8-10.8)
[2025-01-24 17:10] LABS: Alanine Aminotransferase 17 U/L (0-31); Albumin Level 4.1 g/dL (3.5-5.0); Alkaline Phosphatase 57 U/L (39-117); Anion Gap 9 (12-20); Aspartate Amino Transferase 25 U/L (5-31); Blood Urea Nitrogen 8 mg/dL (9-16); Calcium 9.6 mg/dL (8.4-10.2); Carbon Dioxide 30 mmol/L (22-29); Chloride 106 mmol/L (96-108); Estimated Glomerular Filt Rate > 60; Potassium 3.8 mmol/L (3.3-5.1); Sodium 141 mmol/L (135-145); Total Protein 6.8 g/dL (6.5-8.0)
[2025-01-24 17:20] LABS: Microalbum/Creatinine Ratio Ur 17.9 ug/mg cr (<30)
== END 2025-01-24 12:03 | disposition home or self-care (01) ==
LOC: HO.HMGCLDS 12:02
PROVIDERS: PCP Nurse Practitioner Family; Visit Provider Internal Medicine
DX: E11.9 Type 2 diabetes mellitus without complications (principal); E78.5 Hyperlipidemia, unspecified; F17.210 Nicotine dependence, cigarettes, uncomplicated; E78.9 Disorder of lipoprotein metabolism, unspecified; E66.811 Obesity, class 1; E66.09 Other obesity due to excess calories; F33.41 Major depressive disorder, recurrent, in partial remission; F41.1 Generalized anxiety disorder; R52 Pain, unspecified; Z79.891 Long term (current) use of opiate analgesic; Z79.899 Other long term (current) drug therapy; Z68.30 Body mass index [BMI] 30.0-30.9, adult
CPT/HCPCS: 36415; 80053; 82043; 82570; 83036; 83721; 84443; 85025; 96127; 99212

== ENCOUNTER 2025-02-22 08:52 | Outpatient (REF) | payer MEDICARE, SELFPAY ==
--- NOTE | ~2025-02-22 | CT_ITS ---
EXAMINATION: CT KNEE WITHOUT CONTRAST, LEFT CLINICAL INFORMATION: Medial meniscal tear. COMPARISON: None available. TECHNIQUE: Axial imaging. Sagittal and coronal reconstructions. This CT examination was performed using dose optimization techniques as appropriate, variously including the following: *Automated exposure control *Adjustment of mA and/or kV according to patient size (this includes techniques or standardized protocols for targeted exams where dose is matched to indication/reason for exam; i.e. extremities or head) *Use of iterative reconstruction technique FINDINGS: Alignment is anatomic. Severe medial compartment arthritis, joint space loss, osteophytes, sclerosis. Moderate lateral and mild patellofemoral arthritis. No visible acute fracture or dislocation. No suspicious lytic or blastic lesions. Limited evaluation of the muscles and tendons of CT. The quadriceps and patellar tendon are grossly intact. There is superior patellar insertional enthesopathy. No measurable muscle tear. No significant fatty muscle atrophy is identified. Small effusion. No significant Delgado's cyst. CT/CT knee LT wo IV con IMPRESSION: *No radiographic evidence of acute fracture or dislocation. *Tricompartment osteoarthritis. Severe medial compartment arthritis. *Small effusion. Electronically signed by: Gigi Johnson MD 02/24/2025 07:56 AM EST
--- OUTSIDE RECORDS SUMMARY | 2025-02-22 08:56 | XMS_ITS | Patient Health Record ---
Author Organization [facility] Address [address] [place] [address] Care Team Providers Care Resource Analyst Name Role Phone AMBER PEGUERO Primary Care Provider Paola Quintero Unavailable [phone] Allergies Allergen (clinical drug ingredient) Drug/Non Drug Allergy documented on EMR Reaction Allergy Type Onset Date Status phenytoin Dilantin Unknown Drug Allergy Active Codeine Phosphate Unknown Drug Allergy Active aspirin Aspirin Unknown Drug Allergy Active opioid, analgesics (uncoded) Unknown Allergy Active Shellfish (FN) shrimp (uncoded) Unknown Allergy Active adhesive tape (uncoded) Unknown Allergy Active Penicillin Unknown Drug Allergy Active Reason For Referral [...] meal Orally Up tp three times a day; Duration: 30 day(s) 07/23/2021 Active Omeprazole 20 MG [...] at 5:00 p.m. the day before the procedure; Duration: 1 day 03/27/2018 Not-Taking ProAir HFA 108 [...] two tablets twice a day for one day; Duration: 1 day 03/27/2018 Not-Taking Citalopram & Diet [...] MG 1 tablet Ora lly Once a day; Duration: 30 day(s) Active Vitamin D-3 25 MCG (1000 UT) 1 capsule Orally Once a day; Duration: 30 day(s) Active Gabapentin 600 MG 1 capsule Orally Three times a day Active Metoprolol Succinate 25 MG 1 capsule Ora lly Once a day; Duration: 30 day(s) Active Atorvastatin Calcium 40 MG 1 tablet Oral ly Once a day; Duration: 30 day(s) Active Folic Acid 1 MG 1 tablet Orally Once a day; Duration: 30 day(s) 01/08/2022 Active Immunizations Vaccine Route [...] Problem Status W/U Status Risk Notes Problem Epigastric pain (22901162) Epigastric abdominal pain (R10.13) Active confirmed Problem Gastro-esophageal reflux disease without esophagitis (828262592) Gastro-esophageal reflux disease without esophagitis (K21.9) Active confirmed Problem Screening for malignant neoplasm of colon (848675362) Encounter for screening for malignant neoplasm of colon (Z12.11) Active confirmed Problem Gastroparesis (410864643) Gastroparesis (K31.84) Active confirmed Problem Irritable bowel syndrome (32429426) Irritable bowel syndrome without diarrhea (K58.9) Active confirmed Problem Constipation (43713291) Other constipation (K59.09) Active confirmed Problem Iron deficiency anemia (00462593) Iron deficiency anemia (D50.9) Active confirmed Problem Gastroesophageal reflux disease (574728546) Gastroesophageal reflux disease, esophagitis presence not specified (K21.9) Active confirmed Problem Abnormal feces (038857930) Heme + stool (R19.5) Active confirmed Problem Gastritis (3726549) Gastritis (K29.70) Active c onfirmed Problem Generalized abdominal pain (924423706) Abdominal pain, generalized (R10.84) Active confirmed Problem Irritable bowel syndrome characterized by constipation (450503690) Irritable bowel syndrome with constipation (K58.1) Active confirmed Problem Diverticulosis of colon (805907187) Diverticulosis of colon (K57.30) Active confirmed Problem Folate deficiency (101085871) Folate deficiency (E53.8) Active confirmed Plan Of [...] Insured Coverage Start Date Coverage End Date [facility] [id number] [place] [address] [id number] JACOBO LI Self - patient is the [...] hearing aids She denies any history of GA She reports a history of a CVA [...]
== END 2025-02-22 08:53 | disposition home or self-care (01) ==
LOC: HO.CT 08:52
PROVIDERS: PCP Nurse Practitioner Family; Visit Provider Orthopaedic Surgery
DX: S83.242A Other tear of medial meniscus, current injury, left knee, initial encounter (principal)
CPT/HCPCS: 73700

== ENCOUNTER → 2025-02-22 08:54 | Outpatient (BNV) | payer MEDICARE, SELFPAY | PROVIDERS: PCP Nurse Practitioner Family; Visit Provider Radiology Diagnostic Ultrasound | DX: S83.242A Other tear of medial meniscus, current injury, left knee, initial encounter (principal); M17.12 Unilateral primary osteoarthritis, left knee; M25.462 Effusion, left knee | CPT/HCPCS: 73700 ==

== ENCOUNTER 2025-03-20 10:46 | Outpatient (AMB) | payer MEDICARE, SELFPAY ==
[2025-03-20 10:52] VITALS: BP 130/70; PULSE 54; O2SAT 97; BMI 30.2
--- NOTE | 2025-03-20 10:52 | A.OFFVIS_ITS ---
Vital Signs 03/20/25 10:52 Height 5 ft 1 in Weight 159 lb 13.362 oz BMI 30.2 BP 130/70 Blood Pressure Location Lt brachial Position Sitting Pulse 54 Pulse Source Pulse Oximeter Pulse Oximetry (%) 97 Oxygen Delivery Method Room Air Intake Visit Reasons: copd Intake Note: pt is here for follow up and states she has a cold that has affected her breathing in a way, still has a cough Technology Education Teacher Required: No Black Powder Glazing Operator: Black Powder Glazing Operator offered & declined Allergies aspirin (Aspirin) Allergy (Severe, Verified 03/20/25 10:58) ANAPHYLAXIS codeine (Codeine) Allergy (Intermediate, Verified 03/20/25 10:58) SHORTNESS OF BREATH, sob Penicillins Allergy (Intermediate, Verified 03/20/25 10:58) rash phenytoin Allergy (Intermediate, Verified 03/20/25 10:58) SHORTNESS OF BREATH,hives shrimp Allergy (Mild, Verified 03/20/25 10:58) ITCHY, anaphylaxis adhesive tape (ADHESIVE TAPE) Allergy (Unknown, Verified 03/20/25 10:58) RASH Medication List - Last Reconciled 03/20/25 by Cynthia Ga MD albuterol sulfate 90 mcg/actuation 1 puff inhalation Q4-6H atorvastatin 40 mg PO DAILY cholecalciferol (vitamin D3) 25 mcg PO DAILY 90 days citalopram 40 mg PO DAILY clopidogrel 75 mg PO DAILY cyclobenzaprine 10 mg PO BEDTIME PRN 30 days famotidine 40 mg PO DAILY 90 days ferrous sulfate 325 mg PO DAILY folic acid 1 mg PO DAILY 90 days FreeStyle Niyah 2 [place] (flash glucose scanning reader) daily use NS FreeStyle Niyah 2 Sensor (flash glucose sensor) daily use NS gabapentin 600 mg PO TID 90 days lisinopril 2.5 mg PO DAILY 90 days lorazepam 1 mg PO BID PRN 30 days mecobalamin (vitamin B12) 1,000 mcg sublingual DAILY 90 days metoprolol tartrate 50 mg PO BID montelukast 10 mg PO DAILY 90 days tramadol 50 mg PO BEDTIME trazodone 100 mg PO DAILY PRN 30 days HPI HPI copd: Details: This 69 years old female , comes for her 6 months follow-up, She is a lifelong smoker, who has cut down to 5 cigarettes a day and has no intention to stop smoking beyond that. She rolls her own cigarettes. She does complain of increased cough because a few weeks ago she had symptoms of a mild cold. Uses albuterol only once in a while. She has chronic nasal congestion due to allergic rhinitis which is controlled with montelukast 10 mg daily. [facility] Medical History Post laminectomy syndrome History of TIA (transient ischemic attack) Vascular dementia Diabetes Dyslipidemia Fatty liver COPD (chronic obstructive pulmonary disease) Asthma Nicotine dependence, cigarettes, uncomplicated Allergic rhinitis Cough Esophageal stenosis B12 deficiency Vitamin D deficiency Osteopenia Left sided sciatica Surgical History S/P insertion of spinal cord stimulator History of Estevan fundoplication History of appendectomy History of hysterectomy History of esophagogastroduodenoscopy (EGD) History of colonoscopy History of arthroscopic knee surgery History of removal of cyst Family History Father Cirrhosis Brain cancer Mother No problems noted. Social History Housing: House Patient Tobacco Use Status: Current everyday Tobacco user Tobacco use type: Cigarette Cigarette Packs Per Day: 0.5 Cigarettes Per Day: 5 Years Smoked: (onset 13yo, 1ppd x 54yrs, now 1/4ppd, 40PYH) e-Cigarette/Vaping Use: Never Used Second Hand Smoke Exposure: No service: No Current occupational status: retired and disabled Cognitive needs: No Hearing needs: No Vision needs: Yes Review of Systems Const All systems reviewed & are unremarkable except as noted in HPI and below Eyes Reports no additional complaints ENT Reports vertigo, Reports dizziness (Nonspecific off and on.) and Reports nasal congestion (Mild intermittent) Card Denies chest pain, Denies irregular heart rhythm and Denies leg edema Resp Reports as per HPI GI Reports heartburn (CONTROLLED WITH FAMOTIDINE) Reports no additional complaints Musc Reports no additional complaints Skin/Breast Reports system reviewed and no additional complaints, except as documented Neuro Reports vertigo and Reports dizziness (Nonspecific off and on.) Psych Reports no additional complaints and Reports anxiety (HAS TO USE LORAZEPAM 1 MG P.R.N..) Physical Exam Vital Signs: Last Vital Signs Pulse 54 03/20/25 10:52 BP 130/70 03/20/25 10:52 Pulse Ox 97 03/20/25 10:52 Oxygen Delivery Method Room Air 03/20/25 10:52 BMI result Body Mass Index 30.2 Const General: healthy appearing (Slightly pale looking), comfortable, no acute distress, alert and awake Orientation/consciousness: patient oriented x3 HEENT Head: Yes normal to inspection General nose exam: No nasal polyps present and No nasal discharge present Face and sinus: Yes sinuses nontender Mouth: oropharynx normal Throat: Yes posterior oropharynx normal Eyes General: appearance normal, both eyes and all related structures Neck Neck: Yes normal visual inspection, Yes no lymphadenopathy, Yes trachea midline and Yes no JVD Thyroid: Thyroid normal Chest Chest palpation & inspection: normal inspection of the chest, normal palpation of entire chest wall and no tenderness Resp Other: Percussion note is resonant, breath sounds are distant with prolonged expiratory phase but equal on both sides No wheezes rhonchi or Creps were heard. Cardio Palpation: normal PMI Rate: regular rate Rhythm: regular rhythm Heart sounds: no gallops and no murmurs GI Palpation (GI): Soft to palpation, nontender, No hepatosplenomegaly present and no masses Auscultation: normal bowel sounds Back/Spine/Pelvis Thoracic/Lumbar Spine: thoracic and lumbar spine normal to inspection and thoraco-lumbar ROM limited Skin General skin exam: no rashes or lesions noted Neuro General: patient oriented x3 and no focal motor deficits Cranial nerves: Yes CN's II-XII intact bilaterally Extrem General: Yes normal to inspection, Yes no clubbing, cyanosis or edema and Yes no calf tenderness Psych Appearance: grossly normal and well kempt Speech and movement: Normal speech and movement present Office Procedures Spirometry Testing Spirometry Comments: sirometry done 57300- Spirometry Results Reviewed Results Reviewed: SPIROMETRY LDCT OF CHEST IN . CATEGORY 2 BENIGN. Assessment & Plan Assessment & Plan (1) COPD (chronic obstructive pulmonary disease): Comment: (Treated for Mild Bronchial Asthma/COPD in past - normal spiromety) in 2022 TODAY AGAIN SPIROMETRY IS NORMAL . Code(s): J44.9 - Chronic obstructive pulmonary disease, unspecified Category: Medical Plan: Explained to the patient that she does not have any significant obstructive airway disorder at this time. But she probably does have reactive airways and gets bouts of cough after smoking. She will keep albuterol on hand and use 2 puffs Q 6 hours only p.r.n. if any wheezing or persistent cough. (2) Cough: Comment: (mild chronic cough - related to smoking) Code(s): R05 - Cough Category: Medical Plan: See under COPD. Most important thing is to quit smoking which she is not going to do . She may use of cough drops PRN. (3) Nicotine dependence, cigarettes, uncomplicated: Comment: (smoker - onset 13yo, 1ppd x 54yrs, now 1/4ppd, 40PYH) Discussed with her about smoking again today., he is keeping it limited to about 5 cigarettes a day, does not show any motivation to quit completely. Code(s): F17.210 - Nicotine dependence, cigarettes, uncomplicated Category: Medical Plan: Again talked to her about quitting but she is not ready to do that. She is explained that she would have bouts of cough related to smoking . She can use cough drops or Robitussin 2 tsp fulls PRN. Orders: Orders AMB Spirometry Testing Today F17.210 - Nicotine dependence, cigarettes, uncomp licated Coding Level of Care Code Est Pt Level 3 (22974) Diagnoses COPD (chronic obstructive pulmonary disease) J44.9 Cough R05 Nicotine dependence, cigarettes, uncomplicated F17.210 CPT Codes Spirometry - CPT: 38906- Spirometry ([id number])
== END 2025-03-20 11:23 | disposition home or self-care (01) ==
LOC: HO.HPS 10:47
PROVIDERS: PCP Nurse Practitioner Family; Visit Provider Internal Medicine
DX: J44.9 Chronic obstructive pulmonary disease, unspecified (principal); R05.9 Cough, unspecified; F17.210 Nicotine dependence, cigarettes, uncomplicated
CPT/HCPCS: 94010; 99213

== ENCOUNTER → 2025-03-20 10:46 | Outpatient (BNVA) | payer MEDICARE, SELFPAY | PROVIDERS: PCP Nurse Practitioner Family; Visit Provider Internal Medicine | DX: J44.9 Chronic obstructive pulmonary disease, unspecified (principal); R05.9 Cough, unspecified; F17.210 Nicotine dependence, cigarettes, uncomplicated | CPT/HCPCS: 94010; 99212 ==

== ENCOUNTER 2025-03-25 10:34 | Outpatient (AMB) | payer MEDICARE, SELFPAY ==
--- NOTE | 2025-03-25 10:40 | MHC.OFFVIS ---
Vital Signs 03/25/25 10:41 Height 5 ft 1 in Weight 159 lb BMI 30.0 Intake Visit Reasons: OV- Left Knee CT review, neck pain Intake Note: Laura is a 69 year old female who presents with complaints of progressively worsening neck pain as well as left knee pain and giving way. The patient states that she did undergo cervical spine surgery by Dr. Berumen several years ago. She got fairly good relief from that surgery initially. Her neck pain has gotten worse over the last few years. The patient states that she has been told that she ?might require further surgery? on her neck. The patient has not had a recent CT scan of her neck. She does have a stimulator in her low back and is not sure if she can undergo an MRI. The patient states that her left knee will give out several times per day. Allergies aspirin (Aspirin) Allergy (Severe, Verified 03/25/25 10:42) ANAPHYLAXIS codeine (Codeine) Allergy (Intermediate, Verified 03/25/25 10:42) SHORTNESS OF BREATH, sob Penicillins Allergy (Intermediate, Verified 03/25/25 10:42) rash phenytoin Allergy (Intermediate, Verified 03/25/25 10:42) SHORTNESS OF BREATH,hives shrimp Allergy (Mild, Verified 03/25/25 10:42) ITCHY, anaphylaxis adhesive tape (ADHESIVE TAPE) Allergy (Unknown, Verified 03/25/25 10:42) RASH [facility] Medical History (Updated 03/25/25 @ 11:09 by Ayush Pastrana MD) Left knee pain Post laminectomy syndrome History of TIA (transient ischemic attack) Vascular dementia Diabetes Dyslipidemia Fatty liver COPD (chronic obstructive pulmonary disease) Asthma Nicotine dependence, cigarettes, uncomplicated Allergic rhinitis Cough Esophageal stenosis B12 deficiency Vitamin D deficiency Osteopenia Left sided sciatica Surgical History S/P insertion of spinal cord stimulator History of Estevan fundoplication History of appendectomy History of hysterectomy History of esophagogastroduodenoscopy (EGD) History of colonoscopy History of arthroscopic knee surgery History of removal of cyst Family History Father Cirrhosis Brain cancer Mother No problems noted. Social History Housing: House Patient Tobacco Use Status: Current everyday Tobacco user Tobacco use type: Cigarette Cigarette Packs Per Day: 0.5 Cigarettes Per Day: 5 Years Smoked: (onset 13yo, 1ppd x 54yrs, now 1/4ppd, 40PYH) e-Cigarette/Vaping Use: Never Used Second Hand Smoke Exposure: No service: No Current occupational status: retired and disabled Cognitive needs: No Hearing needs: No Vision needs: Yes Physical Exam Vital Signs: BMI result Body Mass Index 30.0 Neck Other: Cervical spine examination shows pain with range of motion, positive Spurling's test, bilateral paraspinal muscle tenderness Extrem Other: Left knee examination shows a minimal effusion, palpable crepitus with range of motion, pain with range of motion Results Reviewed Results Reviewed: CT scan of the patient's left knee shows moderate to severe degenerative joint disease most significant in the medial compartment with joint space narrowing, subchondral sclerosis, osteophyte formation, no acute bony abnormalities Assessment & Plan Assessment & Plan (1) Neck pain: Code(s): M54.2 - Cervicalgia Category: Medical Plan Ms. Ponce presents with progressively worsening neck pain most likely due to cervical stenosis versus degenerative disc disease. Thus, I will send the patient for a CT scan of her cervical spine for further evaluation. She will contact me prior to the imaging study should her symptoms worsen in any way. The patient also has left knee pain and mechanical symptoms due to degenerative joint disease. The patient wishes to hold off on an injection for now. I did have her fitted with a knee brace to help with her symptoms of instability. I do find that the knee brace is a medical necessity to help prevent future falls. She will follow up with me on an as-needed basis should her symptoms worsen in any way. Feel free to call me at any time should questions regarding her orthopedic management arise. I spent 21 minutes in reviewing the patient's records and imaging studies, seeing the patient and documenting in the medical record. Orders: Orders CT cervical spine wo IV con 03/26/25 M54.2 - Cervicalgia Coding Level of Care Code Est Pt Level 3 (01976) Complex visit Add On G2211 Diagnoses Neck pain M54.2
== END 2025-03-25 11:11 | disposition home or self-care (01) ==
LOC: HO.HOS 10:35
PROVIDERS: PCP Nurse Practitioner Family; Visit Provider Orthopaedic Surgery
DX: M54.2 Cervicalgia (principal)
CPT/HCPCS: 99213; G2211

== ENCOUNTER → 2025-03-25 10:34 | Outpatient (BNVA) | payer MEDICARE, SELFPAY | PROVIDERS: PCP Nurse Practitioner Family; Visit Provider Orthopaedic Surgery | DX: M54.2 Cervicalgia (principal); M25.562 Pain in left knee | CPT/HCPCS: 99212 ==